=== PATIENT | male | born 1990 | race Caucasian/White ===

== ENCOUNTER 2017-11-28 16:22 | Inpatient (IN) | payer SELFPAY ==
--- NOTE | 2017-11-28 17:25 | ER Document Report ---
ED Extremity Problem, Lower - General Chief Complaint: Leg Pain Stated Complaint: LEG PAIN Time Seen by Provider: 11/28/17 16:42 Mode of Arrival: Wheelchair Information source: Patient Notes: 27-year-old male presents to ED for complaint of left lower leg pain redness and swelling since this morning. He states there is some drainage from a small opening on the lateral aspect of the lower leg. He states early a.m. about 1: 00 he washed all of his dogs and then went to bed this morning he woke up with pain in his left lower leg. He states it is very swollen and red and it was not that way last night when he went to bed. There is a very small opening to the leg but with clear drainage. States he has never smoked. TRAVEL OUTSIDE OF THE [place] IN LAST 30 DAYS: No - HPI Patient complains to provider of: Pain, Swelling Location: Leg Occurred: This morning Where: Other Onset/Duration: Gradual - He woke up with his leg very swollen red inflamed and painful states it woke him up Quality of pain: Burning, Cramping, Sharp Severity: Moderate Pain Level: 3 Recent injury: No Associated symptoms: Painful ambulation Exacerbated by: Hanging down, Movement, Walking Relieved by: Elevation - Related Data Allergies/Adverse Reactions: No Known Allergies Allergy (Verified 11/28/17 16:24) Past Medical History - General Information source: Patient - Social History Smoking Status: Never Smoker Cigarette use (# per day): No Chew tobacco use (# tins/day): No Smoking Education Provided: No Frequency of alcohol use: Rare Drug Abuse: None Lives with: Family Family History: Reviewed & Not Pertinent Patient has suicidal ideation: No Patient has homicidal ideation: No - Medical History Medical History: Other - Morbidly obese at 199.7 kg BMI of 75.6 - Past Medical History Cardiac Medical History: Reports: None Pulmonary Medical History: Reports: Hx Asthma, Hx Pneumonia EENT Medical History: Reports: None Neurological Medical History: Reports: None Endocrine Medical History: Reports: None Renal/ Medical History: Reports: None Malignancy Medical History: Reports None GI Medical History: Reports: None Musculoskeltal Medical History: Reports Hx Arthritis Skin Medical History: Reports Hx Cellulitis Psychiatric Medical History: Reports: None Traumatic Medical History: Reports: None Infectious Medical History: Reports: None Past Surgical History: Reports: Other - Tracheotomy due to pneumonia and asthma attack - Immunizations Immunizations up to date: Yes Hx Diphtheria, Pertussis, Tetanus Vaccination: Yes Hx Pneumococcal Vaccination: 02/15/14 Review of Systems - Review of Systems Constitutional: No symptoms reported EENT: No symptoms reported Cardiovascular: No symptoms reported Respiratory: No symptoms reported Gastrointestinal: No symptoms reported Genitourinary: No symptoms reported Male Genitourinary: No symptoms reported Musculoskeletal: No symptoms reported Skin: No symptoms reported Hematologic/Lymphatic: No symptoms reported Neurological/Psychological: No symptoms reported -: Yes All other systems reviewed and negative Physical Exam - Vital signs Vitals: Temp Pulse Resp BP Pulse Ox 100.7 F H 131 H 22 H 169/67 H 95 11/28/17 16:33 11/28/17 16:33 11/28/17 16:33 11/28/17 16:33 11/28/17 16:33 Interpretation: Normal, Hypertensive, Tachycardic, Tachypneic, Febrile Notes: Very morbidly obese BMI 75.6 weight 109 9.7 kg height 5 foot 4 inches - General General appearance: Appears well, Alert - HEENT Head: Normocephalic, Atraumatic Eyes: Normal Pupils: PERRL - Respiratory Respiratory status: No respiratory distress Chest status: Nontender Breath sounds: Normal Chest palpation: Normal - Cardiovascular Rhythm: Tachycardia Heart sounds: Normal auscultation Murmur: No - Abdominal Inspection: Normal Distension: No distension Bowel sounds: Normal Tenderness: Nontender Organomegaly: No organomegaly - Back Back: Normal, Nontender - Extremities General upper extremity: Normal inspection, Nontender, Normal color, Normal ROM , Normal temperature General lower extremity: Normal ROM, Normal temperature, Normal weight bearing. No: Feliberto's sign Calf: Tender, Other - Erythematous with the open draining wound on the lower lateral aspect of the leg Ankle: Tender, Edema, Other - Erythema - Neurological Neuro grossly intact: Yes Cognition: Normal Orientation: AAOx4 [place] Coma Scale Eye Opening: Spontaneous [place] Coma Scale Verbal: Oriented [place] Coma Scale Motor: Obeys Commands [place] Coma Scale Total: 15 Speech: Normal Motor strength normal: LUE, RUE, LLE, RLE Sensory: Normal - Psychological Associated symptoms: Normal affect, Normal mood - Skin Skin Temperature: Warm Skin Moisture: Dry Skin Color: Normal Location of irregularity: Extremities Character of irregularity: Erythematous Irregularity with: Scaling, Inflammation, Weeping Course - Re-evaluation Re-evalutation: 11/29/17 01:20 Discussed labs and Doppler with Dr. Euceda to the patient would need to be admitted. The patient was admitted to Dr. Levine. Doppler was negative WBCs for very elevated. Patient was started on clindamycin. - Vital Signs Vital signs: Temp Pulse Resp BP Pulse Ox 99.7 F 113 H 16 126/95 H 100 11/28/17 23:25 11/28/17 20:13 11/29/17 00:01 11/29/17 00:01 11/29/17 00:01 - Laboratory Result Diagrams: 11/28/17 17:55 11/28/17 17:55 Laboratory results interpreted by me: 11/28/17 11/28/17 17:55 19:05 WBC 21.8 H Hgb 11.2 L Hct 34.0 L MCV 74 L MCH 24.4 L RDW 17.1 H Seg Neuts % (Manual) 91 H Band Neutrophils % 1 L Lymphocytes % (Manual) 5 L Monocytes % (Manual) 2 L Abs Neuts (Manual) 20.1 H Urine Urobilinogen 2.0 H Discharge - Discharge Clinical Impression: Cellulitis of left lower extremity Disposition: ADMITTED INPATIENT Admitting Provider: Allison Levine Unit Admitted: Telemetry
[2017-11-28] MEDS ORDERED: NORMAL SALINE 1000 ML 1,000 ML IV ONE (17:28)
[2017-11-28 18:15] LABS: HEMOGLOBIN 11.2 g/dL (13.5-17.0); MEAN CORPUSCULAR HEMOGLOBIN 24.4 pg (27.0-33.4); MEAN CORPUSCULAR VOLUME 74 fl (80-97); PLATELET COUNT 373 10^3/uL (150-450); RED BLOOD COUNT 4.58 10^6/uL (4.35-5.55); RED CELL DISTRIBUTION WIDTH 17.1 % (11.5-14.0); WHITE BLOOD COUNT 21.8 10^3/uL (4.0-10.5)
[2017-11-28 18:34] LABS: ALANINE AMINOTRANSFERASE 50 U/L (21-72); ALBUMIN 3.8 g/dL (3.5-5.0); ALKALINE PHOSPHATASE 91 U/L (38-126); ANION GAP 12 (5-19); ASPARTATE AMINO TRANSFERASE 26 U/L (17-59); BILIRUBIN,DIRECT 0.2 mg/dL (0.0-0.4); BILIRUBIN,TOTAL 0.5 mg/dL (0.2-1.3); BLOOD UREA NITROGEN 13 mg/dL (7-20); CALCIUM 9.2 mg/dL (8.4-10.2); CARBON DIOXIDE 26 mmol/L (22-30); CHLORIDE 103 mmol/L (98-107); GLUCOSE 109 mg/dL (75-110); POTASSIUM 3.9 mmol/L (3.6-5.0); TOTAL PROTEIN 7.3 g/dL (6.3-8.2)
[2017-11-28 18:49] LABS: ABSOLUTE LYMPHOCYTES# (MANUAL) 1.1 10^3/uL (0.5-4.7); ABSOLUTE MONOCYTES # (MANUAL) 0.4 10^3/uL (0.1-1.4); ABSOLUTE NEUTROPHILS# (MANUAL) 20.1 10^3/uL (1.7-8.2); BAND NEUTROPHILS % (MANUAL) 1 % (3-5); BASOPHILS % (MANUAL) 0 % (0-2); EOSINOPHILS % (MANUAL) 1 % (0-6); LYMPHOCYTES % (MANUAL) 5 % (13-45); MONOCYTES % (MANUAL) 2 % (3-13); SEGMENTED NEUTROPHILS % (MAN) 91 % (42-78); TOTAL CELLS COUNTED 100
[2017-11-28 18:51] LABS: TOXIC GRANULATION SLIGHT; TOXIC VACUOLATION PRESENT
[2017-11-28 18:52] LABS: ANISOCYTOSIS 1+; OVALOCYTES SLIGHT; PLATELET COMMENT ADEQUATE; POIKILOCYTOSIS SLIGHT
[2017-11-28] MEDS ORDERED: ACETAMINOPHEN 325 MG TABLET PO ONE (19:02)
[2017-11-28 19:27] LABS: APPEARANCE,URINE CLEAR; BILIRUBIN,URINE NEGATIVE (NEGATIVE); COLOR,URINE YELLOW; GLUCOSE, URINE NEGATIVE (NEGATIVE); KETONES,URINE NEGATIVE (NEGATIVE); LEUKOCYTE ESTERASE,URINE NEGATIVE (NEGATIVE); NITRITE,URINE NEGATIVE (NEGATIVE); PROTEIN,URINE NEGATIVE (NEGATIVE); URINE SPECIFIC GRAVITY 1.021
[2017-11-28] MEDS ORDERED: CLINDAMYCIN 600 MG/D5W RTU 600 MG/50 ML RTUPB IV ONE (20:09)
--- NOTE | 2017-11-28 20:29 | RADIOLOGY REPORT (SQ) ---
EXAM DESCRIPTION: VENOUS UNILATERAL LOWER COMPLETED DATE/TIME: 11/28/2017 8:20 pm REASON FOR STUDY: swelling pain to left leg COMPARISON: None. TECHNIQUE: Dynamic and static boyer scale and color images acquired of the the left leg venous system . Selected spectral images acquired with additional compression and augmentation maneuvers. The contr alateral common femoral vein and saphenofemoral junction were also imaged. Images stored on PACS. LIMITATIONS: Morbid obesity. FINDINGS: No DVT visualized in the visualized portions of the left femoral and popliteal veins. OTHER: No other significant finding. CONTRALATERAL COMMON FEMORAL VEIN AND SAPHENOFEMORAL JUNCTION: Normal phasicity, compression and augmentation. No visualized echogenic material on boyer scale. No de fects on color images. IMPRESSION: No DVT visualized in the visualized portions of the left femoral and popliteal veins. TECHNICAL DOCUMENTATION: JOB ID: [id number]- All Rights Reserved Reading location - IP/workstation name: [email or web address]
[2017-11-28] MEDS ORDERED: MAG HYDROX/AL HYDROX/SIMETH SUSP 30 ML UDCUP PO PRN (20:50)
[2017-11-28] MEDS ORDERED: ONDANSETRON HCL INJ/PF 4 MG/2 ML SDV IV PRN (20:50)
[2017-11-28] MEDS: NORMAL SALINE 1000 ML 1,000 ML IV SCH (23:29)
[2017-11-28] MEDS: HEPARIN SOD (PORCINE) 5,000 UNIT/ML 1 ML SYRINGE SUBCUT SCH (23:30)
[2017-11-29] MEDS: KETOROLAC TROMETHAMINE INJ/PF 30 MG/1 ML SDV IV PRN (03:57)
[2017-11-29] MEDS ORDERED: CLINDAMYCIN 900 MG/D5W RTU 900 MG/50 ML RTUPB IV ONE (04:00)
[2017-11-29] MEDS ORDERED: LEVOFLOXACIN 750 MG/D5W RTU 750 MG/150 ML RTUPB IV ONE (04:00)
[2017-11-29] MEDS: ACETAMINOPHEN 325 MG TABLET PO PRN (04:46)
--- NOTE | 2017-11-29 06:21 | PDOC H&P ---
History of Present Illness Admission Date/PCP: 11/28/17 20:55 KAYLIE BEAR MD Patient complains of: Left leg pain and swelling History of Present Illness: MOON ALEJO JR is a 27 year old male with history of super morbid obesity, venous stasis and debility. Patient presents with 48 hours of increasing left lower extremity pain and swelling of the last 12 hours he developed serosanguineous exudate and fever. In the emergency room is found to have leukocytosis, fever and referred to the hospitalist for admission. Patient denies injury, recent antibiotic use, admits multiple previous episodes. Lower extremity Doppler negative for DVT. Past Medical History Cardiac Medical History: Reports: None Pulmonary Medical History: Reports: Asthma, Pneumonia EENT Medical History: Reports: None Neurological Medical History: Reports: None Endocrine Medical History: Reports: None, Diabetes Mellitus Type 2 Renal/ Medical History: Reports: None Malignancy Medical History: Reports: None GI Medical History: Reports: None Musculoskeltal Medical History: Reports: Arthritis Psychiatric Medical History: Reports: None Traumatic Medical History: Reports: None Infectious Medical History: Reports: None Past Surgical History Past Surgical History: Reports: Orthopedic Surgery, Other - Tracheotomy due to pneumonia and asthma attack Social History Information Source: Patient Lives with: Family Smoking Status: Never Smoker Frequency of Alcohol Use: Rare Hx Recreational Drug Use: No Drugs: None Hx Prescription Drug Abuse: No - Advance Directive Resuscitation Status: Full Code Family History Family History: COPD, DM Parental Family History Reviewed: Yes Children Family History Reviewed: Yes Sibling(s) Family History Reviewed.: Yes Medication/Allergy Home Medications: Albuterol Sulfate [Ventolin Hfa] 2 puff IH Q4HP PRN 11/28/17 Fluticasone/Salmeterol [Advair 250-50 Diskus 28 dose] 1 puff IH Q12 11/28/17 Pantoprazole Sodium [Protonix] 40 mg PO DAILY 11/28/17 Allergies/Adverse Reactions: No Known Allergies Allergy (Verified 11/28/17 16:24) Review of Systems Constitutional: PRESENT: as per HPI, fatigue, weakness, weight gain Eyes: ABSENT: visual disturbances Ears: ABSENT: hearing changes Cardiovascular: ABSENT: chest pain, dyspnea on exertion, edema, orthropnea, palpitations Respiratory: ABSENT: cough, hemoptysis Gastrointestinal: ABSENT: abdominal pain, constipation, diarrhea, hematemesis, hematochezia, nausea, vomiting Genitourinary: ABSENT: dysuria, hematuria Musculoskeletal: ABSENT: joint swelling Integumentary: PRESENT: as per HPI, erythema, lesions, wounds. ABSENT: rash Neurological: ABSENT: abnormal gait, abnormal speech, confusion, dizziness, focal weakness, syncope Psychiatric: ABSENT: anxiety, depression, homidical ideation, suicidal ideation Endocrine: ABSENT: cold intolerance, heat intolerance, polydipsia, polyuria Hematologic/Lymphatic: ABSENT: easy bleeding, easy bruising Physical Exam Vital Signs: Temp Pulse Resp BP Pulse Ox 101.7 F H 105 H 21 H 140/55 H 95 11/29/17 04:08 11/29/17 04:08 11/29/17 04:08 11/29/17 04:08 11/29/17 04:08 Intake & Output 11/27/17 11/28/17 11/29/17 11:59 11:59 11:59 Weight 199.7 kg General appearance: PRESENT: cooperative, mild distress, morbidly obese Head exam: PRESENT: atraumatic, normocephalic Eye exam: PRESENT: conjunctiva pink, EOMI, PERRLA. ABSENT: scleral icterus Ear exam: PRESENT: normal external ear exam Mouth exam: PRESENT: moist, tongue midline Neck exam: ABSENT: carotid bruit, JVD, lymphadenopathy, thyromegaly Respiratory exam: PRESENT: clear to auscultation les. ABSENT: rales, rhonchi, wheezes Cardiovascular exam: PRESENT: RRR. ABSENT: diastolic murmur, rubs, systolic murmur Pulses: PRESENT: normal dorsalis pedis pul Vascular exam: PRESENT: normal capillary refill GI/Abdominal exam: PRESENT: normal bowel sounds, soft. ABSENT: distended, guarding, mass, organolmegaly, rebound, tenderness Rectal exam: PRESENT: deferred Extremities exam: PRESENT: calf tenderness, tenderness, +2 edema Neurological exam: PRESENT: alert, awake, oriented to person, oriented to place , oriented to time, oriented to situation, CN II-XII grossly intact. ABSENT: motor sensory deficit Psychiatric exam: PRESENT: appropriate affect, normal mood. ABSENT: homicidal ideation, suicidal ideation Skin exam: PRESENT: erythema, warm. ABSENT: intact Results Impressions: Venous Doppler Study 11/28/17 17:17 IMPRESSION: No DVT visualized in the visualized portions of the left femoral and popliteal veins. Assessment & Plan - Diagnosis (1) Venous stasis Is this a current diagnosis for this admission?: Yes Plan: Elevation heparin and MAURICE stockings as tolerated (2) Morbid obesity with BMI of 70 and over, adult Is this a current diagnosis for this admission?: Yes Plan: Morbid obesity will evaluate for metabolic cause with evaluation of thyroid function and dietitian consultation (3) Cellulitis of left lower extremity Is this a current diagnosis for this admission?: Yes Plan: Empiric antibiotics with coverage for community-acquired MRSA. Follow-up blood culture and CBC - Time Time Spent: 30 to 50 Minutes - Inpatient Certification Medical Necessity: Need Close Monitoring Due to Risk of Patient Decompensation
[2017-11-29 06:26] LABS: ABSOLUTE BASOPHILS # (AUTO) 0.1 10^3/uL (0.0-0.2); ABSOLUTE LYMPHOCYTES (AUTO) 1.2 10^3/uL (0.5-4.7); ABSOLUTE NEUT (AUTO) 11.5 10^3/uL (1.7-8.2); BASOPHILS % (AUTO) 0.5 % (0-2); EOSINOPHILS % (AUTO) 0.2 % (0-6); HEMATOCRIT 32.3 % (37.9-51.0); HEMOGLOBIN 10.7 g/dL (13.5-17.0); LYMPHOCYTES % (AUTO) 8.5 % (13-45); MEAN CORPUSCULAR HEMOGLOBIN 24.2 pg (27.0-33.4); MEAN CORPUSCULAR HGB CONC 33.1 g/dL (32.0-36.0); MEAN CORPUSCULAR VOLUME 73 fl (80-97); MONOCYTES % (AUTO) 7.2 % (3-13); PLATELET COUNT 299 10^3/uL (150-450); RED BLOOD COUNT 4.41 10^6/uL (4.35-5.55); RED CELL DISTRIBUTION WIDTH 17.7 % (11.5-14.0); SEGMENTED NEUTROPHILS % (AUTO) 83.6 % (42-78); TOTAL CELLS COUNTED % (AUTO) 100 %; WHITE BLOOD COUNT 13.7 10^3/uL (4.0-10.5)
[2017-11-29] MEDS: HEPARIN SOD (PORCINE) 5,000 UNIT/ML 1 ML SYRINGE SUBCUT SCH ×3 (06:42→22:50)
[2017-11-29 06:44] LABS: ANION GAP 10 (5-19); BLOOD UREA NITROGEN 15 mg/dL (7-20); CALCIUM 8.9 mg/dL (8.4-10.2); CARBON DIOXIDE 25 mmol/L (22-30); CHLORIDE 107 mmol/L (98-107); GLUCOSE 103 mg/dL (75-110); POTASSIUM 3.8 mmol/L (3.6-5.0); SODIUM 142.4 mmol/L (137-145)
[2017-11-29] MEDS: NORMAL SALINE 1000 ML 1,000 ML IV SCH ×2 (10:37→18:19)
[2017-11-29] MEDS: DOCUSATE SODIUM 100 MG CAPSULE PO SCH ×2 (13:02→18:18)
[2017-11-29] MEDS ORDERED: CLINDAMYCIN 900 MG/D5W RTU 900 MG/50 ML RTUPB IV SCH (14:00)
[2017-11-29] MEDS: CLINDAMYCIN 900 MG/D5W RTU 900 MG/50 ML RTUPB IV SCH ×2 (14:49→22:50)
--- NOTE | 2017-11-29 22:07 | Progress Note ---
Provider Note Provider Note: Agree with academic advisor plan of care. Patient seen this morning on rounds, he remains afebrile and nontoxic appearing. +erythema and +1 edema to LLE. No drainage noted to LLE. The plan is as follows: 1. Cellulitis - empiric antibiotic coverage. Wound and blood cultures pending. 2. Asthma - patient endorses history. Continue home dose Advair.
[2017-11-30] MEDS: ACETAMINOPHEN 325 MG TABLET PO PRN (01:06)
[2017-11-30 05:29] LABS: ABSOLUTE EOSINOPHILS # (AUTO) 0.1 10^3/uL (0.0-0.6); ABSOLUTE LYMPHOCYTES (AUTO) 1.2 10^3/uL (0.5-4.7); ABSOLUTE MONOCYTES (AUTO) 0.9 10^3/uL (0.1-1.4); ABSOLUTE NEUT (AUTO) 6.4 10^3/uL (1.7-8.2); BASOPHILS % (AUTO) 0.4 % (0-2); EOSINOPHILS % (AUTO) 0.6 % (0-6); MEAN CORPUSCULAR HEMOGLOBIN 24.4 pg (27.0-33.4); MEAN CORPUSCULAR HGB CONC 33.4 g/dL (32.0-36.0); MEAN CORPUSCULAR VOLUME 73 fl (80-97); MONOCYTES % (AUTO) 10.4 % (3-13); PLATELET COUNT 294 10^3/uL (150-450); RED BLOOD COUNT 4.11 10^6/uL (4.35-5.55); RED CELL DISTRIBUTION WIDTH 17.1 % (11.5-14.0); SEGMENTED NEUTROPHILS % (AUTO) 74.6 % (42-78); TOTAL CELLS COUNTED % (AUTO) 100 %; WHITE BLOOD COUNT 8.7 10^3/uL (4.0-10.5)
[2017-11-30 05:50] LABS: ANION GAP 10 (5-19); BLOOD UREA NITROGEN 11 mg/dL (7-20); CALCIUM 8.9 mg/dL (8.4-10.2); CARBON DIOXIDE 24 mmol/L (22-30); CHLORIDE 107 mmol/L (98-107); GLUCOSE 90 mg/dL (75-110); PHOSPHORUS 3.7 mg/dL (2.5-4.5); POTASSIUM 3.9 mmol/L (3.6-5.0); SODIUM 140.9 mmol/L (137-145)
[2017-11-30] MEDS: CLINDAMYCIN 900 MG/D5W RTU 900 MG/50 ML RTUPB IV SCH ×3 (06:18→21:15)
[2017-11-30] MEDS: HEPARIN SOD (PORCINE) 5,000 UNIT/ML 1 ML SYRINGE SUBCUT SCH ×3 (06:29→21:15)
[2017-11-30] MEDS: IPRATROPIUM/ALBUTEROL 0.5-2.5 MG/3 ML AMPUL NEB PRN (08:11)
[2017-11-30] MEDS: LEVOFLOXACIN 750 MG/D5W RTU 750 MG/150 ML RTUPB IV SCH (10:23)
[2017-11-30] MEDS: DOCUSATE SODIUM 100 MG CAPSULE PO SCH ×2 (10:23→17:36)
--- NOTE | 2017-11-30 16:34 | PDOC PROGRESS REPORT ---
Subjective Progress Note for:: 11/30/17 Subjective:: MOON ALEJO JR is a 27 year old morbidly obese (BMI 75.6) man with a PMH of asthma who presents to [facility] with cellulitis of the LLE. The patient was seen this morning on rounds, he is resting comfortably in bed on room air. He states that his LLE feels much better today, he denies pain or TTP to the affected area. He also denies fever or chills and states he is able to able to ambulate without difficulty. The erythema and edema of LLE has decreased significantly in the last 24 hours. Reason For Visit: LEFT LEG CELLULITIS,SUPER MORBID OBESITY Physical Exam Vital Signs: Temp Pulse Resp BP Pulse Ox 98.8 F 95 18 144/75 H 95 11/30/17 12:00 11/30/17 14:00 11/30/17 12:00 11/30/17 12:00 11/30/17 12:00 Intake & Output 11/29/17 11/30/17 12/01/17 06:59 06:59 06:59 Intake Total 1200 5889 Balance 1200 5889 Weight 199.7 kg 199.7 kg General appearance: PRESENT: morbidly obese Eye exam: PRESENT: conjunctiva pink, PERRLA Mouth exam: PRESENT: moist Neck exam: PRESENT: full ROM Respiratory exam: PRESENT: clear to auscultation les, symmetrical, unlabored Cardiovascular exam: PRESENT: +S1, +S2 Pulses: PRESENT: normal radial pulses, normal dorsalis pedis pul GI/Abdominal exam: PRESENT: soft. ABSENT: tenderness Rectal exam: PRESENT: deferred Extremities exam: PRESENT: full ROM, other - CIRCUMFRENTAL ERYTHEMA NOTED TO THE LEFT LOWER EXTREMITY, BELOW THE KNEE Musculoskeletal exam: PRESENT: ambulatory, full ROM Neurological exam: PRESENT: alert, awake, oriented to person, oriented to place , oriented to time, oriented to situation Psychiatric exam: PRESENT: appropriate affect Skin exam: PRESENT: dry, intact, warm Results Laboratory Results: 11/30/17 05:10 11/30/17 05:10 11/30/17 11/30/17 05:10 05:10 WBC 8.7 RBC 4.11 L Hgb 10.0 L Hct 30.0 L MCV 73 L MCH 24.4 L MCHC 33.4 RDW 17.1 H Plt Count 294 Seg Neutrophils % 74.6 Lymphocytes % 14.0 Monocytes % 10.4 Eosinophils % 0.6 Basophils % 0.4 Absolute Neutrophils 6.4 Absolute Lymphocytes 1.2 Absolute Monocytes 0.9 Absolute Eosinophils 0.1 Absolute Basophils 0.0 Sodium 140.9 Potassium 3.9 Chloride 107 Carbon Dioxide 24 Anion Gap 10 BUN 11 Creatinine 0.64 Est GFR ( Amer) > 60 Est GFR (Non-Af Amer) > 60 Glucose 90 Calcium 8.9 Phosphorus 3.7 Magnesium 2.0 Impressions: Venous Doppler Study 11/28/17 17:17 IMPRESSION: No DVT visualized in the visualized portions of the left femoral and popliteal veins. Status: Imported from PACS Assessment & Plan - Diagnosis (1) Cellulitis of left lower extremity Is this a current diagnosis for this admission?: Yes Plan: The patient presented with erythema, pain, and edema to the LLE that began hours after bathing his dogs. Circumferential erythema and edema is present to the LLE below the knee, terminating at the ankle Improving leukocytosis 21->8.7 Remains afebrile and non-toxic appearing Wound culture positive for G+ cocci and Klebsiella Pneumonia Blood cultures no growth to date Continue Clindamycin and Levaquin. Klebsiella is susceptible to Levaquin, will keep Clindamycin for Strep/Staph coverage. Meets criteria for inpatient stay given the ongoing need for IV antibiotics (2) Asthma Qualifiers: Asthma severity: unspecified severity Asthma persistence: intermittent Asthma complication type: uncomplicated Qualified Code(s): J45.20 - Mild intermittent asthma, uncomplicated Is this a current diagnosis for this admission?: Yes Plan: Patient endorses a history of asthma Continue home dose advair PRN nebulizer treatments for dysnea/shortness of breath (3) Morbid obesity with BMI of 70 and over, adult Is this a current diagnosis for this admission?: Yes Plan: Patient's BMI is 75.6 kg/m2, well above the CDC's upper limit for morbid obesity (35 kg/m2) Exercise caution with dietary choices - no high fat foods, no soda, limited sugar - Time Time Spent with patient: 15-24 minutes Medications reviewed and adjusted accordingly: Yes Anticipated discharge: Home - Inpatient Certification Based on my medical assessment, after consideration of the patient's comorbidities, presenting symptoms, or acuity I expect that the services needed warrant INPATIENT care.: Yes I certify that my determination is in accordance with my understanding of Medicare's requirements for reasonable and necessary INPATIENT services [42 CFR 412.3e].: Yes Medical Necessity: Need for IV Antibiotics, Risk of Complication if Not Cared For in Hospital
[2017-11-30] MEDS: NORMAL SALINE 1000 ML 1,000 ML IV SCH (17:40)
[2017-11-30] MEDS: KETOROLAC TROMETHAMINE INJ/PF 30 MG/1 ML SDV IV PRN (19:57)
[2017-12-01] MEDS: IPRATROPIUM/ALBUTEROL 0.5-2.5 MG/3 ML AMPUL NEB PRN ×2 (00:53→14:02)
[2017-12-01] MEDS: CLINDAMYCIN 900 MG/D5W RTU 900 MG/50 ML RTUPB IV SCH ×2 (06:24→13:10)
[2017-12-01] MEDS: HEPARIN SOD (PORCINE) 5,000 UNIT/ML 1 ML SYRINGE SUBCUT SCH ×2 (06:24→13:11)
[2017-12-01 07:51] LABS: ABSOLUTE BASOPHILS # (AUTO) 0.1 10^3/uL (0.0-0.2); ABSOLUTE EOSINOPHILS # (AUTO) 0.2 10^3/uL (0.0-0.6); ABSOLUTE MONOCYTES (AUTO) 0.7 10^3/uL (0.1-1.4); ABSOLUTE NEUT (AUTO) 6.7 10^3/uL (1.7-8.2); BASOPHILS % (AUTO) 0.6 % (0-2); EOSINOPHILS % (AUTO) 2.1 % (0-6); HEMATOCRIT 30.3 % (37.9-51.0); LYMPHOCYTES % (AUTO) 11.3 % (13-45); MEAN CORPUSCULAR HEMOGLOBIN 24.4 pg (27.0-33.4); MEAN CORPUSCULAR HGB CONC 32.9 g/dL (32.0-36.0); MEAN CORPUSCULAR VOLUME 74 fl (80-97); MONOCYTES % (AUTO) 7.7 % (3-13); PLATELET COUNT 290 10^3/uL (150-450); RED BLOOD COUNT 4.09 10^6/uL (4.35-5.55); RED CELL DISTRIBUTION WIDTH 17.6 % (11.5-14.0); SEGMENTED NEUTROPHILS % (AUTO) 78.3 % (42-78); TOTAL CELLS COUNTED % (AUTO) 100 %; WHITE BLOOD COUNT 8.6 10^3/uL (4.0-10.5)
[2017-12-01] MEDS: LEVOFLOXACIN 750 MG/D5W RTU 750 MG/150 ML RTUPB IV SCH (10:41)
[2017-12-01] MEDS: DOCUSATE SODIUM 100 MG CAPSULE PO SCH (10:41)
[2017-12-01 13:28] VITALS: BP 142/80
--- NOTE | 2017-12-04 08:44 | PDOC DISCHARGE SUMMARY ---
General - Admit/Disc Date/PCP Admission Date/Primary Care Provider: 11/28/17 20:55 KAYLIE BEAR MD Discharge Date: 12/01/17 - Discharge Diagnosis (1) Cellulitis of left lower extremity Is this a current diagnosis for this admission?: Yes (2) Asthma Is this a current diagnosis for this admission?: Yes (3) Morbid obesity with BMI of 70 and over, adult Is this a current diagnosis for this admission?: Yes - Additional Information Resuscitation Status: Full Code Discharge Diet: As Tolerated Discharge Activity: Activity As Tolerated Prescriptions: Clindamycin HCl 600 mg PO Q8H #21 capsule Levofloxacin [Levaquin 750 mg Tablet] 750 mg PO DAILY #7 tab Home Medications: Albuterol Sulfate [Ventolin Hfa] 2 puff IH Q4HP PRN 11/28/17 Fluticasone/Salmeterol [Advair 250-50 Diskus 28 dose] 1 puff IH Q12 11/28/17 Pantoprazole Sodium [Protonix] 40 mg PO DAILY 11/28/17 Clindamycin HCl 600 mg PO Q8H #21 capsule 12/01/17 Levofloxacin [Levaquin 750 mg Tablet] 750 mg PO DAILY #7 tab 12/01/17 History of Present Illness History of Present Illness: MOON ALEJO JR is a 27 year old male with history of super morbid obesity, venous stasis and debility. Patient presents with 48 hours of increasing left lower extremity pain and swelling of the last 12 hours he developed serosanguineous exudate and fever. In the emergency room is found to have leukocytosis, fever and referred to the hospitalist for admission. Patient denies injury, recent antibiotic use, admits multiple previous episodes. Lower extremity Doppler negative for DVT. Hospital Course Hospital Course: 27 y.o. super morbidly obese male who presented with erythema, pain, and edema to the LLE that began hours after bathing his dogs. On physical exam, circumferential erythema and edema was present to the LLE below the knee, terminating at the ankle. There was a small puncture wound to the anterior lower leg that was draining purulent fluid. The patient initially presented with leukocytosis (WBC 21) but remained afebrile and non-toxic appearing. Blood cultures were negative, but wound culture was positive for G+ cocci and Klebsiella Pneumonia. The patient was being treated with Clindamycin and Levaquin. Klebsiella was susceptible to Levaquin, continued Clindamycin for Strep/Staph coverage. The patient's symptoms greatly improved over the course of 3 days. His leukocytosis resolved, remained afebrile, and erythema significantly diminished. The open wound on the anterior LLE was no longer draining. The patient was sent home with 7 days of oral antibiotic treatment to complete a 10 day course of treatment. Discharge instructions were thoroughly explained to the patient, he stated understanding. Physical Exam Vital Signs: Temp Pulse Resp BP Pulse Ox 98.6 F 88 16 142/80 H 96 12/01/17 14:58 12/01/17 14:58 12/01/17 14:58 12/01/17 14:58 12/01/17 14:58 Results Laboratory Results: 12/01/17 07:03 11/30/17 05:10 Impressions: Venous Doppler Study 11/28/17 17:17 IMPRESSION: No DVT visualized in the visualized portions of the left femoral and popliteal veins. Status: Imported from PACS Qualifiers - * PATIENT BEING DISCHARGED WITH ANY OF THE FOLLOWING DIAGNOSIS: No Plan Discharge Plan: DISCHARGE HOME WITH PO ANTIBIOTICS Time Spent: Less than 30 Minutes
== END 2017-12-01 15:29 | disposition home or self-care (01) | DRG 603 ==
LOC: ER 16:22 → EH 20:55 → 5 11-29 04:07
PROVIDERS: ADMIT Internal Medicine; ATTEND Internal Medicine
DX: L03.116 Cellulitis of left lower limb (principal); Z68.45 Body mass index [BMI] 70 or greater, adult; E66.01 Morbid (severe) obesity due to excess calories; J45.20 Mild intermittent asthma, uncomplicated; M19.90 Unspecified osteoarthritis, unspecified site; I87.8 Other specified disorders of veins; E11.9 Type 2 diabetes mellitus without complications; B96.1 Klebsiella pneumoniae [K. pneumoniae] as the cause of diseases classified elsewhere; B96.89 Other specified bacterial agents as the cause of diseases classified elsewhere; Z79.51 Long term (current) use of inhaled steroids; Z83.3 Family history of diabetes mellitus
CPT/HCPCS: 36415; 80048; 80053; 81001; 83735; 84100; 85025; 87040; 87070; 87077; 87186; 87205; 93971; 94640; 96361; 96365; 99285; J1644; J1885; J1956; J2405; J7030; J7620

== ENCOUNTER 2018-06-27 18:01 | Inpatient (IN) | payer SELFPAY ==
--- NOTE | 2018-06-27 19:34 | ER Document Report ---
ED Medical Screen (RME) - General Chief Complaint: Mouth Problem Stated Complaint: FATIGUE/NECK PAIN Time Seen by Provider: 06/27/18 19:24 Information source: Patient Notes: Patient presents complaining of neck and tongue pain with fatigue. Patient reports exertional shortness of breath and decreased appetite. Patient reports increased fatigue stating that he has slept at least half the day over the past 3 days. I have greeted and performed a rapid initial assessment of this patient. A comprehensive ED assessment and evaluation of the patient, analysis of test results and completion of the medical decision making process will be conducted by additional ED providers. TRAVEL OUTSIDE OF THE [place] IN LAST 30 DAYS: No - Related Data Allergies/Adverse Reactions: No Known Allergies Allergy (Verified 06/27/18 18:09) Past Medical History - Social History Chew tobacco use (# tins/day): No Frequency of alcohol use: None Drug Abuse: None Pulmonary Medical History: Reports: Hx Asthma, Hx Pneumonia Endocrine Medical History: Reports: Hx Diabetes Mellitus Type 2 Renal/ Medical History: Denies: Hx Peritoneal Dialysis Musculoskeltal Medical History: Reports Hx Arthritis Skin Medical History: Reports Hx Cellulitis Past Surgical History: Reports: Hx Orthopedic Surgery, Other - Tracheotomy due to pneumonia and asthma attack - Immunizations Immunizations up to date: Yes Hx Diphtheria, Pertussis, Tetanus Vaccination: Yes Physical Exam - Vital signs Vitals: Temp Pulse Resp BP Pulse Ox 99.8 F 103 H 22 H 148/81 H 93 06/27/18 18:07 06/27/18 18:07 06/27/18 18:07 06/27/18 18:07 06/27/18 18:07 - General General appearance: Alert Notes: Morbidly obese, able to speak without any dyspnea Course - Vital Signs Vital signs: Temp Pulse Resp BP Pulse Ox 99.8 F 103 H 22 H 148/81 H 93 06/27/18 18:07 06/27/18 18:07 06/27/18 18:07 06/27/18 18:07 06/27/18 18:07 Doctor's Discharge - Discharge Referrals: KAYLIE BEAR MD [Primary Care Provider] - Follow up as needed
--- NOTE | 2018-06-27 20:31 | RADIOLOGY REPORT (SQ) ---
EXAM DESCRIPTION: CHEST 2 VIEWS COMPLETED DATE/TIME: 06/27/2018 8:05 pm REASON FOR STUDY: exertional sob COMPARISON: 07/27/2015 EXAM PARAMETERS: NUMBER OF VIEWS: two views TECHNIQUE: Digital Frontal and Lateral radiographic views of the chest acquired. RADIATION DOSE: NA LIMITATIONS: none FINDINGS: LUNGS AND PLEURA: Diffuse bilateral interstitial pulmonary opacity. MEDIASTINUM AND HILAR STRUCTURES: No masses or contour abnormalities. HEART AND VASCULAR STRUCTURES: Cardiomegaly and prominence of the pulmonary vasculature. BONES: No acute findings. HARDWARE: None in the chest. OTHER: No other significant finding. IMPRESSION: Diffuse bilateral interstitial pulmonary opacity, likely mild pulmonary edema in the set ting of cardiomegaly. There is no focal airspace opacity. TECHNICAL DOCUMENTATION: JOB ID: [id number] [employer]- All Rights Reserved Reading location - IP/workstation name: [email or web address]
[2018-06-27 20:42] LABS: ABSOLUTE NEUT (AUTO) 9.2 10^3/uL (1.7-8.2); BASOPHILS % (AUTO) 0.3 % (0-2); HEMOGLOBIN 11.5 g/dL (13.5-17.0); LYMPHOCYTES % (AUTO) 8.9 % (13-45); MEAN CORPUSCULAR HGB CONC 33.7 g/dL (32.0-36.0); MEAN CORPUSCULAR VOLUME 74 fl (80-97); MONOCYTES % (AUTO) 8.7 % (3-13); PLATELET COUNT 281 10^3/uL (150-450); RED BLOOD COUNT 4.59 10^6/uL (4.35-5.55); RED CELL DISTRIBUTION WIDTH 17.3 % (11.5-14.0); SEGMENTED NEUTROPHILS % (AUTO) 82.1 % (42-78); TOTAL CELLS COUNTED % (AUTO) 100 %; WHITE BLOOD COUNT 11.2 10^3/uL (4.0-10.5)
[2018-06-27 20:59] LABS: ALANINE AMINOTRANSFERASE 41 U/L (21-72); ALBUMIN 3.6 g/dL (3.5-5.0); ALKALINE PHOSPHATASE 85 U/L (38-126); ANION GAP 7 (5-19); ASPARTATE AMINO TRANSFERASE 56 U/L (17-59); BILIRUBIN,DIRECT 0.3 mg/dL (0.0-0.4); BILIRUBIN,TOTAL 0.8 mg/dL (0.2-1.3); BLOOD UREA NITROGEN 13 mg/dL (7-20); CALCIUM 8.7 mg/dL (8.4-10.2); CARBON DIOXIDE 32 mmol/L (22-30); CHLORIDE 95 mmol/L (98-107); CREATINE KINASE 972 U/L (55-170); GLUCOSE 107 mg/dL (75-110); SODIUM 134.2 mmol/L (137-145); TOTAL PROTEIN 7.5 g/dL (6.3-8.2)
[2018-06-27 21:10] LABS: CREATINE KINASE MB 3.63 ng/mL (<4.55); NT PRO BNP 162 pg/mL (<125); TROPONIN I < 0.012 ng/mL
--- NOTE | 2018-06-27 22:39 | RADIOLOGY REPORT (SQ) ---
EXAM DESCRIPTION: CT CHEST ANGIOGRAPHY WITHOUT THEN WITH IV CONTRAST COMPLETED DATE/TME: 06/27/2018 21:14 CLINICAL HISTORY: 28 years, Male, sob red leg elevated d-dimer 2.0 COMPARISON: None. TECHNIQUE: 639 Images stored on PACS. All CT scanners at this facility use dose modulation, iterative reconstruction, and/or weight based dosing when appropriate to reduce radiation dose to as low as reasonably achievable (ALARA). Axial CTA images were obtained with coronal and sagittal MIPS. 3-D rec constructions were obtained on a dedicated workstation. [facility]: Dose Right [facility]: CareDose [facility]: Dose Right [facility]: Teradose 4D [facility]: PredictionIO LIMITATIONS: None. FINDINGS: Limited study due to patient body habitus and contrast bolus. However there is no large or central pulmonary embolus. Negative for thoracic aortic aneurysm or dissection. The heart and pericardium are unremarkable. Limited evaluation of the upper abdomen shows fatty infiltrative change to the liver. No mediastinal or hilar adenopathy. Osseous structures are grossly intact. No pneumothorax. The visualized airways are patent. Some equivocal groundglass opacities in the perihilar regions may reflect minor pneumonitis. There is an approximately 7.7 mm pleural-based nodule in the posterior left lung base. Please refer to below Fleischner Society criteria for further assessment. IMPRESSION: Limited study however no central pulmonary embolus. Negative for thoracic aortic aneurysm, or dissection. Equivocal groundglass opacities suggesting minor pneumonitis. 7.7 mm nodule in the posterior left lung base. 2017 Fleischner Society Recommendations for Single Solid Lung Nodule Follow-Up based on size (average of long- and short-axis diameters) <6 mm Low-Risk Patient: No routine follow-up <6 mm High-Risk Patient: Optional CT at 12 months 6-8 mm Low-Risk Patient: CT at 6-[address] at 18-24 months 6-8 mm High-Risk Patient: CT at 6-[address] at 18-24 months >8 mm Low-Risk Patient: Consider CT, PET/CT or tissue sampling at 3 months >8 mm High-Risk Patient: Same as for low-risk patient TECHNICAL DOCUMENTATION: Quality ID # [id number]: Final reports with documentation of one or more dose reduction techniques (e.g., Automated exposure control, adjustment of the mA and/or kV according to patient size, use of iterative reconstruction technique) copyright 2011 [employer]- All Rights Reserved
[2018-06-27 23:12] LABS: APPEARANCE,URINE SLIGHTLY-CLOUDY; BILIRUBIN,URINE NEGATIVE (NEGATIVE); GLUCOSE, URINE NEGATIVE (NEGATIVE); KETONES,URINE NEGATIVE (NEGATIVE); LEUKOCYTE ESTERASE,URINE NEGATIVE (NEGATIVE); NITRITE,URINE NEGATIVE (NEGATIVE); PROTEIN,URINE 100 mg/dL (NEGATIVE); URINE SPECIFIC GRAVITY 1.027; UROBILINOGEN,URINE NEGATIVE mg/dL (<2.0)
[2018-06-27 23:14] LABS: COLOR,URINE YELLOW
[2018-06-28] MEDS ORDERED: IPRATROPIUM/ALBUTEROL 0.5-2.5 MG/3 ML AMPUL NEB ONE (01:11)
--- NOTE | 2018-06-28 01:44 | ER Document Report ---
Addendum entered and electronically signed by CIARRA MAYES PA-C 06/28/18 02:59: Critical Care Note - Critical Care Note Total time excluding time spent on procedures (mins): 90 Comments: Patient's length of stay here in the emergency room is been greatly extended because of his presentation and because of the workup needing to be done. I have spent massive amounts of time with CT techs measuring the width of the CT machine helping him develop a way to convince patient enough to get him into the CT machine. Once that was achieved we had to wait and obtain an IV which took quite a while secondary to patient's body habitus. I spent time talking the mother and father while they were here about patient's past medical history spent time talking the patient going back into the room multiple times about his breathing and about his past medical history. I personally took the patient from the room with the pulse oximeter portable and walk team trying to ascertain his status of breathing. I did this rather than have nursing do it so I can ascertain his true respiratory status. Patient was working to breathe. This is only after a short few feet. That is when the decision was made to contact hospitalist for admission. I originally contacted him and gave the history and reason for admission and was requested that I wait and get the blood gas results. I then recontacted him after that was achieved and gave him the information at which time he except the patient has of admission. He requested that I place patient on 4 L nasal cannula which I personally went over and did since he had been moved from my section of the hospital to the main ER. The intent from the time patient first became my patient was to get him home into his own bed however that intent was not met because of his respiratory status. I truly believe patient's primary problem is going to be sleep apnea that is leading him into this fatigue and increased shortness of breath that is not been worked up for at this time. Mother states that she is going for her repeat sleep lab study next week and felt that he needed to have this done as well a long time ago. I have also given patient sitting down talking to him that if he does not have access to insurance that he might try the [facility] to see if they have any ideas are the at least they can follow him medically. They may even do sleep studies there I am not sure. But there is no doubt in my mind that in talking the patient that he has classical sleep apnea. That is why spending this much time with patient in the course of his shift and him being here over 8 hours in an attempt to get him discharged home but for the need to be admitted outweighed his desire to be discharged home. Addendum entered and electronically signed by CIARRA MAYES PA-C 06/28/18 02:48: Discharge - Discharge Clinical Impression: Hypoxemia requiring supplemental oxygen Disposition: ADMITTED INPATIENT Addendum entered and electronically signed by CIARRA MAYES PA-C 06/28/18 02:47: Course - Re-evaluation Re-evalutation: 06/28/18 02:43 I tried attempting to contact the hospitalist earlier and talk to after presenting in the [facility] Findings and my concerns with hypoxemia at 83% on the pulse oximeter he requested that I hold off on admission until such time as I could obtain an ABG. I had informed him that I had attempted and missed a nurse had attempted and missed and respiratory was supposed to be coming down as soon as they were finished on the floor with a another case. But he is requested that I wait until those results are do before he decides whether to admit patient or not based on the fact that a pulse ox may not be accurate. And that it may be positional. He is expecting a PO2 in the 50s in order for admission. The ABG was obtained and it showed the patient was hypoxic with a PaO2 of 56.6% he did sat 91.1 but in order to get that he was having to hyperventilate and his pH was 7.5. At this Dr. Harris accepted admission to the patient onto the floor.nd he requested that I place patient on 4 L nasal cannula of oxygen while down here in emergency room. And he was going to place the orders. - Vital Signs Vital signs: Temp Pulse Resp BP Pulse Ox 99.8 F 103 H 22 H 148/81 H 93 06/27/18 18:07 06/27/18 18:07 06/27/18 18:07 06/27/18 18:07 06/27/18 18:07 - Laboratory Result Diagrams: 06/27/18 20:30 06/27/18 20:30 Laboratory results interpreted by me: 06/27/18 06/27/18 06/27/18 20:30 20:30 20:30 WBC 11.2 H Hgb 11.5 L Hct 34.0 L MCV 74 L MCH 25.0 L RDW 17.3 H Seg Neutrophils % 82.1 H Lymphocytes % 8.9 L Absolute Neutrophils 9.2 H D-Dimer ABG pH ABG pO2 ABG HCO3 ABG Total CO2 ABG O2 Saturation Sodium 134.2 L Chloride 95 L Carbon Dioxide 32 H Creatine Kinase 972 H NT-Pro-B Natriuret Pep 162 H Urine Protein Urine Blood 06/27/18 06/27/18 06/28/18 20:30 22:59 02:05 WBC Hgb Hct MCV MCH RDW Seg Neutrophils % Lymphocytes % Absolute Neutrophils D-Dimer 2.07 H ABG pH 7.50 H ABG pO2 56.6 L ABG HCO3 27.3 H ABG Total CO2 28.4 H ABG O2 Saturation 91.8 L Sodium Chloride Carbon Dioxide Creatine Kinase NT-Pro-B Natriuret Pep Urine Protein 100 H Urine Blood SMALL H Original Note: ED Respiratory Problem - General Chief Complaint: Mouth Problem Stated Complaint: FATIGUE/NECK PAIN Time Seen by Provider: 06/27/18 19:24 Mode of Arrival: Ambulatory Information source: Patient, Relative Notes: A 28-year-old morbidly obese male comes emergency room tonight with multiple complaints. He has complaints of tongue pain, exertional shortness of breath, decreased appetite, increased fatigue, some neck discomfort. He states all this is been going on at least for the past 3 days. Patient states that the past 3 days he would wake up in the morning felt okay for 30 minutes and then he would get sleepy again he would fall to sleep for an hour or so wake up again and then this cycle would continue on. He also complains of sores in his mouth and on his tongue. That have been there also for 3 days she denies any fevers. Although he has had chills and some sweats he has had a little bit of dizziness with walking. But his primary complaint is fatigue. Patient has a history of venous stasis of the left leg. He has had a history of cellulitis of the left leg. He has had history of asthma and a history of pneumonia. He is diabetes type 2. Patient was last seen here believe in October with a cellulitis of the left lower extremity. He was admitted with antibiotics at that time and then discharged home later. Patient does not smoke. 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 TRAVEL OUTSIDE OF THE [place] IN LAST 30 DAYS: No - HPI Patient complains to provider of: Asthma, Cough, Short of breath Onset: Other - 3 days Duration: Continuous, Worse/persistent Initiating Event: URI - Is Quality of pain: Achy Severity: Moderate Pain Level: 3 Short of Breath: Moderate Chest pain/discomfort: Worse with deep breaths Cough: Nonproductive Associated symptoms: Chills, Congestion, Cough, Difficulty breathing, Short of breath. denies: Fever Similar symptoms previously: Yes Recently seen / treated by doctor: No - Related Data Allergies/Adverse Reactions: No Known Allergies Allergy (Verified 06/27/18 18:09) Past Medical History - General Information source: Parent - Social History Smoking Status: Never Smoker Cigarette use (# per day): No Chew tobacco use (# tins/day): No Smoking Education Provided: No Frequency of alcohol use: None Drug Abuse: None Family History: Reviewed & Not Pertinent, COPD, DM Patient has suicidal ideation: No Patient has homicidal ideation: No Pulmonary Medical History: Reports: Hx Asthma, Hx Pneumonia Endocrine Medical History: Reports: Hx Diabetes Mellitus Type 2 Renal/ Medical History: Denies: Hx Peritoneal Dialysis Musculoskeletal Medical History: Reports Hx Arthritis Skin Medical History: Reports Hx Cellulitis Past Surgical History: Reports: Hx Orthopedic Surgery, Other - Tracheotomy due to pneumonia and asthma attack - Immunizations Immunizations up to date: Yes Hx Diphtheria, Pertussis, Tetanus Vaccination: Yes Hx Pneumococcal Vaccination: 02/15/14 Review of Systems - Review of Systems Constitutional: See HPI, Weakness EENT: Nose congestion Cardiovascular: See HPI, Chest pain, Heart racing Respiratory: Short of breath Gastrointestinal: No symptoms reported Genitourinary: No symptoms reported Male Genitourinary: No symptoms reported Musculoskeletal: No symptoms reported Skin: See HPI, Other - Venous stasis/cellulitis Hematologic/Lymphatic: No symptoms reported Neurological/Psychological: No symptoms reported -: Yes All other systems reviewed and negative Physical Exam - Vital signs Vitals: Temp Pulse Resp BP Pulse Ox 99.8 F 103 H 22 H 148/81 H 93 06/27/18 18:07 06/27/18 18:07 06/27/18 18:07 06/27/18 18:07 06/27/18 18:07 Interpretation: Tachycardic - Notes Notes: PHYSICAL EXAMINATION: GENERAL: Patient is a well-nourished well-developed morbidly obese male who is stands approximately 5 foot 4 and weighs 422 pounds. He is in no apparent distress on physical exam tonight but has a multitude of complaints. Primary complaint is fatigue. HEAD: Atraumatic, normocephalic. EYES: Pupils equal round and reactive to light, extraocular movements intact, sclera anicteric, conjunctiva are normal. ENT: Examination head and upper airway showed nasal mucosa to be erythematous and edematous with some rhinorrhea noted. Bilateral nasal congestion is also prominent. Patient displays no frontal or sinus tenderness to palpation. Examination of bilateral TMs show them to be normal in appearance with no air- fluid levels noted. Therefore there are no retractions or bulging. Further examination of the oropharynx shows moderate amount of erythema in the posterior pharynx with somewhat enlarged tonsils bilaterally no exudate is noted on them. Moderate erythema as stated. There is drainage in the posterior pharynx. Bettina weaver's tongue is somewhat dry and coated has a foul breath as well. He has some what appeared to be Aphthous sores. I do not see signs of thrush at this time. NECK: Normal range of motion, supple without lymphadenopathy there is also no meningeal sign. Patient is moving the neck freely without any discomfort. LUNGS: Auscultation patient's lung muir show he has bilateral breath sounds that are markedly decreased throughout but are clear to auscultation. Very difficult to get a good auscultation patient's lung muir secondary to body habitus. there is no rhonchi rales or wheeze noted. HEART: Tachycardic rate and rhythm without murmurs ABDOMEN: Examination patient's abdomen shows he has bowel sounds in all 4 quads. There is no tenderness noted that is specific. He has some diffuse uncomfortable feeling with deep palpation. There is no guarding there is no referred pain. Musculoskeletal: Normal range of motion, no pitting or edema. No cyanosis. NEUROLOGICAL: Normal speech, normal gait. Normal sensory, motor exams PSYCH: Normal mood, normal affect. SKIN: Patient's left lower extremity shows signs of severe venous stasis but also possibility of an early cellulitis since he does have some areas of openings in the skin. The area is very rough and warm/hot to touch. It runs from the top of the foot all the way to below the knee. Patient actually had socks on that were digging at least in half inch into his skin because of the swelling. He has good cap refill in the nailbeds of the toes. He had good pulses. These or of course dorsalis pedal pulse and posterior tibial pulses. Course - Re-evaluation Re-evalutation: 06/28/18 02:00 After performing a Medical Screening Examination, I estimate there is LOW risk for a RETAINED CORNEAL or LID FOREIGN BODY, DEEP SPACE INFECTION (e.g., ORBITAL CELLULITIS OR ABSCESS), ACUTE GLAUCOMA, PENETRATING GLOBE INJURY, RETINAL DETACHMENT, or MENINGITIS thus I consider the discharge disposition reasonable. I have reevaluated this patient multiple times and no significant life threatening changes are noted. Also, there is no evidence or peritonitis, sepsis, or toxicity. The patient and I have discussed the diagnosis and risks, and we agree with discharging home with outpatient follow-up with the understanding that symptoms and presentations can change. We also discussed returning to the Emergency Department immediately if new or worsening symptoms occur. We have discussed the symptoms which are most concerning (e.g., changing or worsening pain, vision changes, neck stiffness or fever) that necessitate immediate return. Call intent was to send patient home tonight however he was booked in and a huge workup was ordered previous. He gave a lot of vague complaints so there is a lot of area to cover. I was concerned that with patient's history of venous stasis that is increasing shortness of breath and his tachycardia and is near tachypnea at 22 there may be a PE that has been missed previously. Patient is not very mobile he is very sedentary and sits often with his legs hanging down even here in the hospital cutting off at the back. So I feel the necessary to do at least a d-dimer to see if we had anything to go on. The d-dimer came back it 2.00 which is elevated. I contacted the CT people and they came over and attempted to get him into the CT machine which at first he did not fit. He was 1/2 inch cubic they took him back to his room came and told me informing this they came back and so they are going to try one more time. This time they wrapped him in a blanket or sheet and pulled it tight and he was able to fit into the CT machine. The CT did not show any sign of a PE even though it was somewhat limited due to body habitus. Although it did show the patient had equivocal groundglass opacities suggesting minor pneumonitis. Also there is a 7.7 mm nodule in the posterior left lung base. The then on the CT report give the Fleshner Society recommendations for single solid lung nodule follow-up based on size. Patient falls into the category of 6-8mm which is somewhat low risk of a CT at 6-[address] then [address] CT at 18-24 months. This is something that he can probably have done with his primary care provider. His primary care provider was Dr. Bear however he has moved to another area. He has the name of covering physician but does not know who that is at this time. Patient's other abnormalities showed that he had a CK of 973 his troponin was negative, his white count was just slightly elevated to 11 point something. His original pulse ox when he came in was 93% on room air sitting. I had gone and discussed the case with Dr. Rebecca Zhang she requested that I get patient up and ambulate him to see how he would do on the pulse ox. I went to the room myself read listen to his lungs which had not changed and placed the pulse oximeter on his finger and sitting there patient was 83%. I had patient stand up and take deep breaths and as high as we got was 88%. At this point I felt it necessary to do an ABG I attempted one round and a nurse attempted one we both were unsuccessful. We are waiting for respiratory to come down and perform one after they work a resuscitation on the floor. In the meantime I am going to go ahead and order him his breathing treatments and contacted the hospitalist for admission on the basis of hypoxemia. - Vital Signs Vital signs: Temp Pulse Resp BP Pulse Ox 99.8 F 103 H 22 H 148/81 H 93 06/27/18 18:07 06/27/18 18:07 06/27/18 18:07 06/27/18 18:07 06/27/18 18:07 - Laboratory Result Diagrams: 06/27/18 20:30 06/27/18 20:30 Laboratory results interpreted by me: 06/27/18 06/27/18 06/27/18 20:30 20:30 20:30 WBC 11.2 H Hgb 11.5 L Hct 34.0 L MCV 74 L MCH 25.0 L RDW 17.3 H Seg Neutrophils % 82.1 H Lymphocytes % 8.9 L Absolute Neutrophils 9.2 H D-Dimer ABG pH ABG pO2 ABG HCO3 ABG Total CO2 ABG O2 Saturation Sodium 134.2 L Chloride 95 L Carbon Dioxide 32 H Creatine Kinase 972 H NT-Pro-B Natriuret Pep 162 H Urine Protein Urine Blood 06/27/18 06/27/18 06/28/18 20:30 22:59 02:05 WBC Hgb Hct MCV MCH RDW Seg Neutrophils % Lymphocytes % Absolute Neutrophils D-Dimer 2.07 H ABG pH 7.50 H ABG pO2 56.6 L ABG HCO3 27.3 H ABG Total CO2 28.4 H ABG O2 Saturation 91.8 L Sodium Chloride Carbon Dioxide Creatine Kinase NT-Pro-B Natriuret Pep Urine Protein 100 H Urine Blood SMALL H Discharge - Discharge Clinical Impression: Hypoxemia requiring supplemental oxygen Disposition: ADMITTED INPATIENT Admitting Provider: Hospitalist Unit Admitted: Medical Floor Referrals: KAYLIE BEAR MD [NO LOCAL MD] - Follow up as needed
[2018-06-28] MEDS ORDERED: CLINDAMYCIN 900 MG/D5W RTU 900 MG/50 ML RTUPB IV ONE (02:10)
[2018-06-28 02:24] LABS: ARTERIAL BLOOD H2CO3 1.09 mmol/L (1.05-1.35); ARTERIAL BLOOD HCO3 27.3 mmol/L (20-24); ARTERIAL BLOOD O2 SATURATION 91.8 % (94-98); ARTERIAL BLOOD PCO2 36.2 mmHg (35-45); ARTERIAL BLOOD PO2 56.6 mmHg (80-100); ARTERIAL BLOOD TOTAL CO2 28.4 mmol/L (23-27)
[2018-06-28 02:26] LABS: ARTERIAL BLOOD FIO2 21%
[2018-06-28] MEDS ORDERED: ONDANSETRON 4 MG TAB.RAPDIS PO PRN (02:31)
[2018-06-28] MEDS ORDERED: ONDANSETRON HCL INJ/PF 4 MG/2 ML SDV IV PRN (02:31)
[2018-06-28] MEDS ORDERED: MAG HYDROX/AL HYDROX/SIMETH SUSP 30 ML UDCUP PO PRN (02:31)
[2018-06-28] MEDS ORDERED: MAGNESIUM HYDROXIDE SUSP 30 ML UDCUP PO PRN (02:31)
[2018-06-28] MEDS ORDERED: ACETAMINOPHEN 325 MG TABLET PO PRN (03:04)
[2018-06-28] MEDS ORDERED: ALBUTEROL SULFATE 0.083% NEB 2.5 MG/3 ML AMPUL NEB PRN (03:04)
[2018-06-28] MEDS ORDERED: METHYLPREDNISOLONE INJ 125 MG/2 ML SDV IV ONE (03:04)
[2018-06-28 04:13] LABS: CREATINE KINASE MB 2.64 ng/mL (<4.55)
[2018-06-28 04:17] LABS: TROPONIN I < 0.012 ng/mL
--- NOTE | 2018-06-28 05:25 | PDOC H&P ---
History of Present Illness Admission Date/PCP: 06/28/18 02:40 Patient complains of: dyspnea History of Present Illness: MOON ALEJO JR is a 28 year old male who presented to the emergency room with a 3-day history of progressively worsening dyspnea accompanied by progressively worsening fatigue as well as tongue/oral cavity pain, decreased appetite and neck soreness. He complains of feeling sleepy most all the time where he will sleep for an hour or so and then wake up and feel okay for short period of time to become very drowsy and go back to sleep. He denies fever over the course of this illness but he does admit to occasional chills and sweating episodes as well as occasional mild dizziness/lightheadedness with activity. He rates his dyspnea currently as moderately severe and admits that he has had numerous similar prior episodes although this is more severe than his usual problems. He has not identified any aggravating or ameliorating factors for his dyspnea. In the emergency room he was found to be hypoxic with a PA O2 in the 50s with a respiratory alkalosis suggesting hyperventilation to maintain an adequate oxygenation. Patient was therefore given supplemental oxygen and admitted the hospital for further evaluation and treatment. Past Medical History Cardiac Medical History: Denies: Coronary Artery Disease, Hypertension Pulmonary Medical History: Reports: Asthma, Pneumonia EENT Medical History: Reports: None Neurological Medical History: Denies: Hemorrhagic CVA, Ischemic CVA, Multiple Sclerosis, Seizures Endocrine Medical History: Reports: Diabetes Mellitus Type 2, Obesity Denies: Diabetes Mellitus Type 1 Renal/ Medical History: Denies: Chronic Kidney Disease, Nephrolithiasis Malignancy Medical History: Reports: None GI Medical History: Denies: Cirrhosis, Hepatitis Musculoskeltal Medical History: Reports: Arthritis Denies: Gout Skin Medical History: Denies: Eczema, Psoriasis Psychiatric Medical History: Denies: Alcohol Dependency, Substance Abuse, Tobacco Dependency Traumatic Medical History: Reports: None Hematology: Denies: Anemia, Bleeding Tendencies Infectious Medical History: Reports: None Past Surgical History Past Surgical History: Reports: Orthopedic Surgery, Other - Tracheotomy due to pneumonia and asthma attack Social History Information Source: Patient Lives with: Family Smoking Status: Never Smoker Frequency of Alcohol Use: Rare Hx Recreational Drug Use: No Drugs: None Hx Prescription Drug Abuse: No - Advance Directive Resuscitation Status: Full Code Surrogate healthcare decision maker:: Mother Family History Family History: COPD, DM, Other - Sleep apnea Parental Family History Reviewed: Yes Children Family History Reviewed: No Sibling(s) Family History Reviewed.: Yes Medication/Allergy Home Medications: Albuterol Sulfate [Ventolin Hfa] 2 puff IH Q4HP PRN 11/28/17 Fluticasone/Salmeterol [Advair 250-50 Diskus 28 dose] 1 puff IH Q12 11/28/17 Pantoprazole Sodium [Protonix] 40 mg PO DAILY 11/28/17 Clindamycin HCl 600 mg PO Q8H #21 capsule 12/01/17 Levofloxacin [Levaquin 750 mg Tablet] 750 mg PO DAILY #7 tab 12/01/17 Allergies/Adverse Reactions: No Known Allergies Allergy (Verified 06/27/18 18:09) Review of Systems Constitutional: PRESENT: as per HPI, chills, fatigue. ABSENT: fever(s) Eyes: ABSENT: visual disturbances, other - Ocular pain Ears: ABSENT: hearing changes, other - Ear pain Nose, Mouth, and Throat: PRESENT: as per HPI, mouth pain, sore throat Cardiovascular: PRESENT: as per HPI, dyspnea on exertion, orthropnea. ABSENT: chest pain, edema, palpitations Respiratory: PRESENT: as per HPI, cough, dyspnea Gastrointestinal: PRESENT: other. ABSENT: abdominal pain, constipation, diarrhea, nausea - Decreased appetite, vomiting Genitourinary: ABSENT: dysuria, hematuria Musculoskeletal: ABSENT: deformity, joint swelling Integumentary: ABSENT: pruritus, rash Neurological: PRESENT: as per HPI, dizziness - Orthostatic dizziness/lightheadedness intermittently.. ABSENT: confusion, convulsions, memory loss Psychiatric: ABSENT: anxiety, depression Endocrine: ABSENT: cold intolerance, heat intolerance Hematologic/Lymphatic: ABSENT: easy bleeding, easy bruising Physical Exam Vital Signs: Temp Pulse Resp BP Pulse Ox 99.8 F 103 H 22 H 148/81 H 93 06/27/18 18:07 06/27/18 18:07 06/27/18 18:07 06/27/18 18:07 06/27/18 18:07 Intake & Output 06/26/18 06/27/18 06/28/18 23:59 23:59 23:59 Weight 200.5 kg General appearance: PRESENT: no acute distress, cooperative, morbidly obese Head exam: PRESENT: atraumatic, normocephalic Eye exam: PRESENT: conjunctiva pink, EOMI. ABSENT: scleral icterus Ear exam: PRESENT: normal external ear exam. ABSENT: bleeding, drainage Mouth exam: PRESENT: dry mucosa, neck supple, other - Minimal erythema of mucosal surfaces noted no obvious lesions present Neck exam: ABSENT: JVD, thyromegaly, tracheal deviation Respiratory exam: PRESENT: decreased breath sounds - Moderately diminished breath sounds throughout all muir with minimal to poor air movement noted., prolonged expiratory phas - Moderately prolonged expiratory phase throughout all muir, symmetrical, tachypnea, wheezes - Minimal end expiratory wheezes (very tight wheezes) in all muir. ABSENT: accessory muscle use, retraction Cardiovascular exam: PRESENT: RRR, other. ABSENT: clicks, gallop, rubs Pulses: PRESENT: normal radial pulses, normal dorsalis pedis pul Vascular exam: PRESENT: normal capillary refill, other - Venous stasis changes of the bilateral lower extremities left is significantly worse than the right. ABSENT: pallor GI/Abdominal exam: PRESENT: normal bowel sounds, soft Rectal exam: PRESENT: deferred Extremities exam: PRESENT: other - Venous stasis changes in the bilateral lower extremities noted left is more significantly involving the right, no acute infectious process is readily apparent's time.. ABSENT: joint swelling, pedal edema Musculoskeletal exam: ABSENT: deformity, dislocation Neurological exam: PRESENT: alert, oriented to person, oriented to place, oriented to time, oriented to situation, CN II-XII grossly intact. ABSENT: motor sensory deficit Psychiatric exam: PRESENT: appropriate affect, normal mood Skin exam: PRESENT: dry, intact, warm. ABSENT: jaundice, rash, urticaria Results Laboratory Results: 06/27/18 20:30 06/27/18 20:30 06/27/18 06/27/18 06/27/18 20:30 20:30 22:59 WBC 11.2 H RBC 4.59 Hgb 11.5 L Hct 34.0 L MCV 74 L MCH 25.0 L MCHC 33.7 RDW 17.3 H Plt Count 281 Seg Neutrophils % 82.1 H Lymphocytes % 8.9 L Monocytes % 8.7 Eosinophils % 0.0 Basophils % 0.3 Absolute Neutrophils 9.2 H Absolute Lymphocytes 1.0 Absolute Monocytes 1.0 Absolute Eosinophils 0.0 Absolute Basophils 0.0 Carbonic Acid HCO3/H2CO3 Ratio ABG pH ABG pCO2 ABG pO2 ABG HCO3 ABG O2 Saturation ABG Base Excess FiO2 Sodium 134.2 L Potassium 4.0 Chloride 95 L Carbon Dioxide 32 H Anion Gap 7 BUN 13 Creatinine 0.69 Est GFR ( Amer) > 60 Est GFR (Non-Af Amer) > 60 Glucose 107 Calcium 8.7 Total Bilirubin 0.8 AST 56 ALT 41 Alkaline Phosphatase 85 Total Protein 7.5 Albumin 3.6 Urine Color YELLOW Urine Appearance SLIGHTLY-CLOUDY Urine pH 5.0 Ur Specific [place] 1.027 Urine Protein 100 H Urine Glucose (UA) NEGATIVE Urine Ketones NEGATIVE Urine Blood SMALL H Urine Nitrite NEGATIVE Ur Leukocyte Esterase NEGATIVE Urine WBC (Auto) 3 Urine RBC (Auto) 1 06/28/18 02:05 WBC RBC Hgb Hct MCV MCH MCHC RDW Plt Count Seg Neutrophils % Lymphocytes % Monocytes % Eosinophils % Basophils % Absolute Neutrophils Absolute Lymphocytes Absolute Monocytes Absolute Eosinophils Absolute Basophils Carbonic Acid 1.09 HCO3/H2CO3 Ratio 25:1 ABG pH 7.50 H ABG pCO2 36.2 ABG pO2 56.6 L ABG HCO3 27.3 H ABG O2 Saturation 91.8 L ABG Base Excess 4.0 FiO2 21% Sodium Potassium Chloride Carbon Dioxide Anion Gap BUN Creatinine Est GFR ( Amer) Est GFR (Non-Af Amer) Glucose Calcium Total Bilirubin AST ALT Alkaline Phosphatase Total Protein Albumin Urine Color Urine Appearance Urine pH Ur Specific [place] Urine Protein Urine Glucose (UA) Urine Ketones Urine Blood Urine Nitrite Ur Leukocyte Esterase Urine WBC (Auto) Urine RBC (Auto) 06/27/18 06/27/18 20:30 20:30 Creatine Kinase 972 H CK-MB (CK-2) 3.63 Troponin I < 0.012 NT-Pro-B Natriuret Pep 162 H Impressions: Chest X-Ray 06/27/18 19:31 IMPRESSION: Diffuse bilateral interstitial pulmonary opacity, likely mild pulmonary edema in the setting of cardiomegaly. There is no focal airspace opacity. Chest/Abdomen CTA 06/27/18 21:14 IMPRESSION: Limited study however no central pulmonary embolus. Negative for thoracic aortic aneurysm, or dissection. Equivocal groundglass opacities suggesting minor pneumonitis. 7.7 mm nodule in the posterior left lung base. 2017 Fleischner Society Recommendations for Single Solid Lung Nodule Follow-Up based on size (average of long- and short-axis diameters) <6 mm Low-Risk Patient: No routine follow-up <6 mm High-Risk Patient: Optional CT at 12 months 6-8 mm Low-Risk Patient: CT at 6-[address] at 18-24 months 6-8 mm High-Risk Patient: CT at 6-[address] at 18-24 months >8 mm Low-Risk Patient: Consider CT, PET/CT or tissue sampling at 3 months >8 mm High-Risk Patient: Same as for low-risk patient TECHNICAL DOCUMENTATION: Quality ID # [id number]: Final reports with documentation of one or more dose reduction techniques (e.g., Automated exposure control, adjustment of the mA and/or kV according to patient size, use of iterative reconstruction technique) copyright 2011 [employer]- All Rights Reserved Assessment & Plan - Diagnosis (1) Acute respiratory failure with hypoxia Is this a current diagnosis for this admission?: Yes Plan: Patient has a history of asthma. ABGs were obtained and show an alkalotic pH with hypoxia consistent with hyperventilation in an effort to raise arterial oxygenation. Patient will be treated as acute asthma with an aggressive pulmonary toilet utilizing Xopenex, Atrovent, Pulmicort and albuterol. Patient will also receive IV Solu-Medrol. Consultation with Dr. Barron is made. (2) Acute oral pain Is this a current diagnosis for this admission?: Yes Plan: Patient will receive as needed Tylenol for lesser oral pain if it is persistent he will be treated with intravenous morphine sulfate on a sliding scale basis for control of his pain. (3) Morbid obesity with BMI of 70 and over, adult Is this a current diagnosis for this admission?: Yes Plan: A dietary consult will be obtained to aid in assisting the patient in weight reduction. (4) Venous stasis Is this a current diagnosis for this admission?: Yes Plan: Patient has chronic venous stasis. Patient's venous stasis will be observed during his hospital course to evaluate for any adverse changes or possible areas of significant infection. - Time Time Spent: 30 to 50 Minutes Critical Time spent with patient: Less than 15 minutes Medications reviewed and adjusted accordingly: Yes Anticipated discharge: Home - Inpatient Certification Based on my medical assessment, after consideration of the patient's comorbidities, presenting symptoms, or acuity I expect that the services needed warrant INPATIENT care.: Yes I certify that my determination is in accordance with my understanding of Medicare's requirements for reasonable and necessary INPATIENT services [42 CFR 412.3e].: Yes Medical Necessity: Significant Comorbidiites Make Outpatient Treatment Too Risky, Need Close Monitoring Due to Risk of Patient Decompensation, Need For Continuous Telemetry Monitoring, Need for Nebulizer Therapy and Monitoring of Response, Risk of Complication if Not Cared For in Hospital
[2018-06-28] MEDS: METHYLPREDNISOLONE INJ 40 MG/1 ML SDV IV SCH ×3 (06:00→17:05)
[2018-06-28] MEDS: HEPARIN SOD (PORCINE) 5,000 UNIT/ML 1 ML SYRINGE SUBCUT SCH ×3 (06:01→22:22)
[2018-06-28 07:16] LABS: URINE AMPHETAMINES SCREEN NEGATIVE; URINE BARBITURATES SCREEN NEGATIVE; URINE BENZODIAZEPINES SCREEN NEGATIVE; URINE COCAINE SCREEN NEGATIVE; URINE MARIJUANA (THC) SCREEN NEGATIVE; URINE METHADONE SCREEN NEGATIVE; URINE PHENCYCLIDINE SCREEN NEGATIVE
[2018-06-28] MEDS: IPRATROPIUM BROMIDE 0.02% NEB 0.5 MG/2.5 ML AMPUL NEB SCH ×3 (08:40→23:48)
[2018-06-28] MEDS: LEVALBUTEROL HCL NEB 1.25 MG/3 ML AMPUL NEB SCH ×3 (08:40→23:48)
[2018-06-28] MEDS: BUDESONIDE NEB 0.5 MG/2 ML AMPUL NEB SCH ×2 (08:40→20:09)
[2018-06-28] MEDS: METOCLOPRAMIDE HCL 10 MG TABLET PO SCH ×4 (09:28→22:26)
[2018-06-28] MEDS: SUCRALFATE SUSP 1 GM/10 ML UDCUP PO SCH ×4 (09:28→22:23)
[2018-06-28] MEDS: DOCUSATE SODIUM 100 MG CAPSULE PO SCH ×2 (09:28→17:02)
[2018-06-28] MEDS: FAMOTIDINE 20 MG TABLET PO SCH ×6 (09:28→22:22)
[2018-06-28 09:54] LABS: CREATINE KINASE MB 2.87 ng/mL (<4.55)
[2018-06-28 10:02] LABS: TROPONIN I < 0.012 ng/mL
--- NOTE | 2018-06-28 12:22 | PDOC PROGRESS REPORT ---
Subjective Progress Note for:: 06/28/18 Subjective:: Patient feels that breathing already significantly improved. He still requiring 4 L of oxygen NC though for adequate oxygenation. Still with intermittent cough, but dry. Denies chest pain or palpitations, no fever or chills, denies diarrhea, no nausea or vomiting. Reason For Visit: ACUTE RESPIRATORY FAILURE WITH HYPOXIA Physical Exam Vital Signs: Temp Pulse Resp BP Pulse Ox 98.4 F 86 20 150/75 H 99 06/28/18 08:00 06/28/18 08:00 06/28/18 08:00 06/28/18 08:00 06/28/18 08:00 Intake & Output 06/27/18 06/28/18 06/29/18 06:59 06:59 06:59 Intake Total 350 Balance 350 Weight 200.3 kg GEN: NAD, well-developed, well-nourished CV: RRR, NL S1S2 LUNGS: Occasional wheezing bilaterally ABDOMEN Soft, NT, +BS EXTERMITIES: No e/c/c, chronic changes NEURO: Alert, oriented x3, nonfocal Results Laboratory Results: 06/27/18 20:30 06/27/18 20:30 06/27/18 06/27/18 06/27/18 20:30 20:30 22:59 WBC 11.2 H RBC 4.59 Hgb 11.5 L Hct 34.0 L MCV 74 L MCH 25.0 L MCHC 33.7 RDW 17.3 H Plt Count 281 Seg Neutrophils % 82.1 H Lymphocytes % 8.9 L Monocytes % 8.7 Eosinophils % 0.0 Basophils % 0.3 Absolute Neutrophils 9.2 H Absolute Lymphocytes 1.0 Absolute Monocytes 1.0 Absolute Eosinophils 0.0 Absolute Basophils 0.0 Carbonic Acid HCO3/H2CO3 Ratio ABG pH ABG pCO2 ABG pO2 ABG HCO3 ABG O2 Saturation ABG Base Excess FiO2 Sodium 134.2 L Potassium 4.0 Chloride 95 L Carbon Dioxide 32 H Anion Gap 7 BUN 13 Creatinine 0.69 Est GFR ( Amer) > 60 Est GFR (Non-Af Amer) > 60 Glucose 107 Calcium 8.7 Total Bilirubin 0.8 AST 56 ALT 41 Alkaline Phosphatase 85 Total Protein 7.5 Albumin 3.6 Urine Color YELLOW Urine Appearance SLIGHTLY-CLOUDY Urine pH 5.0 Ur Specific [place] 1.027 Urine Protein 100 H Urine Glucose (UA) NEGATIVE Urine Ketones NEGATIVE Urine Blood SMALL H Urine Nitrite NEGATIVE Ur Leukocyte Esterase NEGATIVE Urine WBC (Auto) 3 Urine RBC (Auto) 1 06/28/18 02:05 WBC RBC Hgb Hct MCV MCH MCHC RDW Plt Count Seg Neutrophils % Lymphocytes % Monocytes % Eosinophils % Basophils % Absolute Neutrophils Absolute Lymphocytes Absolute Monocytes Absolute Eosinophils Absolute Basophils Carbonic Acid 1.09 HCO3/H2CO3 Ratio 25:1 ABG pH 7.50 H ABG pCO2 36.2 ABG pO2 56.6 L ABG HCO3 27.3 H ABG O2 Saturation 91.8 L ABG Base Excess 4.0 FiO2 21% Sodium Potassium Chloride Carbon Dioxide Anion Gap BUN Creatinine Est GFR ( Amer) Est GFR (Non-Af Amer) Glucose Calcium Total Bilirubin AST ALT Alkaline Phosphatase Total Protein Albumin Urine Color Urine Appearance Urine pH Ur Specific [place] Urine Protein Urine Glucose (UA) Urine Ketones Urine Blood Urine Nitrite Ur Leukocyte Esterase Urine WBC (Auto) Urine RBC (Auto) 06/27/18 06/27/18 06/28/18 20:30 20:30 03:38 Creatine Kinase 972 H 834 H CK-MB (CK-2) 3.63 Troponin I < 0.012 NT-Pro-B Natriuret Pep 162 H 06/28/18 03:38 Creatine Kinase CK-MB (CK-2) 2.64 Troponin I < 0.012 NT-Pro-B Natriuret Pep Impressions: Chest X-Ray 06/27/18 19:31 IMPRESSION: Diffuse bilateral interstitial pulmonary opacity, likely mild pulmonary edema in the setting of cardiomegaly. There is no focal airspace opacity. Chest/Abdomen CTA 06/27/18 21:14 IMPRESSION: Limited study however no central pulmonary embolus. Negative for thoracic aortic aneurysm, or dissection. Equivocal groundglass opacities suggesting minor pneumonitis. 7.7 mm nodule in the posterior left lung base. 2017 Fleischner Society Recommendations for Single Solid Lung Nodule Follow-Up based on size (average of long- and short-axis diameters) <6 mm Low-Risk Patient: No routine follow-up <6 mm High-Risk Patient: Optional CT at 12 months 6-8 mm Low-Risk Patient: CT at 6-[address] at 18-24 months 6-8 mm High-Risk Patient: CT at 6-[address] at 18-24 months >8 mm Low-Risk Patient: Consider CT, PET/CT or tissue sampling at 3 months >8 mm High-Risk Patient: Same as for low-risk patient TECHNICAL DOCUMENTATION: Quality ID # [id number]: Final reports with documentation of one or more dose reduction techniques (e.g., Automated exposure control, adjustment of the mA and/or kV according to patient size, use of iterative reconstruction technique) copyright 2011 [employer]- All Rights Reserved Assessment & Plan - Diagnosis (1) Acute respiratory failure with hypoxia Is this a current diagnosis for this admission?: Yes (2) Asthma Qualifiers: Asthma severity: unspecified severity Asthma persistence: intermittent Asthma complication type: uncomplicated Qualified Code(s): J45.20 - Mild intermittent asthma, uncomplicated Is this a current diagnosis for this admission?: Yes (4) Morbid obesity with BMI of 70 and over, adult Is this a current diagnosis for this admission?: Yes (5) Venous stasis Is this a current diagnosis for this admission?: Yes (6) Acute oral pain Is this a current diagnosis for this admission?: Yes - Plan Summary Plan Summary: Patient improving. He was just admitted overnight therapy hours ago. Will continue steroids for now, O2, nebulizers. Will continue to monitor closely. CT of the chest revealed 7.7 mm nodule in the posterior left lung base. Informed/educated will need repeat f/u chest CT in 12 months.
--- NOTE | 2018-06-28 12:58 | EKG REPORT ---
SEVERITY:- BORDERLINE ECG - SINUS TACHYCARDIA BORDERLINE PROLONGED QT INTERVAL : Confirmed by: Radha Carson 28-Jun-2018 12:58:04
[2018-06-28 17:30] LABS: CREATINE KINASE MB 3.91 ng/mL (<4.55)
[2018-06-28 17:31] LABS: TROPONIN I < 0.012 ng/mL
[2018-06-28] MEDS ORDERED: CEFTRIAXONE 1 GM/D5W RTU 1 GM/50 ML RTUPB IV ONE ×2 (23:00→23:46)
[2018-06-28] MEDS ORDERED: DOXYCYCLINE HYCLATE INJ 100 MG VIAL IV ONE (23:30)
[2018-06-28] MEDS ORDERED: DOXYCYCLINE HYCLATE INJ 100 MG VIAL ONE (23:46)
[2018-06-29] MEDS: HEPARIN SOD (PORCINE) 5,000 UNIT/ML 1 ML SYRINGE SUBCUT SCH ×3 (06:06→22:11)
[2018-06-29 06:46] LABS: ABSOLUTE LYMPHOCYTES (AUTO) 1.5 10^3/uL (0.5-4.7); ABSOLUTE MONOCYTES (AUTO) 1.3 10^3/uL (0.1-1.4); BASOPHILS % (AUTO) 0.1 % (0-2); EOSINOPHILS % (AUTO) 0.1 % (0-6); HEMATOCRIT 32.8 % (37.9-51.0); HEMOGLOBIN 10.8 g/dL (13.5-17.0); LYMPHOCYTES % (AUTO) 12.1 % (13-45); MEAN CORPUSCULAR HEMOGLOBIN 24.5 pg (27.0-33.4); MEAN CORPUSCULAR VOLUME 74 fl (80-97); PLATELET COUNT 317 10^3/uL (150-450); RED BLOOD COUNT 4.41 10^6/uL (4.35-5.55); RED CELL DISTRIBUTION WIDTH 17.5 % (11.5-14.0); SEGMENTED NEUTROPHILS % (AUTO) 77.7 % (42-78); TOTAL CELLS COUNTED % (AUTO) 100 %; WHITE BLOOD COUNT 12.8 10^3/uL (4.0-10.5)
[2018-06-29 07:04] LABS: ALANINE AMINOTRANSFERASE 53 U/L (21-72); ALBUMIN 3.7 g/dL (3.5-5.0); ALKALINE PHOSPHATASE 83 U/L (38-126); ANION GAP 13 (5-19); ASPARTATE AMINO TRANSFERASE 45 U/L (17-59); BILIRUBIN,DIRECT 0.3 mg/dL (0.0-0.4); BILIRUBIN,TOTAL 0.5 mg/dL (0.2-1.3); BLOOD UREA NITROGEN 24 mg/dL (7-20); CALCIUM 9.3 mg/dL (8.4-10.2); CARBON DIOXIDE 28 mmol/L (22-30); CHLORIDE 100 mmol/L (98-107); CHOLESTEROL 192.34 mg/dL (0-200); GLUCOSE 154 mg/dL (75-110); POTASSIUM 3.9 mmol/L (3.6-5.0); SODIUM 140.8 mmol/L (137-145); TOTAL PROTEIN 7.7 g/dL (6.3-8.2); TRIGLYCERIDES 269 mg/dL (<150)
[2018-06-29 07:15] LABS: DIRECT LDL 99 mg/dL (<100)
[2018-06-29 07:20] LABS: VLDL CHOLESTEROL 53.8 mg/dL (10-31)
[2018-06-29 07:21] LABS: FREE T3 2.15 pg/mL (2.77-5.27); FREE T4 (FREE THYROXINE) 1.14 ng/dL (0.78-2.19)
[2018-06-29 07:35] LABS: THYROID STIMULATING HORMONE 2.35 uIU/mL (0.47-4.68)
[2018-06-29] MEDS: METOCLOPRAMIDE HCL 10 MG TABLET PO SCH ×4 (08:30→22:11)
[2018-06-29] MEDS: SUCRALFATE SUSP 1 GM/10 ML UDCUP PO SCH ×4 (08:30→22:13)
[2018-06-29] MEDS: FAMOTIDINE 20 MG TABLET PO SCH ×6 (08:30→22:12)
[2018-06-29] MEDS: LEVALBUTEROL HCL NEB 1.25 MG/3 ML AMPUL NEB SCH (08:33)
[2018-06-29] MEDS: IPRATROPIUM BROMIDE 0.02% NEB 0.5 MG/2.5 ML AMPUL NEB SCH (08:33)
[2018-06-29] MEDS: BUDESONIDE NEB 0.5 MG/2 ML AMPUL NEB SCH ×2 (08:33→20:15)
[2018-06-29] MEDS ORDERED: DOXYCYCLINE HYCLATE INJ 100 MG VIAL IV SCH (10:00)
--- NOTE | 2018-06-29 10:21 | PDOC PROGRESS REPORT ---
Subjective Progress Note for:: 06/29/18 Subjective:: Breathing has significantly improved. Still with intermittent dry cough. Denies chest pain or palpitations, no fever or chills, denies diarrhea, no nausea or vomiting. No pain lower extremities. Swelling or redness noted closely. Reason For Visit: ACUTE RESPIRATORY FAILURE WITH HYPOXIA Physical Exam Vital Signs: Temp Pulse Resp BP Pulse Ox 97.8 F 60 19 111/72 99 06/29/18 08:00 06/29/18 08:00 06/29/18 08:00 06/29/18 08:00 06/29/18 08:00 Intake & Output 06/28/18 06/29/18 06/30/18 06:59 06:59 06:59 Intake Total 350 2080 Balance 350 2080 Weight 200.3 kg 199.5 kg GEN: NAD, well-developed, morbidly obese, well-nourished CV: RRR, NL S1S2 LUNGS: Occasional wheezing bilaterally ABDOMEN Soft, NT, +BS EXTERMITIES: No e/c/c, chronic changes NEURO: Alert, oriented x3, nonfocal Results Laboratory Results: 06/29/18 06:20 06/29/18 06:20 06/29/18 06/29/18 06/29/18 06:20 06:20 06:20 WBC 12.8 H RBC 4.41 Hgb 10.8 L Hct 32.8 L MCV 74 L MCH 24.5 L MCHC 33.0 RDW 17.5 H Plt Count 317 Seg Neutrophils % 77.7 Lymphocytes % 12.1 L Monocytes % 10.0 Eosinophils % 0.1 Basophils % 0.1 Absolute Neutrophils 10.0 H Absolute Lymphocytes 1.5 Absolute Monocytes 1.3 Absolute Eosinophils 0.0 Absolute Basophils 0.0 Sodium 140.8 Potassium 3.9 Chloride 100 Carbon Dioxide 28 Anion Gap 13 BUN 24 H Creatinine 0.67 Est GFR ( Amer) > 60 Est GFR (Non-Af Amer) > 60 Glucose 154 H Calcium 9.3 Magnesium 2.8 H Total Bilirubin 0.5 AST 45 ALT 53 Alkaline Phosphatase 83 Total Protein 7.7 Albumin 3.7 Triglycerides 269 H Cholesterol 192.34 LDL Cholesterol Direct 99 VLDL Cholesterol 53.8 H HDL Cholesterol 10 L TSH 2.35 Free T4 1.14 Free T3 pg/mL 2.15 L 06/27/18 06/27/18 06/28/18 20:30 20:30 03:38 Creatine Kinase 972 H 834 H CK-MB (CK-2) 3.63 Troponin I < 0.012 NT-Pro-B Natriuret Pep 162 H 06/28/18 06/28/18 06/28/18 03:38 09:11 09:11 Creatine Kinase 730 H CK-MB (CK-2) 2.64 2.87 Troponin I < 0.012 < 0.012 NT-Pro-B Natriuret Pep 06/28/18 06/28/18 06/29/18 15:18 15:18 06:20 Creatine Kinase 585 H CK-MB (CK-2) 3.91 Troponin I < 0.012 NT-Pro-B Natriuret Pep 99 Impressions: Chest X-Ray 06/27/18 19:31 IMPRESSION: Diffuse bilateral interstitial pulmonary opacity, likely mild pulmonary edema in the setting of cardiomegaly. There is no focal airspace opacity. Chest/Abdomen CTA 06/27/18 21:14 IMPRESSION: Limited study however no central pulmonary embolus. Negative for thoracic aortic aneurysm, or dissection. Equivocal groundglass opacities suggesting minor pneumonitis. 7.7 mm nodule in the posterior left lung base. 2017 Fleischner Society Recommendations for Single Solid Lung Nodule Follow-Up based on size (average of long- and short-axis diameters) <6 mm Low-Risk Patient: No routine follow-up <6 mm High-Risk Patient: Optional CT at 12 months 6-8 mm Low-Risk Patient: CT at 6-[address] at 18-24 months 6-8 mm High-Risk Patient: CT at 6-[address] at 18-24 months >8 mm Low-Risk Patient: Consider CT, PET/CT or tissue sampling at 3 months >8 mm High-Risk Patient: Same as for low-risk patient TECHNICAL DOCUMENTATION: Quality ID # [id number]: Final reports with documentation of one or more dose reduction techniques (e.g., Automated exposure control, adjustment of the mA and/or kV according to patient size, use of iterative reconstruction technique) copyright 2011 [employer]- All Rights Reserved Assessment & Plan - Diagnosis (1) Acute respiratory failure with hypoxia Is this a current diagnosis for this admission?: Yes (2) Asthma Qualifiers: Asthma severity: unspecified severity Asthma persistence: intermittent Asthma complication type: uncomplicated Qualified Code(s): J45.20 - Mild intermittent asthma, uncomplicated Is this a current diagnosis for this admission?: Yes (4) Morbid obesity with BMI of 70 and over, adult Is this a current diagnosis for this admission?: Yes (5) Venous stasis Is this a current diagnosis for this admission?: Yes (6) Acute oral pain Is this a current diagnosis for this admission?: Yes (7) Bacteremia due to Gram-positive bacteria Is this a current diagnosis for this admission?: Yes - Plan Summary Plan Summary: Patient improving. He is with possible bacteremia, as blood culture growing gram-positive cocci in clusters, although this may very well be a contaminant. He has been started on antibiotics with Rocephin and doxycycline, will continue for now. Follow-up cultures sensitivities. For acute respiratory failure/asthma, will continue steroids for now, O2, nebulizers. Will continue to monitor closely. CT of the chest revealed 7.7 mm nodule in the posterior left lung base. I had informed/educated patient that he will need repeat f/u chest CT in 12 months.
--- NOTE | 2018-06-29 10:22 | PDOC PROGRESS REPORT ---
Subjective Reason For Visit: ACUTE RESPIRATORY FAILURE WITH HYPOXIA Physical Exam Vital Signs: Temp Pulse Resp BP Pulse Ox 97.8 F 60 19 111/72 99 06/29/18 08:00 06/29/18 08:00 06/29/18 08:00 06/29/18 08:00 06/29/18 08:00 Intake & Output 06/28/18 06/29/18 06/30/18 06:59 06:59 06:59 Intake Total 350 2080 Balance 350 2080 Weight 200.3 kg 199.5 kg Results Laboratory Results: 06/29/18 06:20 06/29/18 06:20 06/29/18 06/29/18 06/29/18 06:20 06:20 06:20 WBC 12.8 H RBC 4.41 Hgb 10.8 L Hct 32.8 L MCV 74 L MCH 24.5 L MCHC 33.0 RDW 17.5 H Plt Count 317 Seg Neutrophils % 77.7 Lymphocytes % 12.1 L Monocytes % 10.0 Eosinophils % 0.1 Basophils % 0.1 Absolute Neutrophils 10.0 H Absolute Lymphocytes 1.5 Absolute Monocytes 1.3 Absolute Eosinophils 0.0 Absolute Basophils 0.0 Sodium 140.8 Potassium 3.9 Chloride 100 Carbon Dioxide 28 Anion Gap 13 BUN 24 H Creatinine 0.67 Est GFR ( Amer) > 60 Est GFR (Non-Af Amer) > 60 Glucose 154 H Calcium 9.3 Magnesium 2.8 H Total Bilirubin 0.5 AST 45 ALT 53 Alkaline Phosphatase 83 Total Protein 7.7 Albumin 3.7 Triglycerides 269 H Cholesterol 192.34 LDL Cholesterol Direct 99 VLDL Cholesterol 53.8 H HDL Cholesterol 10 L TSH 2.35 Free T4 1.14 Free T3 pg/mL 2.15 L 06/27/18 06/27/18 06/28/18 20:30 20:30 03:38 Creatine Kinase 972 H 834 H CK-MB (CK-2) 3.63 Troponin I < 0.012 NT-Pro-B Natriuret Pep 162 H 06/28/18 06/28/18 06/28/18 03:38 09:11 09:11 Creatine Kinase 730 H CK-MB (CK-2) 2.64 2.87 Troponin I < 0.012 < 0.012 NT-Pro-B Natriuret Pep 06/28/18 06/28/18 06/29/18 15:18 15:18 06:20 Creatine Kinase 585 H CK-MB (CK-2) 3.91 Troponin I < 0.012 NT-Pro-B Natriuret Pep 99 Impressions: Chest X-Ray 06/27/18 19:31 IMPRESSION: Diffuse bilateral interstitial pulmonary opacity, likely mild pulmonary edema in the setting of cardiomegaly. There is no focal airspace opacity. Chest/Abdomen CTA 06/27/18 21:14 IMPRESSION: Limited study however no central pulmonary embolus. Negative for thoracic aortic aneurysm, or dissection. Equivocal groundglass opacities suggesting minor pneumonitis. 7.7 mm nodule in the posterior left lung base. 2017 Fleischner Society Recommendations for Single Solid Lung Nodule Follow-Up based on size (average of long- and short-axis diameters) <6 mm Low-Risk Patient: No routine follow-up <6 mm High-Risk Patient: Optional CT at 12 months 6-8 mm Low-Risk Patient: CT at 6-[address] at 18-24 months 6-8 mm High-Risk Patient: CT at 6-[address] at 18-24 months >8 mm Low-Risk Patient: Consider CT, PET/CT or tissue sampling at 3 months >8 mm High-Risk Patient: Same as for low-risk patient TECHNICAL DOCUMENTATION: Quality ID # [id number]: Final reports with documentation of one or more dose reduction techniques (e.g., Automated exposure control, adjustment of the mA and/or kV according to patient size, use of iterative reconstruction technique) copyright 2011 [employer]- All Rights Reserved Assessment & Plan - Diagnosis (1) Acute respiratory failure with hypoxia Is this a current diagnosis for this admission?: Yes (2) Asthma Qualifiers: Asthma severity: unspecified severity Asthma persistence: intermittent Asthma complication type: uncomplicated Qualified Code(s): J45.20 - Mild intermittent asthma, uncomplicated Is this a current diagnosis for this admission?: Yes (3) Incidental lung nodule, > 3mm and < 8mm Is this a current diagnosis for this admission?: Yes (4) Morbid obesity with BMI of 70 and over, adult Is this a current diagnosis for this admission?: Yes (5) Venous stasis Is this a current diagnosis for this admission?: Yes (6) Acute oral pain Is this a current diagnosis for this admission?: Yes (7) Bacteremia due to Gram-positive bacteria Is this a current diagnosis for this admission?: Yes
[2018-06-29] MEDS: DOXYCYCLINE HYCLATE 100 MG in DEXTROSE 5%-WATER 250 ML IV SCH ×2 (10:37→22:13)
[2018-06-29] MEDS: DOCUSATE SODIUM 100 MG CAPSULE PO SCH ×2 (10:41→17:08)
[2018-06-29] MEDS: IPRATROPIUM/ALBUTEROL 0.5-2.5 MG/3 ML AMPUL NEB SCH ×2 (14:15→20:15)
[2018-06-29] MEDS ORDERED: CEFTRIAXONE 1 GM/D5W RTU 1 GM/50 ML RTUPB IV SCH (22:00)
[2018-06-29] MEDS: CEFTRIAXONE SODIUM 1,000 MG in DEXTROSE 5%-WATER 50 ML IV SCH (22:12)
[2018-06-30] MEDS: HEPARIN SOD (PORCINE) 5,000 UNIT/ML 1 ML SYRINGE SUBCUT SCH ×3 (06:16→23:35)
[2018-06-30] MEDS: SUCRALFATE SUSP 1 GM/10 ML UDCUP PO SCH (08:03)
[2018-06-30] MEDS: METOCLOPRAMIDE HCL 10 MG TABLET PO SCH (08:03)
[2018-06-30] MEDS: FAMOTIDINE 20 MG TABLET PO SCH ×3 (08:04→23:35)
[2018-06-30] MEDS: BUDESONIDE NEB 0.5 MG/2 ML AMPUL NEB SCH ×2 (08:32→20:27)
[2018-06-30] MEDS: IPRATROPIUM/ALBUTEROL 0.5-2.5 MG/3 ML AMPUL NEB SCH ×3 (08:32→20:27)
[2018-06-30] MEDS: DOXYCYCLINE HYCLATE 100 MG in DEXTROSE 5%-WATER 250 ML IV SCH (10:03)
[2018-06-30] MEDS: DOCUSATE SODIUM 100 MG CAPSULE PO SCH ×2 (10:04→18:25)
[2018-06-30] MEDS ORDERED: ONDANSETRON HCL INJ/PF 4 MG/2 ML SDV IV PRN (11:00)
[2018-06-30] MEDS ORDERED: ONDANSETRON 4 MG TAB.RAPDIS PO PRN (11:00)
--- NOTE | 2018-06-30 17:40 | PDOC PROGRESS REPORT ---
Subjective Progress Note for:: 06/30/18 Subjective:: Breathing much better. Still with intermittent dry cough, but improved. Denies chest pain or palpitations, no fever or chills, denies diarrhea, no nausea or vomiting. Sore throat much better. No pain lower extremities. Swelling/redness lower extremities is chronic. Reason For Visit: ACUTE RESPIRATORY FAILURE WITH HYPOXIA Physical Exam Vital Signs: Temp Pulse Resp BP Pulse Ox 98.0 F 74 17 130/66 H 99 06/30/18 12:01 06/30/18 12:01 06/30/18 12:01 06/30/18 12:01 06/30/18 12:01 Intake & Output 06/29/18 06/30/18 07/01/18 06:59 06:59 06:59 Intake Total 2079 2181 Balance 2079 2181 Weight 199.5 kg 200.1 kg GEN: NAD, well-developed, morbidly obese, well-nourished CV: RRR, NL S1S2 LUNGS: Occasional wheezing bilaterally, good air movement ABDOMEN Soft, NT, +BS EXTERMITIES: No e/c/c, chronic changes NEURO: Alert, oriented x3, nonfocal Results Laboratory Results: 06/29/18 06:20 06/29/18 06:20 06/27/18 20:42 Throat Throat Culture - Final Group G Beta Streptococcus 06/27/18 06/27/18 06/28/18 20:30 20:30 03:38 Creatine Kinase 972 H 834 H CK-MB (CK-2) 3.63 Troponin I < 0.012 NT-Pro-B Natriuret Pep 162 H 06/28/18 06/28/18 06/28/18 03:38 09:11 09:11 Creatine Kinase 730 H CK-MB (CK-2) 2.64 2.87 Troponin I < 0.012 < 0.012 NT-Pro-B Natriuret Pep 06/28/18 06/28/18 06/29/18 15:18 15:18 06:20 Creatine Kinase 585 H CK-MB (CK-2) 3.91 Troponin I < 0.012 NT-Pro-B Natriuret Pep 99 Impressions: Chest X-Ray 06/27/18 19:31 IMPRESSION: Diffuse bilateral interstitial pulmonary opacity, likely mild pulmonary edema in the setting of cardiomegaly. There is no focal airspace opacity. Chest/Abdomen CTA 06/27/18 21:14 IMPRESSION: Limited study however no central pulmonary embolus. Negative for thoracic aortic aneurysm, or dissection. Equivocal groundglass opacities suggesting minor pneumonitis. 7.7 mm nodule in the posterior left lung base. 2017 Fleischner Society Recommendations for Single Solid Lung Nodule Follow-Up based on size (average of long- and short-axis diameters) <6 mm Low-Risk Patient: No routine follow-up <6 mm High-Risk Patient: Optional CT at 12 months 6-8 mm Low-Risk Patient: CT at 6-[address] at 18-24 months 6-8 mm High-Risk Patient: CT at 6-[address] at 18-24 months >8 mm Low-Risk Patient: Consider CT, PET/CT or tissue sampling at 3 months >8 mm High-Risk Patient: Same as for low-risk patient TECHNICAL DOCUMENTATION: Quality ID # 436: Final reports with documentation of one or more dose reduction techniques (e.g., Automated exposure control, adjustment of the mA and/or kV according to patient size, use of iterative reconstruction technique) copyright 2011 [employer]- All Rights Reserved Assessment & Plan - Diagnosis (1) Acute respiratory failure with hypoxia Is this a current diagnosis for this admission?: Yes (2) Asthma Qualifiers: Asthma severity: unspecified severity Asthma persistence: intermittent Asthma complication type: uncomplicated Qualified Code(s): J45.20 - Mild intermittent asthma, uncomplicated Is this a current diagnosis for this admission?: Yes (3) Incidental lung nodule, > 3mm and < 8mm Is this a current diagnosis for this admission?: Yes (4) Morbid obesity with BMI of 70 and over, adult Is this a current diagnosis for this admission?: Yes (5) Venous stasis Is this a current diagnosis for this admission?: Yes (6) Acute oral pain Is this a current diagnosis for this admission?: Yes - Plan Summary Plan Summary: Patient is continuing to improve. He has possible bacteremia, as blood culture growing gram-positive cocci in clusters in 1 of 2 bottles, although this may very well be a contaminant. He is on antibiotics with Rocephin and doxycycline, will continue for now. Throat culture also growing group B strep, suspect pharyngitis. Follow-up cultures sensitivities. Will recheck blood cultures in a.m. For acute respiratory failure/asthma, will continue budesonide, O2, duo nebs. Will continue to monitor closely. CT of the chest revealed 7.7 mm nodule in the posterior left lung base. Again reminded patient that he will need repeat f/u chest CT in 12 months.
[2018-06-30] MEDS: CEFTRIAXONE SODIUM 1,000 MG in DEXTROSE 5%-WATER 50 ML IV SCH (23:35)
[2018-07-01] MEDS: DOXYCYCLINE HYCLATE 100 MG in DEXTROSE 5%-WATER 250 ML IV SCH ×2 (01:55→09:07)
[2018-07-01] MEDS: HEPARIN SOD (PORCINE) 5,000 UNIT/ML 1 ML SYRINGE SUBCUT SCH ×3 (05:13→22:03)
[2018-07-01 07:26] LABS: HEMATOCRIT 33.4 % (37.9-51.0); HEMOGLOBIN 11.1 g/dL (13.5-17.0); MEAN CORPUSCULAR HEMOGLOBIN 24.6 pg (27.0-33.4); MEAN CORPUSCULAR HGB CONC 33.2 g/dL (32.0-36.0); MEAN CORPUSCULAR VOLUME 74 fl (80-97); PLATELET COUNT 398 10^3/uL (150-450); RED CELL DISTRIBUTION WIDTH 17.9 % (11.5-14.0); WHITE BLOOD COUNT 11.9 10^3/uL (4.0-10.5)
[2018-07-01 07:47] LABS: ANION GAP 8 (5-19); BLOOD UREA NITROGEN 20 mg/dL (7-20); CALCIUM 8.8 mg/dL (8.4-10.2); CARBON DIOXIDE 30 mmol/L (22-30); CHLORIDE 102 mmol/L (98-107); GLUCOSE 100 mg/dL (75-110); SODIUM 140.3 mmol/L (137-145)
[2018-07-01] MEDS: BUDESONIDE NEB 0.5 MG/2 ML AMPUL NEB SCH ×2 (07:47→19:39)
[2018-07-01] MEDS: IPRATROPIUM/ALBUTEROL 0.5-2.5 MG/3 ML AMPUL NEB SCH ×2 (07:47→13:28)
[2018-07-01 08:18] LABS: ABSOLUTE LYMPHOCYTES# (MANUAL) 1.9 10^3/uL (0.5-4.7); ABSOLUTE MONOCYTES # (MANUAL) 0.6 10^3/uL (0.1-1.4); ABSOLUTE NEUTROPHILS# (MANUAL) 9.2 10^3/uL (1.7-8.2); BAND NEUTROPHILS % (MANUAL) 1 % (3-5); BASOPHILS % (MANUAL) 1 % (0-2); EOSINOPHILS % (MANUAL) 1 % (0-6); LYMPHOCYTES % (MANUAL) 16 % (13-45); METAMYELOCYTES % (MANUAL) 2 % (0); MONOCYTES % (MANUAL) 5 % (3-13); SEGMENTED NEUTROPHILS % (MAN) 74 % (42-78); TOTAL CELLS COUNTED 100
[2018-07-01 08:19] LABS: ANISOCYTOSIS 1+; HYPOCHROMASIA 1+; OVALOCYTES SLIGHT; PLATELET COMMENT ADEQUATE; POIKILOCYTOSIS SLIGHT; TOXIC GRANULATION 1+
[2018-07-01] MEDS: FAMOTIDINE 20 MG TABLET PO SCH ×2 (09:07→22:05)
[2018-07-01] MEDS: DOCUSATE SODIUM 100 MG CAPSULE PO SCH ×2 (09:08→17:05)
--- NOTE | 2018-07-01 18:08 | PDOC PROGRESS REPORT ---
Subjective Progress Note for:: 07/01/18 Subjective:: The patient is a 28-year-old male with a past medical history of asthma, diabetes mellitus type 2, super morbid obesity, and arthritis who was admitted 06/28/2018 for acute respiratory failure with hypoxia and pharyngitis. Patient was seen on morning rounds. He was found resting in bed comfortably on room air; initially he was sleeping but woke easily when I said his name. He states that he is feeling nearly back to his baseline; shortness of breath is resolved. He does report continued fatigue and a slight sore throat; however, these are both noted to be improved. He is hopeful to be discharged to home soon. He denies fever, chills, chest pain, palpitations, dyspnea, orthopnea, cough, abdominal pain, nausea, and vomiting. He has no new questions or concerns. No concerns per nursing. Reason For Visit: ACUTE RESPIRATORY FAILURE WITH HYPOXIA Physical Exam Vital Signs: Temp Pulse Resp BP Pulse Ox 97.8 F 81 20 165/80 H 100 07/01/18 16:12 07/01/18 16:12 07/01/18 16:12 07/01/18 16:12 07/01/18 16:12 Intake & Output 06/30/18 07/01/18 07/02/18 06:59 06:59 06:59 Intake Total 2182 1675 250 Balance 2182 1675 250 Weight 200.1 kg 200.1 kg General appearance: PRESENT: no acute distress, morbidly obese, well-developed, well-nourished Head exam: PRESENT: atraumatic, normocephalic Eye exam: PRESENT: conjunctiva pink, EOMI, PERRLA. ABSENT: scleral icterus Mouth exam: PRESENT: moist, tongue midline Neck exam: PRESENT: full ROM Respiratory exam: PRESENT: clear to auscultation les, decreased breath sounds - Throughout secondary to body habitus, symmetrical, unlabored. ABSENT: rales, rhonchi, wheezes Cardiovascular exam: PRESENT: RRR, +S1, +S2. ABSENT: diastolic murmur, rubs, systolic murmur Vascular exam: PRESENT: normal capillary refill GI/Abdominal exam: PRESENT: other - Exam limited secondary to body habitus Extremities exam: PRESENT: full ROM. ABSENT: calf tenderness, clubbing, pedal edema Neurological exam: PRESENT: alert, awake, oriented to person, oriented to place, oriented to time, oriented to situation, CN II-XII grossly intact. ABSENT: motor sensory deficit Psychiatric exam: PRESENT: appropriate affect, normal mood. ABSENT: homicidal ideation, suicidal ideation Skin exam: PRESENT: dry, intact, warm. ABSENT: cyanosis, rash Results Laboratory Results: 07/01/18 07:03 07/01/18 07:03 07/01/18 07/01/18 07:03 07:03 WBC 11.9 H RBC 4.50 Hgb 11.1 L Hct 33.4 L MCV 74 L MCH 24.6 L MCHC 33.2 RDW 17.9 H Plt Count 398 Seg Neutrophils % Not Reportable Lymphocytes % Not Reportable Monocytes % Not Reportable Eosinophils % Not Reportable Basophils % Not Reportable Absolute Neutrophils Not Reportable Absolute Lymphocytes Not Reportable Absolute Monocytes Not Reportable Absolute Eosinophils Not Reportable Absolute Basophils Not Reportable Sodium 140.3 Potassium 4.0 Chloride 102 Carbon Dioxide 30 Anion Gap 8 BUN 20 Creatinine 0.66 Est GFR ( Amer) > 60 Est GFR (Non-Af Amer) > 60 Glucose 100 Calcium 8.8 06/27/18 06/27/18 06/28/18 20:30 20:30 03:38 Creatine Kinase 972 H 834 H CK-MB (CK-2) 3.63 Troponin I < 0.012 NT-Pro-B Natriuret Pep 162 H 06/28/18 06/28/18 06/28/18 03:38 09:11 09:11 Creatine Kinase 730 H CK-MB (CK-2) 2.64 2.87 Troponin I < 0.012 < 0.012 NT-Pro-B Natriuret Pep 06/28/18 06/28/18 06/29/18 15:18 15:18 06:20 Creatine Kinase 585 H CK-MB (CK-2) 3.91 Troponin I < 0.012 NT-Pro-B Natriuret Pep 99 Impressions: Chest X-Ray 06/27/18 19:31 IMPRESSION: Diffuse bilateral interstitial pulmonary opacity, likely mild pulmonary edema in the setting of cardiomegaly. There is no focal airspace opacity. Chest/Abdomen CTA 06/27/18 21:14 IMPRESSION: Limited study however no central pulmonary embolus. Negative for thoracic aortic aneurysm, or dissection. Equivocal groundglass opacities suggesting minor pneumonitis. 7.7 mm nodule in the posterior left lung base. 2017 Fleischner Society Recommendations for Single Solid Lung Nodule Follow-Up based on size (average of long- and short-axis diameters) <6 mm Low-Risk Patient: No routine follow-up <6 mm High-Risk Patient: Optional CT at 12 months 6-8 mm Low-Risk Patient: CT at 6-[address] at 18-24 months 6-8 mm High-Risk Patient: CT at 6-[address] at 18-24 months >8 mm Low-Risk Patient: Consider CT, PET/CT or tissue sampling at 3 months >8 mm High-Risk Patient: Same as for low-risk patient TECHNICAL DOCUMENTATION: Quality ID # 436: Final reports with documentation of one or more dose reduction techniques (e.g., Automated exposure control, adjustment of the mA and/or kV according to patient size, use of iterative reconstruction technique) copyright 2011 [employer]- All Rights Reserved Assessment & Plan - Diagnosis (1) Acute respiratory failure with hypoxia Is this a current diagnosis for this admission?: Yes Plan: Resolved; likely secondary to asthma exacerbation. He is now maintaining oxygen saturations while ambulatory on room air. Resume home dose Advair. Continue twice daily Pulmicort. Continue as needed nebulizer treatments. (2) Bacteremia Is this a current diagnosis for this admission?: Yes Plan: Blood cultures (one set) #1 staph hominis; contaminant, #2 gram-positive organism; identification and sensitivity pending. Remaining blood cultures from initial set are negative at 72 hours. Repeat blood cultures (07/01/2018) are pending. Throat culture positive for group G beta strep. Patient is currently on IV Rocephin and doxycycline; will adjust as blood cultures result. Spoke with micro today; anticipating that second organism will be identified tomorrow. Patient remains afebrile with normal WBCs anticipate that it will also be a contaminant; if so the patient can be transitioned to p.o. antibiotics and discharged home. (3) Incidental lung nodule, > 3mm and < 8mm Is this a current diagnosis for this admission?: Yes Plan: CT of the chest revealed a 7.7 mm nodule in the posterior left lung base; will require follow-up chest imaging in 12 months. (4) Asthma Qualifiers: Asthma severity: unspecified severity Asthma persistence: intermittent Asthma complication type: uncomplicated Qualified Code(s): J45.20 - Mild intermittent asthma, uncomplicated Is this a current diagnosis for this admission?: Yes Plan: Home dose Advair is resumed. (5) Morbid obesity with BMI of 70 and over, adult Is this a current diagnosis for this admission?: Yes Plan: TSH normal, free T4 normal. A1c 5.7%. Lipid panel revealed hypertriglyceridemia and low HDL. Dietary discretion is advised. - Time Time Spent with patient: 15-24 minutes Medications reviewed and adjusted accordingly: Yes Anticipated discharge: Home Within: within 24 hours
[2018-07-01] MEDS ORDERED: CEFTRIAXONE 1 GM/D5W RTU 1 GM/50 ML RTUPB IV SCH (22:00)
[2018-07-02] MEDS: DOXYCYCLINE HYCLATE 100 MG in DEXTROSE 5%-WATER 250 ML IV SCH (01:40)
[2018-07-02] MEDS: FLUTICASONE/SALMETEROL DISKUS 250-50 MCG/DOSE IH SCH ×5 (01:42→21:15)
[2018-07-02] MEDS: HEPARIN SOD (PORCINE) 5,000 UNIT/ML 1 ML SYRINGE SUBCUT SCH ×3 (05:19→21:12)
[2018-07-02 06:19] LABS: HEMATOCRIT 33.9 % (37.9-51.0); HEMOGLOBIN 11.1 g/dL (13.5-17.0); MEAN CORPUSCULAR HEMOGLOBIN 24.5 pg (27.0-33.4); MEAN CORPUSCULAR HGB CONC 32.8 g/dL (32.0-36.0); MEAN CORPUSCULAR VOLUME 75 fl (80-97); PLATELET COUNT 400 10^3/uL (150-450); RED BLOOD COUNT 4.55 10^6/uL (4.35-5.55); RED CELL DISTRIBUTION WIDTH 17.8 % (11.5-14.0); WHITE BLOOD COUNT 16.9 10^3/uL (4.0-10.5)
[2018-07-02] MEDS: BUDESONIDE NEB 0.5 MG/2 ML AMPUL NEB SCH ×2 (08:04→19:55)
[2018-07-02] MEDS: DOCUSATE SODIUM 100 MG CAPSULE PO SCH ×2 (09:01→17:14)
[2018-07-02] MEDS: FAMOTIDINE 20 MG TABLET PO SCH ×2 (09:02→21:15)
[2018-07-02] MEDS: PENICILLIN V POTASSIUM 500 MG TABLET PO SCH ×2 (13:03→21:15)
--- NOTE | 2018-07-02 17:57 | PDOC PROGRESS REPORT ---
Subjective Progress Note for:: 07/02/18 Subjective:: The patient is a 28-year-old male with a past medical history of asthma, diabetes mellitus type 2, super morbid obesity, and arthritis who was admitted 06/28/2018 for acute respiratory failure with hypoxia and pharyngitis. Patient was seen on morning rounds. He was found resting in bed comfortably on room air. He states that he is feeling well today; shortness of breath is resolved and sore throat is much improved. He denies fever, chills, chest pain, palpitations, dyspnea, orthopnea, cough, abdominal pain, nausea, and vomiting. He has no new questions or concerns. No concerns per nursing. Reason For Visit: ACUTE RESPIRATORY FAILURE WITH HYPOXIA Physical Exam Vital Signs: Temp Pulse Resp BP Pulse Ox 98.0 F 81 20 157/82 H 96 07/02/18 16:14 07/02/18 16:14 07/02/18 16:14 07/02/18 16:14 07/02/18 16:14 Intake & Output 07/01/18 07/02/18 07/03/18 06:59 06:59 06:59 Intake Total 1675 3339 572 Balance 1675 3339 572 Weight 200.1 kg 199.7 kg General appearance: PRESENT: no acute distress, morbidly obese - super morbid obesity, well-developed, well-nourished Head exam: PRESENT: atraumatic, normocephalic Eye exam: PRESENT: conjunctiva pink, EOMI, PERRLA. ABSENT: scleral icterus Ear exam: PRESENT: normal external ear exam Mouth exam: PRESENT: moist, tongue midline Respiratory exam: PRESENT: clear to auscultation les, decreased breath sounds - throughout secondary to body habitus, symmetrical, unlabored. ABSENT: rales, rhonchi, wheezes Cardiovascular exam: PRESENT: RRR, +S1, +S2. ABSENT: diastolic murmur, rubs, systolic murmur Vascular exam: PRESENT: normal capillary refill Extremities exam: PRESENT: full ROM. ABSENT: calf tenderness, clubbing, pedal edema Neurological exam: PRESENT: alert, awake, oriented to person, oriented to place, oriented to time, oriented to situation, CN II-XII grossly intact. ABSENT: motor sensory deficit Psychiatric exam: PRESENT: appropriate affect, normal mood. ABSENT: homicidal ideation, suicidal ideation Skin exam: PRESENT: dry, intact, warm. ABSENT: cyanosis, rash Results Laboratory Results: 07/02/18 05:21 07/01/18 07:03 07/02/18 05:21 WBC 16.9 H RBC 4.55 Hgb 11.1 L Hct 33.9 L MCV 75 L MCH 24.5 L MCHC 32.8 RDW 17.8 H Plt Count 400 06/27/18 06/27/18 06/28/18 20:30 20:30 03:38 Creatine Kinase 972 H 834 H CK-MB (CK-2) 3.63 Troponin I < 0.012 NT-Pro-B Natriuret Pep 162 H 06/28/18 06/28/18 06/28/18 03:38 09:11 09:11 Creatine Kinase 730 H CK-MB (CK-2) 2.64 2.87 Troponin I < 0.012 < 0.012 NT-Pro-B Natriuret Pep 06/28/18 06/28/18 06/29/18 15:18 15:18 06:20 Creatine Kinase 585 H CK-MB (CK-2) 3.91 Troponin I < 0.012 NT-Pro-B Natriuret Pep 99 Impressions: Chest X-Ray 06/27/18 19:31 IMPRESSION: Diffuse bilateral interstitial pulmonary opacity, likely mild pulmonary edema in the setting of cardiomegaly. There is no focal airspace opacity. Chest/Abdomen CTA 06/27/18 21:14 IMPRESSION: Limited study however no central pulmonary embolus. Negative for thoracic aortic aneurysm, or dissection. Equivocal groundglass opacities suggesting minor pneumonitis. 7.7 mm nodule in the posterior left lung base. 2017 Fleischner Society Recommendations for Single Solid Lung Nodule Follow-Up based on size (average of long- and short-axis diameters) <6 mm Low-Risk Patient: No routine follow-up <6 mm High-Risk Patient: Optional CT at 12 months 6-8 mm Low-Risk Patient: CT at 6-[address] at 18-24 months 6-8 mm High-Risk Patient: CT at 6-[address] at 18-24 months >8 mm Low-Risk Patient: Consider CT, PET/CT or tissue sampling at 3 months >8 mm High-Risk Patient: Same as for low-risk patient TECHNICAL DOCUMENTATION: Quality ID # 436: Final reports with documentation of one or more dose reduction techniques (e.g., Automated exposure control, adjustment of the mA and/or kV according to patient size, use of iterative reconstruction technique) copyright 2011 [employer]- All Rights Reserved Assessment & Plan - Diagnosis (1) Acute respiratory failure with hypoxia Is this a current diagnosis for this admission?: Yes Plan: Resolved; likely secondary to asthma exacerbation. He is now maintaining oxygen saturations while ambulatory on room air. Resume home dose Advair. Continue twice daily Pulmicort. Continue as needed nebulizer treatments. (2) Bacteremia Is this a current diagnosis for this admission?: Yes Plan: Blood cultures (one set) #1 staph hominis; contaminant, #2 gram-positive cocci; identification and sensitivity pending. Remaining blood cultures from initial set are negative at 72 hours. Repeat blood cultures (07/01/2018) are negative at 24 hours. Throat culture positive for group G beta strep. Patient was initially placed on IV Rocephin and doxycycline; discontinued today. Spoke with micro today regarding second organism; possibly Peptostreptococcus given patient's presentation with pharyngitis. Will place on Penicillin VK 500 mg p.o. BID for treatment of strep pharyngitis. (3) Incidental lung nodule, > 3mm and < 8mm Is this a current diagnosis for this admission?: Yes Plan: CT of the chest revealed a 7.7 mm nodule in the posterior left lung base; will require follow-up chest imaging in 12 months. (4) Asthma Qualifiers: Asthma severity: unspecified severity Asthma persistence: intermittent Asthma complication type: uncomplicated Qualified Code(s): J45.20 - Mild intermittent asthma, uncomplicated Is this a current diagnosis for this admission?: Yes Plan: Home dose Advair is resumed. (5) Morbid obesity with BMI of 70 and over, adult Is this a current diagnosis for this admission?: Yes Plan: TSH normal, free T4 normal. A1c 5.7%. Lipid panel revealed hypertriglyceridemia and low HDL. Dietary discretion is advised. - Time Time Spent with patient: Less than 15 minutes Medications reviewed and adjusted accordingly: Yes Anticipated discharge: Home Within: within 24 hours - Pending blood culture results
[2018-07-03 04:57] LABS: HEMATOCRIT 35.8 % (37.9-51.0); HEMOGLOBIN 11.5 g/dL (13.5-17.0); MEAN CORPUSCULAR HEMOGLOBIN 24.2 pg (27.0-33.4); MEAN CORPUSCULAR HGB CONC 32.1 g/dL (32.0-36.0); MEAN CORPUSCULAR VOLUME 75 fl (80-97); PLATELET COUNT 361 10^3/uL (150-450); RED BLOOD COUNT 4.76 10^6/uL (4.35-5.55); RED CELL DISTRIBUTION WIDTH 17.9 % (11.5-14.0); WHITE BLOOD COUNT 15.7 10^3/uL (4.0-10.5)
[2018-07-03] MEDS: HEPARIN SOD (PORCINE) 5,000 UNIT/ML 1 ML SYRINGE SUBCUT SCH ×2 (06:24→13:54)
[2018-07-03] MEDS: PENICILLIN V POTASSIUM 500 MG TABLET PO SCH ×2 (06:25→13:58)
[2018-07-03] MEDS: BUDESONIDE NEB 0.5 MG/2 ML AMPUL NEB SCH (08:01)
[2018-07-03] MEDS: FLUTICASONE/SALMETEROL DISKUS 250-50 MCG/DOSE IH SCH (09:19)
[2018-07-03] MEDS: FAMOTIDINE 20 MG TABLET PO SCH (09:19)
[2018-07-03] MEDS: DOCUSATE SODIUM 100 MG CAPSULE PO SCH (09:20)
[2018-07-03 15:43] VITALS: BP 142/78
--- NOTE | 2018-07-03 16:50 | PDOC CONSULTATION ---
Consultation Consult Date: 07/02/18 Attending physician:: AYA LOUIE Consult reason:: dypsnea History of Present Illness Admission Date/PCP: 06/28/18 02:40 History of Present Illness: MOON ALEJO JR is a 28 year old male;admitted chills and dyspnea and clear coughhas hx of asthma since childhood. 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 he has 5 dogs as well as illicit no recent travel 3 pillows no PND occasional nocturnal cough K chronic edema he admits to snoring restless sleep nocturia 2-3-4 times per night unrestful sleep and daytime somnolence Past Medical History Cardiac Medical History: Denies: Coronary Artery Disease, Hypertension Pulmonary Medical History: Reports: Asthma, Pneumonia EENT Medical History: Reports: None Neurological Medical History: Denies: Hemorrhagic CVA, Ischemic CVA, Multiple Sclerosis, Seizures Endocrine Medical History: Reports: Diabetes Mellitus Type 2, Obesity Denies: Diabetes Mellitus Type 1 Renal/ Medical History: Denies: Chronic Kidney Disease, Nephrolithiasis Malignancy Medical History: Reports: None GI Medical History: Denies: Cirrhosis, Crohn's Disease, Hepatitis, Ulcerative Colitis Musculoskeltal Medical History: Reports: Arthritis Denies: Gout Skin Medical History: Denies: Eczema, Psoriasis Psychiatric Medical History: Denies: Alcohol Dependency, Substance Abuse, Tobacco Dependency Traumatic Medical History: Reports: None Denies: Stab Wound, Traumatic Brain Injury Hematology: Denies: Anemia, Bleeding Tendencies Infectious Medical History: Reports: None Past Surgical History Past Surgical History: Reports: Orthopedic Surgery, Other - Tracheotomy due to pneumonia and asthma attack Social History Information Source: Patient, [facility], [facility] Records Lives with: Family Smoking Status: Never Smoker Passive smoke exposure as: Both Frequency of Alcohol Use: Rare Hx Recreational Drug Use: No Drugs: None Hx Prescription Drug Abuse: No Do you have pets?: No Have you had any respiratory illnesses as a child?: No Have you been exposed to any sick contacts recently?: No Have you had any recent respiratory illnesses?: No Have you travelled outside of [place] in the past 12 months?: No - Advance Directive Resuscitation Status: Full Code Family History Family History: COPD, DM, Other - Sleep apnea Parental Family History Reviewed: Yes Children Family History Reviewed: Yes Sibling(s) Family History Reviewed.: Yes Medication/Allergy Home Medications: Albuterol Sulfate [Proair HFA Inhalation Aerosol 8.5 gm MDI] 2 puff IH Q4HP PRN 06/28/18 Fluticasone/Salmeterol [Advair 250-50 Diskus 14 Dose/Diskus] 1 puff IH Q12 06/28/18 Pantoprazole Sodium [Protonix] 40 mg PO DAILY 06/28/18 Acetaminophen [Tylenol 325 mg Tablet] 650 mg PO Q4HP PRN tablet 07/03/18 Penicillin V Potassium [Penicillin Vk 500 mg Tablet] 500 mg PO Q8 #30 tablet 07/03/18 Allergies/Adverse Reactions: No Known Allergies Allergy (Verified 06/27/18 18:09) Review of Systems Constitutional: PRESENT: weakness, weight gain. ABSENT: anorexia, chills, fatigue, headache(s), night sweats Eyes: ABSENT: visual disturbances Ears: ABSENT: hearing changes Nose, Mouth, and Throat: ABSENT: mouth pain, sore throat Cardiovascular: PRESENT: dyspnea on exertion, edema, orthropnea. ABSENT: palpitations Respiratory: PRESENT: cough. ABSENT: hemoptysis Gastrointestinal: PRESENT: constipation. ABSENT: abdominal pain, bloating, coffee ground emesis, diarrhea, heartburn, hematemesis, hematochezia, melena Genitourinary: ABSENT: dysuria, hematuria Musculoskeletal: ABSENT: joint swelling Integumentary: ABSENT: pruritus, rash Neurological: ABSENT: abnormal gait, abnormal movements, abnormal speech, confusion, focal weakness, frequent falls, lack of coordination, memory loss, numbness Psychiatric: ABSENT: hallucinations, homidical ideation, suicidal ideation Endocrine: ABSENT: cold intolerance, heat intolerance, polydipsia, polyuria Hematologic/Lymphatic: ABSENT: easy bruising, lymphadenopathy Allergic/Immunologic: ABSENT: seasonal rhinorrhea Physical Exam Vital Signs: Temp Pulse Resp BP Pulse Ox 97.9 F 74 15 136/61 H 98 07/03/18 03:58 07/03/18 08:01 07/03/18 08:01 07/03/18 03:58 07/03/18 08:01 Intake & Output 07/02/18 07/03/1819 06:59 06:59 06:59 Intake Total 3339 1192 Balance 3339 1192 Weight 199.7 kg 199.5 kg General appearance: PRESENT: no acute distress, cooperative, disheveled, morbidly obese Head exam: PRESENT: atraumatic, normocephalic Eye exam: PRESENT: conjunctiva pale, EOMI. ABSENT: nystagmus, scleral icterus Mouth exam: PRESENT: dry mucosa, neck supple, tongue midline, other - Putting more for Neck exam: ABSENT: carotid bruit, JVD, lymphadenopathy, thyromegaly, tracheal deviation, tracheostomy Respiratory exam: PRESENT: decreased breath sounds, prolonged expiratory phas, rhonchi, unlabored, wheezes. ABSENT: tachypnea Cardiovascular exam: PRESENT: RRR, +S1, +S2 Pulses: PRESENT: normal radial pulses GI/Abdominal exam: PRESENT: soft. ABSENT: tenderness Extremities exam: PRESENT: pedal edema, +2 edema. ABSENT: calf tenderness, clubbing, joint swelling Musculoskeletal exam: PRESENT: ambulatory. ABSENT: deformity, dislocation Neurological exam: PRESENT: alert, awake Psychiatric exam: PRESENT: appropriate affect Skin exam: PRESENT: dry, warm Results Laboratory Results: 07/03/18 04:19 07/01/18 07:03 07/03/18 04:19 WBC 15.7 H RBC 4.76 Hgb 11.5 L Hct 35.8 L MCV 75 L MCH 24.2 L MCHC 32.1 RDW 17.9 H Plt Count 361 06/28/18 02:40 Blood Blood Culture - Final Staphylococcus Hominis Peptostreptococcus Micros 06/28/18 03:07 Blood Blood Culture - Final NO GROWTH IN 5 DAYS 06/27/18 06/27/18 06/28/18 20:30 20:30 03:38 Creatine Kinase 972 H 834 H CK-MB (CK-2) 3.63 Troponin I < 0.012 NT-Pro-B Natriuret Pep 162 H 06/28/18 06/28/18 06/28/18 03:38 09:11 09:11 Creatine Kinase 730 H CK-MB (CK-2) 2.64 2.87 Troponin I < 0.012 < 0.012 NT-Pro-B Natriuret Pep 12/29/18 12/29/18 12/30/18 15:18 15:18 06:20 Creatine Kinase 585 H CK-MB (CK-2) 3.91 Troponin I < 0.012 NT-Pro-B Natriuret Pep 99 Impressions: Chest X-Ray 06/27/18 19:31 IMPRESSION: Diffuse bilateral interstitial pulmonary opacity, likely mild pulmonary edema in the setting of cardiomegaly. There is no focal airspace opacity. Chest/Abdomen CTA 06/27/18 21:14 IMPRESSION: Limited study however no central pulmonary embolus. Negative for thoracic aortic aneurysm, or dissection. Equivocal groundglass opacities suggesting minor pneumonitis. 7.7 mm nodule in the posterior left lung base. 2017 Fleischner Society Recommendations for Single Solid Lung Nodule Follow-Up based on size (average of long- and short-axis diameters) <6 mm Low-Risk Patient: No routine follow-up <6 mm High-Risk Patient: Optional CT at 12 months 6-8 mm Low-Risk Patient: CT at 6-[address] at 18-24 months 6-8 mm High-Risk Patient: CT at 6-[address] at 18-24 months >8 mm Low-Risk Patient: Consider CT, PET/CT or tissue sampling at 3 months >8 mm High-Risk Patient: Same as for low-risk patient TECHNICAL DOCUMENTATION: Quality ID # 436: Final reports with documentation of one or more dose reduction techniques (e.g., Automated exposure control, adjustment of the mA and/or kV according to patient size, use of iterative reconstruction technique) copyright 2011 [employer]- All Rights Reserved Assessment & Plan - Diagnosis (1) Acute respiratory failure with hypoxia Is this a current diagnosis for this admission?: Yes Plan: supplemental oxygen (2) Incidental lung nodule, > 3mm and < 8mm Is this a current diagnosis for this admission?: Yes Plan: CT scan in 12 months never smoked at low risk (3) Morbid obesity with BMI of 70 and over, adult Is this a current diagnosis for this admission?: Yes Plan: Nutritional consult consider bariatric surgery consult (4) Asthma Qualifiers: Asthma severity: unspecified severity Asthma persistence: intermittent Asthma complication type: uncomplicated Qualified Code(s): J45.20 - Mild intermittent asthma, uncomplicated Is this a current diagnosis for this admission?: Yes Plan: Peak flow meter inhaled corticosteroid long-acting beta agonist long-acting cholinergic and a course of rescue medication probably in the form of Xopenex
--- NOTE | 2018-07-03 18:01 | PDOC DISCHARGE SUMMARY ---
General - Admit/Disc Date/PCP Admission Date/Primary Care Provider: 06/28/18 02:40 Discharge Date: 07/03/18 - Discharge Diagnosis (1) Acute respiratory failure with hypoxia Is this a current diagnosis for this admission?: Yes Summary: Resolved; secondary to asthma exacerbation. Recommend establishing with outpatient enrollment clerk. (2) Incidental lung nodule, > 3mm and < 8mm Is this a current diagnosis for this admission?: Yes Summary: CT of the chest revealed a 7.7 mm nodule in the posterior left lung base; will require follow-up chest imaging in 12 months. (3) Asthma Is this a current diagnosis for this admission?: Yes Summary: Continue home dose Advair. Recommend establishing with outpatient enrollment clerk. (4) Morbid obesity with BMI of 70 and over, adult Is this a current diagnosis for this admission?: Yes Summary: TSH normal, free T4 normal. A1c 5.7%. Lipid panel revealed hypertriglyceridemia and low HDL. Weight loss is strongly encouraged; dietary discretion is advised. Patient may benefit from outpatient pig farm manager, and consideration of evaluation for bariatric surgery. (5) Bacteremia Is this a current diagnosis for this admission?: Yes Summary: Ruled out; determined to be contaminant. (6) Strep pharyngitis Is this a current diagnosis for this admission?: Yes Summary: Throat culture positive for group G beta strep. Patient was initially placed on IV Rocephin and doxycycline; transition to p.o. penicillin VK 500 mg three times daily once throat and blood culture identification and sensitivities were available. Patient remains afebrile; leukocytosis is trending down, symptoms are significantly improved. He is discharged with a prescription for Pen-VK three times daily times 10 days. - Additional Information Resuscitation Status: Full Code Discharge Diet: Regular, Other (Comments) Discharge Activity: Activity As Tolerated, Slowly Increase Activity, Walk Frequently Prescriptions: Penicillin V Potassium [Penicillin Vk 500 mg Tablet] 500 mg PO Q8 #30 tablet Home Medications: Albuterol Sulfate [Proair HFA Inhalation Aerosol 8.5 gm MDI] 2 puff IH Q4HP PRN 06/28/18 Fluticasone/Salmeterol [Advair 250-50 Diskus 14 Dose/Diskus] 1 puff IH Q12 06/28/18 Pantoprazole Sodium [Protonix] 40 mg PO DAILY 06/28/18 Acetaminophen [Tylenol 325 mg Tablet] 650 mg PO Q4HP PRN tablet 07/03/18 Penicillin V Potassium [Penicillin Vk 500 mg Tablet] 500 mg PO Q8 #30 tablet 07/03/18 History of Present Illness History of Present Illness: Per H&P by Dr. Mullen: MOON ALEJO JR is a 28 year old male who presented to the emergency room with a 3-day history of progressively worsening dyspnea accompanied by progressively worsening fatigue as well as tongue/oral cavity pain, decreased appetite and neck soreness. He complains of feeling sleepy most all the time where he will sleep for an hour or so and then wake up and feel okay for short period of time to become very drowsy and go back to sleep. He denies fever over the course of this illness but he does admit to occasional chills and sweating episodes as well as occasional mild dizziness/lightheadedness with activity. He rates his dyspnea currently as moderately severe and admits that he has had numerous similar prior episodes although this is more severe than his usual problems. He has not identified any aggravating or ameliorating factors for his dyspnea. In the emergency room he was found to be hypoxic with a PA O2 in the 50s with a respiratory alkalosis suggesting hyperventilation to maintain an adequate oxygenation. Patient was therefore given supplemental oxygen and admitted the hospital for further evaluation and treatment. Physical Exam Vital Signs: Temp Pulse Resp BP Pulse Ox 97.9 F 74 15 142/78 H 98 07/03/18 15:41 07/03/18 15:41 07/03/18 15:41 07/03/18 15:41 07/03/18 15:41 Intake & Output 07/02/18 07/03/18 07/04/18 06:59 06:59 06:59 Intake Total 3339 1192 Balance 3339 1192 Weight 199.7 kg 199.5 kg Results Laboratory Results: 07/03/18 04:19 07/01/18 07:03 07/03/18 04:19 WBC 15.7 H RBC 4.76 Hgb 11.5 L Hct 35.8 L MCV 75 L MCH 24.2 L MCHC 32.1 RDW 17.9 H Plt Count 361 06/28/18 02:40 Blood Blood Culture - Final Staphylococcus Hominis Peptostreptococcus Micros 06/28/18 03:07 Blood Blood Culture - Final NO GROWTH IN 5 DAYS 06/27/18 06/27/18 06/28/18 20:30 20:30 03:38 Creatine Kinase 972 H 834 H CK-MB (CK-2) 3.63 Troponin I < 0.012 NT-Pro-B Natriuret Pep 162 H 06/28/18 06/28/18 06/28/18 03:38 09:11 09:11 Creatine Kinase 730 H CK-MB (CK-2) 2.64 2.87 Troponin I < 0.012 < 0.012 NT-Pro-B Natriuret Pep 06/28/18 06/28/18 06/29/18 15:18 15:18 06:20 Creatine Kinase 585 H CK-MB (CK-2) 3.91 Troponin I < 0.012 NT-Pro-B Natriuret Pep 99 Impressions: Chest X-Ray 06/27/18 19:31 IMPRESSION: Diffuse bilateral interstitial pulmonary opacity, likely mild pulmonary edema in the setting of cardiomegaly. There is no focal airspace opacity. Chest/Abdomen CTA 06/27/18 21:14 IMPRESSION: Limited study however no central pulmonary embolus. Negative for thoracic aortic aneurysm, or dissection. Equivocal groundglass opacities suggesting minor pneumonitis. 7.7 mm nodule in the posterior left lung base. 2017 Fleischner Society Recommendations for Single Solid Lung Nodule Follow-Up based on size (average of long- and short-axis diameters) <6 mm Low-Risk Patient: No routine follow-up <6 mm High-Risk Patient: Optional CT at 12 months 6-8 mm Low-Risk Patient: CT at 6-[address] at 18-24 months 6-8 mm High-Risk Patient: CT at 6-[address] at 18-24 months >8 mm Low-Risk Patient: Consider CT, PET/CT or tissue sampling at 3 months >8 mm High-Risk Patient: Same as for low-risk patient TECHNICAL DOCUMENTATION: Quality ID # 436: Final reports with documentation of one or more dose reduction techniques (e.g., Automated exposure control, adjustment of the mA and/or kV according to patient size, use of iterative reconstruction technique) copyright 2011 [facility]- All Rights Reserved Qualifiers - * PATIENT BEING DISCHARGED WITH ANY OF THE FOLLOWING DIAGNOSIS: No
== END 2018-07-03 16:47 | disposition home or self-care (01) | DRG 189 ==
LOC: ER 18:01 → EH 06-28 02:40 → 5 06-28 04:05
PROVIDERS: ADMIT Emergency Medicine; ATTEND Emergency Medicine
PROC: 3E0F3GC Introduction of Other Therapeutic Substance into Respiratory Tract, Percutaneous Approach (ICD-10-PCS; principal; 2018-06-28)
DX: J96.01 Acute respiratory failure with hypoxia (principal); E87.3 Alkalosis; Z68.45 Body mass index [BMI] 70 or greater, adult; E66.01 Morbid (severe) obesity due to excess calories; E11.9 Type 2 diabetes mellitus without complications; I87.8 Other specified disorders of veins; B95.1 Streptococcus, group B, as the cause of diseases classified elsewhere; M19.90 Unspecified osteoarthritis, unspecified site; K13.79 Other lesions of oral mucosa; R35.1 Nocturia; R40.0 Somnolence; R53.1 Weakness; R91.1 Solitary pulmonary nodule; J45.20 Mild intermittent asthma, uncomplicated; J02.0 Streptococcal pharyngitis; R79.89 Other specified abnormal findings of blood chemistry; Z87.01 Personal history of pneumonia (recurrent); Z82.5 Family history of asthma and other chronic lower respiratory diseases; Z83.3 Family history of diabetes mellitus; Z71.3 Dietary counseling and surveillance
CPT/HCPCS: 36415; 36600; 71046; 71275; 80048; 80053; 80061; 80307; 81001; 82550; 82553; 82803; 83036; 83735; 83880; 84439; 84443; 84481; 84484; 85025; 85027; 85379; 87040; 87070; 87077; 87186; 87880; 90471; 90686; 93005; 93010; 99291; 99292; G0008; J0696; J1644; J2920; J2930; J3490; J7060; J7620

== ENCOUNTER 2020-01-05 12:06 | Inpatient (IN) | payer SELFPAY ==
--- NOTE | 2020-01-05 13:17 | ER Document Report ---
ED Medical Screen (RME) - General Chief Complaint: Leg Pain Stated Complaint: RIGHT LEG PAIN Time Seen by Provider: 01/05/20 13:06 TRAVEL OUTSIDE OF THE [place] 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 Has not tried any [id number] medications, worse with time, nothing makes better. Patient has not been seen by a PCP for this issue. Pain is 3 out of 5. Unable to bear full weight. I have greeted and performed a rapid initial assessment of this patient. A comprehensive ED assessment and evaluation of the patient, analysis of test results and completion of the medical decision making process will be conducted by additional ED providers. PHYSICAL EXAMINATION: CV: s1, s2 regular LUNGS: No respiratory distress Musculoskeletal: Normal range of motion NEUROLOGICAL: Normal speech, normal gait. SKIN: Warm, Dry, normal turgor, no rashes or lesions noted. Right lower extremity with erythema, induration or warmth to touch with multiple areas of blistering, open wounds with clear drainage. Able to bear full weight - Related Data Allergies/Adverse Reactions: No Known Allergies Allergy (Verified 01/05/20 13:04) Past Medical History - Past Medical History Cardiac Medical History: Denies: Hx Coronary Artery Disease, Hx Hypertension Pulmonary Medical History: Reports: Hx Asthma, Hx Pneumonia Neurological Medical History: Denies: Hx Seizures Endocrine Medical History: Reports: Hx Diabetes Mellitus Type 2. Denies: Hx Diabetes Mellitus Type 1 Renal/ Medical History: Denies: Hx Peritoneal Dialysis GI Medical History: Denies: Hx Cirrhosis, Hx Crohn's Disease, Hx Hepatitis, Hx Ulcerative Colitis Musculoskeltal Medical History: Reports Hx Arthritis, Denies Hx Gout Skin Medical History: Reports Hx Cellulitis, Denies Hx Eczema, Denies Hx Psoriasis Traumatic Medical History: Denies: Hx Traumatic Brain Injury Infectious Medical History: Denies: Hx Hepatitis Past Surgical History: Reports: Hx Orthopedic Surgery, Other - Tracheotomy due to pneumonia and asthma attack - Immunizations Immunizations up to date: Yes Hx Diphtheria, Pertussis, Tetanus Vaccination: Yes Physical Exam - Vital signs Vitals: Temp Pulse Resp BP Pulse Ox 100.6 F H 119 H 20 135/73 H 96 01/05/20 12:13 01/05/20 12:13 01/05/20 12:13 01/05/20 12:13 01/05/20 12:13 Course - Vital Signs Vital signs: Temp Pulse Resp BP Pulse Ox 100.6 F H 119 H 20 135/73 H 96 01/05/20 12:13 01/05/20 12:13 01/05/20 12:13 01/05/20 12:13 01/05/20 12:13
[2020-01-05 13:56] LABS: ABSOLUTE LYMPHOCYTES (AUTO) 1.1 10^3/uL (0.5-4.7); ABSOLUTE MONOCYTES (AUTO) 1.1 10^3/uL (0.1-1.4); ABSOLUTE NEUT (AUTO) 8.4 10^3/uL (1.7-8.2); BASOPHILS % (AUTO) 0.3 % (0-2); EOSINOPHILS % (AUTO) 0.1 % (0-6); HEMATOCRIT 33.6 % (37.9-51.0); LYMPHOCYTES % (AUTO) 10.1 % (13-45); MEAN CORPUSCULAR HEMOGLOBIN 22.9 pg (27.0-33.4); MEAN CORPUSCULAR HGB CONC 32.8 g/dL (32.0-36.0); MEAN CORPUSCULAR VOLUME 70 fl (80-97); MONOCYTES % (AUTO) 10.3 % (3-13); PLATELET COUNT 277 10^3/uL (150-450); RED BLOOD COUNT 4.82 10^6/uL (4.35-5.55); RED CELL DISTRIBUTION WIDTH 19.8 % (11.5-14.0); SEGMENTED NEUTROPHILS % (AUTO) 79.2 % (42-78); TOTAL CELLS COUNTED % (AUTO) 100 %; WHITE BLOOD COUNT 10.6 10^3/uL (4.0-10.5)
[2020-01-05 14:04] LABS: INTERNATIONAL RATION (INR) 1.23; PROTHROMBIN TIME 15.6 SEC (11.4-15.4)
[2020-01-05 14:05] LABS: PARTIAL THROMBOPLASTIN TIME 40.5 SEC (23.5-35.8)
[2020-01-05 14:17] LABS: ALBUMIN 3.3 g/dL (3.5-5.0); ALKALINE PHOSPHATASE 111 U/L (38-126); ANION GAP 8 (5-19); ASPARTATE AMINO TRANSFERASE 53 U/L (17-59); BILIRUBIN,DIRECT 0.3 mg/dL (0.0-0.4); BILIRUBIN,TOTAL 0.9 mg/dL (0.2-1.3); BLOOD UREA NITROGEN 19 mg/dL (7-20); CALCIUM 8.1 mg/dL (8.4-10.2); CARBON DIOXIDE 27 mmol/L (22-30); CHLORIDE 97 mmol/L (98-107); GLUCOSE 149 mg/dL (75-110); TOTAL PROTEIN 7.7 g/dL (6.3-8.2)
--- NOTE | 2020-01-05 14:52 | RADIOLOGY REPORT (SQ) ---
EXAM DESCRIPTION: TIBIA FIBULA RIGHT IMAGES COMPLETED DATE/TIME: 01/05/2020 2:36 pm REASON FOR STUDY: pain with erythema, swelling, r/o osteo COMPARISON: None. NUMBER OF VIEWS: Two views. TECHNIQUE: Two radiographic images acquired of the right tibia and fibula to include the knee and an kle in at least one projection. LIMITATIONS: None. FINDINGS: MINERALIZATION: Normal. BONES: No acute fracture or dislocation. No worrisome bone lesions. SOFT TISSUES: No obvious swelling or foreign body. OTHER: No other significant finding. IMPRESSION: NEGATIVE STUDY OF THE RIGHT TIBIA AND FIBULA. NO RADIOGRAPHIC EVIDENCE OF ACUTE INJURY. TECHNICAL DOCUMENTATION: JOB ID: [id number] 2010 [employer]- All Rights Reserved Reading location - IP/workstation name: [email or web address]
--- NOTE | 2020-01-05 14:54 | RADIOLOGY REPORT (SQ) ---
EXAM DESCRIPTION: ANKLE RIGHT COMPLETE IMAGES COMPLETED DATE/TIME: 01/05/2020 2:36 pm REASON FOR STUDY: right ankle pain, erythema, swelling, induration COMPARISON: None. NUMBER OF VIEWS: Three views. TECHNIQUE: AP, lateral, and oblique radiographic images acquired of the right ankle. LIMITATIONS: None. FINDINGS: MINERALIZATION: Normal. BONES: No acute fracture or dislocation. No worrisome bone lesions. JOINTS: No effusions. SOFT TISSUES: No soft tissue swelling. No foreign body. OTHER: No other significant finding. IMPRESSION: NEGATIVE STUDY OF THE RIGHT ANKLE. NO RADIOGRAPHIC EVIDENCE OF ACUTE INJURY. TECHNICAL DOCUMENTATION: JOB ID: [id number] 2010 [employer]- All Rights Reserved Reading location - IP/workstation name: [email or web address]
[2020-01-05] MEDS ORDERED: NORMAL SALINE 1000 ML 1,000 ML IV ONE (16:51)
[2020-01-05] MEDS ORDERED: CEFTRIAXONE INJ 1000 MG VIAL IV ONE (16:52)
[2020-01-05] MEDS ORDERED: VANCOMYCIN HCL INJ 1000 MG VIAL IV ONE (16:53)
--- NOTE | 2020-01-05 17:03 | ER Document Report ---
ED General - General TRAVEL OUTSIDE OF THE [place] IN LAST 30 DAYS: No <DIONNE VIDAL - Last Filed: 01/05/20 20:05> <ADAL HUDSON - Last Filed: 01/06/20 01:16> - General Chief Complaint: Leg Swelling Stated Complaint: RIGHT LEG PAIN Time Seen by Provider: 01/05/20 13:06 Notes: 29-year-old male with past medical history of asthma and morbid obesity presenting today with right leg pain and swelling. States that his symptoms started 5 days ago. He initially had a small scratch on either his foot or the back of his calf. And then he noticed the redness and the tenderness spreading up his leg. He is able to bend his legs. States he has some calf tenderness as well. His leg is warm, tender and weeping. He also reports that he has been more short of breath recently. States that his shortness of breath began to develop when he began to have the right extremity swelling and erythema. Patient is not on oxygen at home. Denies any wheezing. Reports he has been increasing short of breath with exertion for 5 days. Denies any cough. (DIONNE VIDAL) - Related Data Allergies/Adverse Reactions: No Known Allergies Allergy (Verified 01/05/20 13:04) Past Medical History - Social History Smoking Status: Never Smoker Chew tobacco use (# tins/day): No Frequency of alcohol use: None Drug Abuse: None Family History: COPD, DM, Other - Sleep apnea Patient has homicidal ideation: No - Past Medical History Cardiac Medical History: Denies: Hx Coronary Artery Disease, Hx Hypertension Pulmonary Medical History: Reports: Hx Asthma, Hx Pneumonia Neurological Medical History: Denies: Hx Seizures Endocrine Medical History: Reports: Hx Diabetes Mellitus Type 2. Denies: Hx Diabetes Mellitus Type 1 Renal/ Medical History: Denies: Hx Peritoneal Dialysis GI Medical History: Denies: Hx Cirrhosis, Hx Crohn's Disease, Hx Hepatitis, Hx Ulcerative Colitis Musculoskeletal Medical History: Reports Hx Arthritis, Denies Hx Gout Skin Medical History: Reports Hx Cellulitis, Denies Hx Eczema, Denies Hx Psorias is Traumatic Medical History: Denies: Hx Traumatic Brain Injury Infectious Medical History: Denies: Hx Hepatitis Past Surgical History: Reports: Hx Orthopedic Surgery, Other - Tracheotomy due to pneumonia and asthma attack - Immunizations Immunizations up to date: Yes Hx Diphtheria, Pertussis, Tetanus Vaccination: Yes Hx Pneumococcal Vaccination: 02/15/14 <DIONNE VIDAL - Last Filed: 01/05/20 20:05> Review of Systems - Review of Systems Constitutional: No symptoms reported EENT: No symptoms reported Cardiovascular: No symptoms reported Respiratory: See HPI Gastrointestinal: No symptoms reported Genitourinary: No symptoms reported Male Genitourinary: No symptoms reported Musculoskeletal: No symptoms reported Skin: See HPI Hematologic/Lymphatic: No symptoms reported Neurological/Psychological: No symptoms reported <DIONNE VIDAL - Last Filed: 01/05/20 20:05> Physical Exam - Vital signs Interpretation: Tachycardic, Hypoxic, Tachypneic. No: Hypertensive, Febrile <DIONNE VIDAL - Last Filed: 01/05/20 20:05> - Vital signs Vitals: Temp Pulse Resp BP Pulse Ox 100.6 F H 119 H 20 135/73 H 96 01/05/20 12:13 01/05/20 12:13 01/05/20 12:13 01/05/20 12:13 01/05/20 12:13 - Notes Notes: Adult General: GENERAL: Alert, interacts well. No acute distress HEAD: Normocephalic, atraumatic EYES: Pupils equal, round and reactive to light. Extraocular movements intact. ENT: Airway patent. Nares patent. NECK: Full range of motion. Supple. Trachea midline. LUNGS: Clear to auscultation bilaterally, no wheezes, rales, or rhonchi. No respiratory distress. Nontender chest wall. HEART: Regular rate and rhythm. No murmurs, rubs or gallops. ABDOMEN: Soft, nontender. Enlarged abdomen. GENITOURINARY: Deferred EXTREMITIES: Right leg is swollen, erythematous, tender to palpation circumfrentially from top of his foot to his groin. Open weeping sores. dorsalis pedis pulse is palpable. Good capillary refill. BACK: Moves all extremities with full range of motion. NEUROLOGICAL: Alert and oriented x3. Normal speech. Strength 5/ 5 in all extremities. PSYCH: Normal affect, normal mood. SKIN: See extremity (DIONNE VIDAL) Course - Laboratory Result Diagrams: 01/05/20 13:35 01/05/20 13:35 <DIONNE VIDAL - Last Filed: 01/05/20 20:05> - Laboratory Result Diagrams: 01/05/20 13:35 01/05/20 13:35 <ADAL HUDSON - Last Filed: 01/06/20 01:16> - Re-evaluation Re-evalutation: 01/05/20 18:59 Patient with cellulitis extending from the top of his foot to his groin. Labs showed mild elevated white count of 10.6. Neutrophils 8.6. Lactic is 1.7. I s tarted patient on IV antibiotics and fluids as he was febrile at 100.4, tachycardic and tachypneic. I had concerns for sepsis. Upon further evaluation of the patient he reports that his shortness of breath is actually worse when his cellulitis started 5 days ago. States that he does not feel short of breath just sitting in the bed he becomes short of breath when he is laid down or if he walks or moves. Patient is not on oxygen at home. When he was placed on 2 L of oxygen his oxygen saturation increased to 100% but he remained tachypneic. I asked the nurses to walk the patient. States that immediately upon standing up his O2 dropped to 80% he was short of breath and he became tachycardic in the 130s. He states that this is new for him. As he is tachypneic and tachycardic and hypoxic on room air I will go ahead and order CTA for the patient. He did have a new right lower extremity Doppler performed today which showed no DVT. Chest x-ray shows mild pulmonary edema. Discussed with radiology about scanning the patient. Initally was informed patient was too heavy to scan but upon further inquiry scan is able to be performed. Patient was placed on 4L nasal canal to perform CTA as he is short of breath when laying flat. Initial troponin was 0.015. Pending second Troponin. A lso pending results of the CTA and venous blood gas. I do feel that patient needs to be admitted for hypoxia. Patient was turned over to Adal Hudson PA-C. 01/05/20 20:05 (DIONNE VIDAL) 01/06/20 CTA is negaative for acute findings. I suspect hypoxia is based on patient's severe morbid obesity. Patient has clear lungs, speaks without difficulty. However patient does have very significant right lower extremity cellulitis, leukocytosis, fever. Patient is denying diabetes but history states that he does have diabetes, blood glucose here is 150. Patient also appears to have chronic lymphedema. I do not think patient will do well at home based on his significant cellulitis and fever, patient will be admitted to the hospitalist service. Covered with Zosyn because of suspected diabetes. Discussed with Dr. Mullen, hospitalist, patient accepted to medical floor full admission. (ADAL HUDSON) - Vital Signs Vital signs: Temp Pulse Resp BP Pulse Ox 99.6 F 119 H 28 H 136/59 H 97 01/05/20 16:24 01/05/20 12:13 01/06/20 00:01 01/06/20 00:01 01/06/20 00:01 - Laboratory Laboratory results interpreted by me: 01/05/20 01/05/20 01/05/20 13:35 13:35 13:35 WBC 10.6 H Hgb 11.0 L Hct 33.6 L MCV 70 L MCH 22.9 L RDW 19.8 H Lymph % (Auto) 10.1 L Absolute Neuts (auto) 8.4 H Seg Neutrophils % 79.2 H PT 15.6 H APTT 40.5 H Sodium 131.6 L Chloride 97 L Glucose 149 H Calcium 8.1 L Albumin 3.3 L - EKG Interpretation by Me Additional EKG results interpreted by me: 01/05/20 19:04 Sinus tachycardia at 110, IL interval of 132, QTC of 471 (DIONNE VIDAL) Discharge <DIONNE VIDAL - Last Filed: 01/05/20 20:05> - Discharge Admitting Provider: Sebas (Hospitalist) Unit Admitted: Medical Floor <ADAL HUDSON - Last Filed: 01/06/20 01:16> - Discharge Clinical Impression: Fever Qualifiers: Fever type: unspecified Qualified Code(s): R50.9 - Fever, unspecified Cellulitis Qualifiers: Site of cellulitis: extremity Site of cellulitis of extremity: lower extremity Laterality: right Qualified Code(s): L03.115 - Cellulitis of right lower limb Condition: Stable Disposition: ADMITTED INPATIENT
--- NOTE | 2020-01-05 17:41 | RADIOLOGY REPORT (SQ) ---
EXAM DESCRIPTION: CHEST SINGLE VIEW IMAGES COMPLETED DATE/TIME: 01/05/2020 4:02 pm REASON FOR STUDY: increasing shortness of breath COMPARISON: 07/27/2015 EXAM PARAMETERS: NUMBER OF VIEWS: One view. TECHNIQUE: Single frontal radiographic view of the chest acquired. RADIATION DOSE: NA LIMITATIONS: Motion artifact obscures detail. FINDINGS: LUNGS AND PLEURA: There appear to be patchy alveolar opacities in both lungs. Evaluation for effusion and pneumothorax is limited due to motion. MEDIASTINUM AND HILAR STRUCTURES: No masses. Contour normal. HEART AND VASCULAR STRUCTURES: Moderate cardiomegaly. Mild pulmonary vascular congestion. BONES: No acute findings. HARDWARE: None in the chest. OTHER: No other significant finding. IMPRESSION: Mild pulmonary edema. Evaluation is limited due to degree of motion. TECHNICAL DOCUMENTATION: JOB ID: [id number] 2010 [employer]- All Rights Reserved Reading location - IP/workstation name: [email or web address]
--- NOTE | 2020-01-05 17:48 | RADIOLOGY REPORT (SQ) ---
EXAM DESCRIPTION: VENOUS UNILATERAL LOWER IMAGES COMPLETED DATE/TIME: 01/05/2020 5:01 pm REASON FOR STUDY: right leg swelling/erythema x 1w COMPARISON: None. TECHNIQUE: Dynamic and static boyer scale and color images acquired of the right leg venous system. S elected spectral images acquired with additional compression and augmentation maneuvers. The contrala teral common femoral vein and saphenofemoral junction were also imaged. Images stored on PACS. LIMITATIONS: Slightly limited. The distal aspect of the superficial femoral vein was not seen in e peroneal veins were not seen because of body habitus. FINDINGS: COMMON FEMORAL: Normal phasicity, compression and augmentation. No visualized echogenic ma terial on boyer scale. No defects on color images. FEMORAL: Normal compression and augmentation. No visualized echogenic material on boyer scale. No defe cts on color images. POPLITEAL: Normal compression, augmentation. No visualized echogenic material on boyer scale. No defec ts on color images. CALF VESSELS: Normal compression, augmentation. No visualized echogenic material on boyer scale. No de fects on color images. GSV and SSV: Normal compression, augmentation. No visualized echogenic material on boyer scale. No def ects on color images. ANY DEEP VENOUS INSUFFICIENCY: Not evaluated. ANY EVIDENCE OF POPLITEAL CYST: No. OTHER: No other significant finding. CONTRALATERAL COMMON FEMORAL VEIN AND SAPHENOFEMORAL JUNCTION: Normal phasicity, compression and augmentation. No visualized echogenic material on boyer scale. No de fects on color images. IMPRESSION: Slightly limited study. No evidence of DVT or SVT in the right leg. TECHNICAL DOCUMENTATION: JOB ID: [id number] 2010 [employer]- All Rights Reserved Reading location - IP/workstation name: [email or web address]
--- NOTE | 2020-01-05 18:11 | EKG REPORT ---
SEVERITY:- BORDERLINE ECG - SINUS TACHYCARDIA BORDERLINE PROLONGED QT INTERVAL : Confirmed by: Leonides Mcgovern MD 05-Jan-2020 18:10:25
[2020-01-05 20:13] LABS: VENOUS BLOOD BASE EXCESS 5.6 mmol/L; VENOUS BLOOD HCO3 30.8 mmol/L (20-32); VENOUS BLOOD PCO2 48.3 mmHg (35-63); VENOUS BLOOD PH 7.42 (7.30-7.42)
--- NOTE | 2020-01-05 20:29 | RADIOLOGY REPORT (SQ) ---
EXAM DESCRIPTION: CT angiogram of the chest. CLINICAL HISTORY: 29 years Male shortness of breath, tachy COMPARISON: Chest x-ray from today. CT chest 06/19/2019. TECHNIQUE: Axial images with 100 mL of IV contrast. MIP reconstruction. This exam was performed according to our departmental dose-optimization program, which includes automated exposure control, adjustment of the mA and/or kV according to patient size and/or use of iterative reconstruction technique.. FINDINGS: Borderline 3 cm main pulmonary artery. No evidence for central pulmonary embolus. Peripheral vessels not well evaluated. Aorta is unremarkable. No significant cardiomegaly. No evidence for mediastinal adenopathy or pericardial effusion. Unchanged small right hilar lymph nodes. . Minimal bilateral lower lobe interstitial thickening and groundglass opacities. No evidence for pleural disease. Limited images of the upper abdomen are unremarkable. IMPRESSION: 1. Limited study due to morbid obesity. 2. No obvious central pulmonary embolus. 3. Nonspecific subtle parenchymal lung abnormalities possibly representing mild edema. Early viral disease is not excluded. 4. Previous CT demonstrated a small peripheral left lower lobe nodule that is not seen on the current study.
[2020-01-06] MEDS ORDERED: PIPERACILLIN/TAZOBACTAM 4.5 GM VIAL IV ONE (01:09)
[2020-01-06] MEDS ORDERED: MAGNESIUM HYDROXIDE SUSP 30 ML UDCUP PO PRN (01:53)
[2020-01-06] MEDS ORDERED: PROMETHAZINE HCL INJ 25 MG/1 ML VIAL IV PRN (01:53)
[2020-01-06] MEDS ORDERED: MAG HYDROX/AL HYDROX/SIMETH SUSP 30 ML UDCUP PO PRN (01:53)
[2020-01-06] MEDS ORDERED: LEVALBUTEROL HCL NEB 0.63 MG/3 ML AMPUL NEB PRN (01:53)
[2020-01-06] MEDS ORDERED: PIPERACILLIN/TAZOBACTAM 3.375 GM VIAL IV SCH (02:00)
[2020-01-06] MEDS ORDERED: VANCOMYCIN HCL INJ 1000 MG VIAL IV SCH (02:00)
[2020-01-06] MEDS ORDERED: MORPHINE SULFATE 10 MG/ML INJ IV PRN ×4 (02:04→04:32)
[2020-01-06] MEDS ORDERED: LORAZEPAM INJ 2 MG/1 ML VIAL IV PRN (02:04)
[2020-01-06] MEDS ORDERED: GUAIFENESIN SYRP 200 MG/10 ML UDC PO PRN (02:04)
[2020-01-06] MEDS ORDERED: HYDRALAZINE HCL INJ/PF 20 MG/1 ML SDV IV PRN (02:04)
[2020-01-06] MEDS ORDERED: ACETAMINOPHEN 325 MG TABLET PO PRN (02:04)
[2020-01-06] MEDS: RINGERS SOLUTION,LACTATED 1,000 ML IV PRN ×2 (04:00→11:16)
[2020-01-06] MEDS ORDERED: PIPERACILLIN/TAZOBACTAM 3.375 GM VIAL IV PRN (04:29)
[2020-01-06] MEDS ORDERED: VANCOMYCIN HCL INJ 1000 MG VIAL IV PRN (04:31)
[2020-01-06] MEDS ORDERED: VANCOMYCIN HCL 2,000 MG in DEXTROSE 5%-WATER 500 ML IV ONE (04:45)
--- NOTE | 2020-01-06 04:49 | PDOC H&P ---
History of Present Illness Admission Date/PCP: 01/06/2020 01:26 No local PCP Patient complains of: Right leg pain History of Present Illness: MOON ALEJO JR is a 29 year old male who presented to the emergency room with a one-week history of pain in his right lower extremity. He admits developing increased redness and swelling in his right lower extremity 1 week ago with gradual progressive worsening and spread to involve the entire right lower extremity over the course of time. At the onset his pain was mild but it has become severe and is markedly worsened by attempts at weightbearing. Over the last 2 days he has noted associated "blisters" forming on the skin of his right lower extremity and then breaking and weeping. He further admits accompanying increased dyspnea for the last several days. He denies other associated or accompanying signs and symptoms. He admits prior similar episodes with previous infections of his extremities. He has not identified any additional aggravating or ameliorating factors for his leg pain. In the emergency room he was found to have a clinical evaluation consistent with a cellulitis of the right lower extremity accompanied by a minimally elevated white blood count at 10,600, a temperature of 100.6 F and a tachycardia in the 100's. He was subsequently admitted to the hospital for further evaluation and treatment. Past Medical History Cardiac Medical History: Reports: Other - Bilateral chronic lymphedema of the lower extremities Denies: Coronary Artery Disease, Hyperlipidema, Hypertension, Peripheral Vascular Disease Pulmonary Medical History: Reports: Asthma, Pneumonia, Respiratory Failure Denies: Chronic Obstructive Pulmonary Disease (COPD) EENT Medical History: Denies: Cataracts, Ears - Hearing aids Neurological Medical History: Denies: Hemorrhagic CVA, Ischemic CVA, Seizures Endocrine Medical History: Reports: Obesity Denies: Diabetes Mellitus Type 1, Diabetes Mellitus Type 2 - Patient denies history of diabetes mellitus, Hyperthyroidism, Hypothyroidism Renal/ Medical History: Denies: Chronic Kidney Disease, Nephrolithiasis Malignancy Medical History: Reports: None GI Medical History: Denies: Cirrhosis, Crohn's Disease, Hepatitis, Peptic Ulcer Disease, Ulcerative Colitis Musculoskeltal Medical History: Reports: Arthritis Denies: Gout Skin Medical History: Denies: Eczema, Psoriasis Psychiatric Medical History: Denies: Alcohol Dependency, Substance Abuse, Tobacco Dependency Traumatic Medical History: Reports: None Denies: Traumatic Brain Injury Hematology: Denies: Anemia, Bleeding Tendencies Infectious Medical History: Reports: Methicillin-Resistant Staph Aureus Past Surgical History Past Surgical History: Reports: Orthopedic Surgery, Other - Tracheotomy due to pneumonia and asthma attack Social History Information Source: Patient Lives with: Alone Smoking Status: Never Smoker Electronic Cigarette use?: No Frequency of Alcohol Use: Rare Hx Recreational Drug Use: No Drugs: None Hx Prescription Drug Abuse: No - Advance Directive Resuscitation Status: Full Code Surrogate healthcare decision maker:: Sonia Prater Family History Family History: COPD, DM, Other - Sleep apnea Parental Family History Reviewed: Yes Children Family History Reviewed: No Sibling(s) Family History Reviewed.: Yes Medication/Allergy Home Medications: Albuterol Sulfate [Proair HFA Inhalation Aerosol 8.5 gm MDI] 2 puff IH Q4HP PRN 06/28/18 Fluticasone/Salmeterol [Advair 250-50 Diskus 14 Dose/Diskus] 1 puff IH Q12 06/28/18 Allergies/Adverse Reactions: No Known Allergies Allergy (Verified 01/05/20 13:04) Review of Systems Constitutional: ABSENT: chills, fever(s) Eyes: ABSENT: visual disturbances, other - Eye pain Ears: ABSENT: hearing changes, other - Ear pain Nose, Mouth, and Throat: ABSENT: headache(s), sore throat Cardiovascular: ABSENT: chest pain, palpitations Respiratory: PRESENT: as per HPI, dyspnea. ABSENT: cough Gastrointestinal: ABSENT: abdominal pain, constipation, diarrhea, nausea, vomiting Genitourinary: ABSENT: dysuria, hematuria Musculoskeletal: PRESENT: as per HPI, other - Swelling redness and pain of the right lower extremity. ABSENT: back pain, joint swelling Integumentary: PRESENT: as per HPI, erythema - Erythema edema and pain of the right lower extremity, lesions - Superficial bullae of the right lower extremity. ABSENT: pruritus, rash Neurological: ABSENT: confusion, convulsions, focal weakness, memory loss, syncope Psychiatric: ABSENT: anxiety, depression Endocrine: ABSENT: cold intolerance, heat intolerance, polydipsia, polyphagia, polyuria Hematologic/Lymphatic: ABSENT: easy bleeding, easy bruising Allergic/Immunologic: ABSENT: seasonal rhinorrhea Physical Exam Vital Signs: Temp Pulse Resp BP Pulse Ox 99.6 F 119 H 28 H 136/59 H 97 01/05/20 16:24 01/05/20 12:13 01/06/20 00:01 01/06/20 00:01 01/06/20 00:01 Intake & Output 01/04/20 01/05/20 01/06/20 23:59 23:59 23:59 Intake Total 1000 Balance 1000 Weight 221.353 kg General appearance: PRESENT: no acute distress, cooperative, morbidly obese Head exam: PRESENT: atraumatic, normocephalic Eye exam: PRESENT: conjunctiva pink. ABSENT: conjunctival injection, scleral icterus Ear exam: PRESENT: normal external ear exam. ABSENT: bleeding, drainage Mouth exam: PRESENT: dry mucosa, neck supple Neck exam: ABSENT: thyromegaly, tracheal deviation Respiratory exam: PRESENT: clear to auscultation les, symmetrical, unlabored Cardiovascular exam: PRESENT: RRR. ABSENT: clicks, gallop, rubs Pulses: PRESENT: normal carotid pulses, normal radial pulses Vascular exam: PRESENT: normal capillary refill. ABSENT: pallor GI/Abdominal exam: PRESENT: normal bowel sounds, soft Rectal exam: PRESENT: deferred Extremities exam: PRESENT: tenderness - Erythema and edema with pain and tenderness palpation of the right lower extremity from the groin to the foot., other - Lymphedema of the bilateral lower extremities. ABSENT: joint swelling Neurological exam: PRESENT: alert, oriented to person, oriented to place, oriented to time, oriented to situation, CN II-XII grossly intact. ABSENT: motor sensory deficit Psychiatric exam: PRESENT: appropriate affect, normal mood Skin exam: PRESENT: dry, erythema - Erythema and edema with tenderness to palpation and superficial bullae present in the right lower extremity from the groin to the foot., intact, warm. ABSENT: jaundice, rash, urticaria Results Laboratory Results: 01/05/20 13:35 01/05/20 13:35 01/05/20 01/05/20 01/05/20 13:35 13:35 13:35 WBC 10.6 H RBC 4.82 Hgb 11.0 L Hct 33.6 L MCV 70 L MCH 22.9 L MCHC 32.8 RDW 19.8 H Plt Count 277 Seg Neutrophils % 79.2 H VBG pH VBG pCO2 VBG HCO3 VBG Base Excess Sodium 131.6 L Potassium 4.0 Chloride 97 L Carbon Dioxide 27 Anion Gap 8 BUN 19 Creatinine 0.79 Est GFR ( Amer) > 60 Glucose 149 H Lactic Acid 1.5 Calcium 8.1 L Total Bilirubin 0.9 AST 53 Alkaline Phosphatase 111 Total Protein 7.7 Albumin 3.3 L 01/05/20 20:01 WBC RBC Hgb Hct MCV MCH MCHC RDW Plt Count Seg Neutrophils % VBG pH 7.42 VBG pCO2 48.3 VBG HCO3 30.8 VBG Base Excess 5.6 Sodium Potassium Chloride Carbon Dioxide Anion Gap BUN Creatinine Est GFR ( Amer) Glucose Lactic Acid Calcium Total Bilirubin AST Alkaline Phosphatase Total Protein Albumin 01/05/20 01/05/20 13:35 19:10 Troponin I 0.015 0.013 Impressions: Venous Doppler Study 01/05/20 13:12 IMPRESSION: Slightly limited study. No evidence of DVT or SVT in the right leg. Tibia/Fibula X-Ray 01/05/20 13:13 IMPRESSION: NEGATIVE STUDY OF THE RIGHT TIBIA AND FIBULA. NO RADIOGRAPHIC EVIDENCE OF ACUTE INJURY. Ankle X-Ray 01/05/20 13:14 IMPRESSION: NEGATIVE STUDY OF THE RIGHT ANKLE. NO RADIOGRAPHIC EVIDENCE OF ACUTE INJURY. Chest X-Ray 01/05/20 16:50 IMPRESSION: Mild pulmonary edema. Evaluation is limited due to degree of motion. Chest/Abdomen CTA 01/05/20 19:01 IMPRESSION: 1. Limited study due to morbid obesity. 2. No obvious central pulmonary embolus. 3. Nonspecific subtle parenchymal lung abnormalities possibly representing mild edema. Early viral disease is not excluded. 4. Previous CT demonstrated a small peripheral left lower lobe nodule that is not seen on the current study. Assessment and Plan - Diagnosis (1) Cellulitis of right lower extremity Is this a current diagnosis for this admission?: Yes (2) SIRS (systemic inflammatory response syndrome) Is this a current diagnosis for this admission?: Yes (3) Lymphedema of both lower extremities Is this a current diagnosis for this admission?: Yes (4) Morbid obesity Is this a current diagnosis for this admission?: Yes (5) Morbid (severe) obesity with alveolar hypoventilation Is this a current diagnosis for this admission?: Yes (6) Asthma Qualifiers: Asthma severity: unspecified severity Asthma persistence: intermittent Asthma complication type: uncomplicated Qualified Code(s): J45.20 - Mild intermittent asthma, uncomplicated Is this a current diagnosis for this admission?: Yes - Plan Summary Summary: Patient will be admitted to the medical floor where he will receive routine supportive and symptomatic cares. He will be treated with IV antibiotics utilizing Zosyn and vancomycin. He will receive morphine sulfate 2 to 4 mg IV every 2 hours as needed for pain. He will receive Ativan 1 mg IV every 4 hours as needed for anxiety or restlessness. He will be treated with CPAP at at bedtime and as needed for sleep/rest during the day. A hemoglobin A1c, serial lactic acid levels and a thyroid profile will be obtained. CBCs, metabolic profiles, magnesium levels and additional laboratory and/or radiographic evaluations will be obtained as appropriate. Patient will be treated with a regular diet. He will use Xopenex nebulizers as needed for asthma symptoms. - Time Time Spent with patient: 15-24 minutes Medications reviewed and adjusted accordingly: Yes Anticipated discharge: Home - Inpatient Certification Based on my medical assessment, after consideration of the patient's comorbidities, presenting symptoms, or acuity I expect that the services needed warrant INPATIENT care.: Yes I certify that my determination is in accordance with my understanding of Medicare's requirements for reasonable and necessary INPATIENT services [42 CFR 412.3e].: Yes Medical Necessity: Need Close Monitoring Due to Risk of Patient Decompensation, Need for Pain Control, Need for IV Antibiotics, Risk of Complication if Not Cared For in Hospital
[2020-01-06] MEDS ORDERED: VANCOMYCIN HCL 2,000 MG in NORMAL SALINE 500 ML IV ONE (05:30)
[2020-01-06] MEDS: HEPARIN SOD (PORCINE) 5,000 UNIT/ML 1 ML VIAL SUBCUT SCH ×3 (05:37→22:17)
[2020-01-06] MEDS ORDERED: PIPERACILLIN/TAZOBACTAM 3.375 GM VIAL IV ONE (06:33)
[2020-01-06] MEDS: PIPERACILLIN SODIUM/TAZOBACTAM 3.375 GM in NORMAL SALINE 100 ML IV SCH ×3 (07:28→17:19)
[2020-01-06] MEDS: FAMOTIDINE 20 MG TABLET PO SCH ×2 (09:27→22:17)
[2020-01-06] MEDS: DOCUSATE SODIUM 100 MG CAPSULE PO SCH ×2 (09:27→17:19)
[2020-01-06] MEDS: VANCOMYCIN HCL 1,750 MG in DEXTROSE 5%-WATER 500 ML IV SCH ×2 (13:24→22:16)
--- NOTE | 2020-01-06 16:38 | PDOC PROGRESS REPORT ---
Subjective Progress Note for:: 01/06/20 Subjective:: Patient has large amount of foul-smelling weeping fluid. There are multiple ulcerated areas as well. Marked lymphedema with chronic skin changes. The left leg is not weeping but some cobblestoning is noted. Reason For Visit: CELLULITIS RIGHT LOWER EXTEMITY,MORBID OBESITY Physical Exam Vital Signs: Temp Pulse Resp BP Pulse Ox 99.4 F 100 18 129/61 H 96 01/06/20 11:09 01/06/20 15:44 01/06/20 15:44 01/06/20 11:09 01/06/20 15:44 Intake & Output 01/05/20 01/06/20 01/07/20 06:59 06:59 06:59 Intake Total 1000 3100 Balance 1000 3100 Weight 208 kg General appearance: PRESENT: cooperative, morbidly obese Head exam: PRESENT: atraumatic, normocephalic Eye exam: PRESENT: conjunctiva pink. ABSENT: scleral icterus Ear exam: PRESENT: normal external ear exam. ABSENT: bleeding, drainage Mouth exam: PRESENT: moist, tongue midline Neck exam: ABSENT: carotid bruit, JVD, lymphadenopathy, tenderness Respiratory exam: PRESENT: clear to auscultation les - Anteriorly, symmetrical, unlabored. ABSENT: rales, rhonchi, tachypnea, wheezes Cardiovascular exam: PRESENT: RRR, +S1, +S2 GI/Abdominal exam: PRESENT: soft, other - Pendulous abdomen. ABSENT: distended, tenderness Rectal exam: PRESENT: deferred Gentrourinary exam: ABSENT: indwelling catheter Extremities exam: PRESENT: other - Severe chronic lymphedema Musculoskeletal exam: PRESENT: ambulatory, deformity - Secondary to extensive and severe chronic lymphedema. ABSENT: normal inspection Neurological exam: PRESENT: alert, awake, oriented to person, oriented to place, oriented to time, oriented to situation, CN II-XII grossly intact. ABSENT: altered Psychiatric exam: PRESENT: appropriate affect. ABSENT: agitated, anxious Focused psych exam: ABSENT: delusional, paranoid, restlessness Skin exam: PRESENT: erythema, other - Large areas of white discolored tissue from excessive fluid. Significant weeping.. ABSENT: normal color Results Laboratory Results: 01/05/20 13:35 01/05/20 13:35 01/05/20 01/06/20 01/06/20 20:01 02:15 06:06 VBG pH 7.42 VBG pCO2 48.3 VBG HCO3 30.8 VBG Base Excess 5.6 Lactic Acid 1.3 1.5 01/06/20 11:12 VBG pH VBG pCO2 VBG HCO3 VBG Base Excess Lactic Acid 1.3 01/05/20 01/05/20 13:35 19:10 Troponin I 0.015 0.013 Impressions: Venous Doppler Study 01/05/20 13:12 IMPRESSION: Slightly limited study. No evidence of DVT or SVT in the right leg. Tibia/Fibula X-Ray 01/05/20 13:13 IMPRESSION: NEGATIVE STUDY OF THE RIGHT TIBIA AND FIBULA. NO RADIOGRAPHIC EVIDENCE OF ACUTE INJURY. Ankle X-Ray 01/05/20 13:14 IMPRESSION: NEGATIVE STUDY OF THE RIGHT ANKLE. NO RADIOGRAPHIC EVIDENCE OF ACUTE INJURY. Chest X-Ray 01/05/20 16:50 IMPRESSION: Mild pulmonary edema. Evaluation is limited due to degree of motion. Chest/Abdomen CTA 01/05/20 19:01 IMPRESSION: 1. Limited study due to morbid obesity. 2. No obvious central pulmonary embolus. 3. Nonspecific subtle parenchymal lung abnormalities possibly representing mild edema. Early viral disease is not excluded. 4. Previous CT demonstrated a small peripheral left lower lobe nodule that is not seen on the current study. Assessment and Plan - Diagnosis (1) Cellulitis of right lower extremity Is this a current diagnosis for this admission?: Yes Plan: Continue vancomycin and Zosyn. Patient feels there is been some improvement. No culture was obtained from the weeping fluid. (2) SIRS (systemic inflammatory response syndrome) Is this a current diagnosis for this admission?: Yes Plan: Resolved with antibiotics and IV fluids (3) Lymphedema of both lower extremities Is this a current diagnosis for this admission?: Yes Plan: Severe and chronic. The white discolored tissue on the right is nonviable. We will suggest wound care follow-up. This tissue will likely be debrided. (4) Morbid (severe) obesity with alveolar hypoventilation Is this a current diagnosis for this admission?: Yes Plan: BMI is 78.7. The patient uses CPAP at night. (5) Morbid obesity Is this a current diagnosis for this admission?: Yes Plan: BMI at 78.7 he has a severe comorbidity. [facility] Unfortunately no insurance at this time. (6) Asthma Qualifiers: Asthma severity: unspecified severity Asthma persistence: intermittent Asthma complication type: uncomplicated Qualified Code(s): J45.20 - Mild intermittent asthma, uncomplicated Is this a current diagnosis for this admission?: Yes Plan: Asymptomatic (7) Leg pain Qualifiers: Laterality: right Qualified Code(s): M79.604 - Pain in right leg Is this a current diagnosis for this admission?: Yes Plan: Secondary to cellulitis - Plan Summary Summary: Patient will be admitted to the medical floor where he will receive routine supportive and symptomatic cares. He will be treated with IV antibiotics utilizing Zosyn and vancomycin. He will receive morphine sulfate 2 to 4 mg IV every 2 hours as needed for pain. He will receive Ativan 1 mg IV every 4 hours as needed for anxiety or restlessness. He will be treated with CPAP at at bedtime and as needed for sleep/rest during the day. A hemoglobin A1c, serial lactic acid levels and a thyroid profile will be obtained. CBCs, metabolic profiles, magnesium levels and additional laboratory and/or radiographic evaluations will be obtained as appropriate. Patient will be treated with a regular diet. He will use Xopenex nebulizers as needed for asthma symptoms. - Time Time Spent with patient: 15-24 minutes Medications reviewed and adjusted accordingly: Yes Anticipated discharge: Home
[2020-01-06] MEDS ORDERED: (PENDING PHARMACY ID) (Albuterol Sulfate 2 PUFF) IH PRN (16:39)
[2020-01-06] MEDS ORDERED: ALBUTEROL SULFATE HFA (90 MCG/PUFF) 200 PUFF/8.5 GM MDI IH PRN (16:42)
[2020-01-06] MEDS: PANTOT AC/MIN OIL/PET HY-PHL OINT 50 GM TOP SCH (22:18)
[2020-01-07] MEDS: PIPERACILLIN SODIUM/TAZOBACTAM 3.375 GM in NORMAL SALINE 100 ML IV SCH ×4 (00:03→17:31)
[2020-01-07] MEDS ORDERED: PHARMACY COMMUNICATION ORDER MC SCH (04:45)
[2020-01-07] MEDS: VANCOMYCIN HCL 1,750 MG in DEXTROSE 5%-WATER 500 ML IV SCH ×3 (05:13→21:10)
[2020-01-07] MEDS: HEPARIN SOD (PORCINE) 5,000 UNIT/ML 1 ML VIAL SUBCUT SCH ×3 (05:14→21:11)
[2020-01-07 06:03] LABS: HEMATOCRIT 29.7 % (37.9-51.0); HEMOGLOBIN 9.6 g/dL (13.5-17.0); MEAN CORPUSCULAR HEMOGLOBIN 22.8 pg (27.0-33.4); MEAN CORPUSCULAR HGB CONC 32.4 g/dL (32.0-36.0); MEAN CORPUSCULAR VOLUME 70 fl (80-97); PLATELET COUNT 254 10^3/uL (150-450); RED BLOOD COUNT 4.22 10^6/uL (4.35-5.55); RED CELL DISTRIBUTION WIDTH 19.9 % (11.5-14.0); WHITE BLOOD COUNT 10.2 10^3/uL (4.0-10.5)
[2020-01-07 06:09] LABS: ANION GAP 7 (5-19); BLOOD UREA NITROGEN 12 mg/dL (7-20); CALCIUM 8.3 mg/dL (8.4-10.2); CARBON DIOXIDE 29 mmol/L (22-30); CHLORIDE 97 mmol/L (98-107); GLUCOSE 104 mg/dL (75-110); POTASSIUM 4.2 mmol/L (3.6-5.0); TRIGLYCERIDES 317 mg/dL (<150)
[2020-01-07 06:13] LABS: VANCOMYCIN,TROUGH 9.9 ug/mL (5.0-20.0)
[2020-01-07 06:20] LABS: DIRECT LDL 66 mg/dL (<100)
[2020-01-07 06:23] LABS: VLDL CHOLESTEROL 63.4 mg/dL (10-31)
[2020-01-07 06:25] LABS: FREE T3 2.29 pg/mL (2.77-5.27)
[2020-01-07 06:39] LABS: THYROID STIMULATING HORMONE 5.23 uIU/mL (0.47-4.68)
[2020-01-07] MEDS: DOCUSATE SODIUM 100 MG CAPSULE PO SCH ×2 (09:59→17:32)
[2020-01-07] MEDS: FLUTICASONE/VILANTEROL 100-25 MCG/DOSE IH SCH (09:59)
[2020-01-07] MEDS: PANTOT AC/MIN OIL/PET HY-PHL OINT 50 GM TOP SCH ×2 (09:59→21:11)
[2020-01-07] MEDS: FAMOTIDINE 20 MG TABLET PO SCH ×2 (09:59→21:11)
--- NOTE | 2020-01-07 14:35 | PDOC PROGRESS REPORT ---
Subjective Progress Note for:: 01/07/20 Subjective:: Patient feels weeping continues to improve. The patient's mother in fact is at the bedside today. I have asked wound care to come and assess the patient's leg as well. Reason For Visit: CELLULITIS RIGHT LOWER EXTEMITY,MORBID OBESITY Physical Exam Vital Signs: Temp Pulse Resp BP Pulse Ox 97.3 F 113 H 24 H 147/91 H 92 01/07/20 11:47 01/07/20 11:47 01/07/20 11:47 01/07/20 11:47 01/07/20 11:47 Intake & Output 01/06/20 01/07/20 01/08/20 06:59 06:59 06:59 Intake Total 1000 4300 2270 Balance 1000 4300 2270 Weight 208 kg 208 kg General appearance: PRESENT: no acute distress, cooperative, disheveled, morbidly obese Head exam: PRESENT: atraumatic, normocephalic Ear exam: PRESENT: normal external ear exam. ABSENT: bleeding, drainage Mouth exam: PRESENT: moist, tongue midline Neck exam: PRESENT: other - Extremely large neck with redundant tissue. ABSENT: carotid bruit, JVD, lymphadenopathy Respiratory exam: PRESENT: clear to auscultation les, symmetrical, unlabored, other - Distant breath sounds due to body habitus. ABSENT: accessory muscle use, rales, rhonchi, tachypnea, wheezes Cardiovascular exam: PRESENT: RRR, +S1, +S2. ABSENT: diastolic murmur, irregular rhythm, systolic murmur GI/Abdominal exam: PRESENT: normal bowel sounds, soft, other - Pendulous abdomen. ABSENT: tenderness Rectal exam: PRESENT: deferred Gentrourinary exam: ABSENT: indwelling catheter Extremities exam: PRESENT: other - Severe chronic lymphedema bilaterally Musculoskeletal exam: PRESENT: ambulatory. ABSENT: normal inspection Neurological exam: PRESENT: alert, awake, oriented to person, oriented to place, oriented to time, oriented to situation, CN II-XII grossly intact. ABSENT: altered Psychiatric exam: PRESENT: appropriate affect, normal mood. ABSENT: agitated, anxious Focused psych exam: ABSENT: delusional, paranoid, restlessness Skin exam: PRESENT: erythema, other - Weeping fluid. Ulcerations right lower leg Results Laboratory Results: 01/07/20 05:13 01/07/20 05:13 01/07/20 01/07/20 01/07/20 05:13 05:13 05:13 WBC 10.2 RBC 4.22 L Hgb 9.6 L Hct 29.7 L MCV 70 L MCH 22.8 L MCHC 32.4 RDW 19.9 H Plt Count 254 Sodium 132.9 L Potassium 4.2 Chloride 97 L Carbon Dioxide 29 Anion Gap 7 BUN 12 Creatinine 0.65 Est GFR ( Amer) > 60 Glucose 104 Calcium 8.3 L Magnesium 2.3 Triglycerides 317 H Cholesterol 149.10 LDL Cholesterol Direct 66 VLDL Cholesterol 63.4 H HDL Cholesterol 10 L TSH 5.23 H Free T3 pg/mL 2.29 L 01/05/20 01/05/20 13:35 19:10 Troponin I 0.015 0.013 Impressions: Venous Doppler Study 01/05/20 13:12 IMPRESSION: Slightly limited study. No evidence of DVT or SVT in the right leg. Tibia/Fibula X-Ray 01/05/20 13:13 IMPRESSION: NEGATIVE STUDY OF THE RIGHT TIBIA AND FIBULA. NO RADIOGRAPHIC EVIDENCE OF ACUTE INJURY. Ankle X-Ray 01/05/20 13:14 IMPRESSION: NEGATIVE STUDY OF THE RIGHT ANKLE. NO RADIOGRAPHIC EVIDENCE OF ACUTE INJURY. Chest X-Ray 01/05/20 16:50 IMPRESSION: Mild pulmonary edema. Evaluation is limited due to degree of motion. Chest/Abdomen CTA 01/05/20 19:01 IMPRESSION: 1. Limited study due to morbid obesity. 2. No obvious central pulmonary embolus. 3. Nonspecific subtle parenchymal lung abnormalities possibly representing mild edema. Early viral disease is not excluded. 4. Previous CT demonstrated a small peripheral left lower lobe nodule that is not seen on the current study. Assessment and Plan - Diagnosis (1) Cellulitis of right lower extremity Is this a current diagnosis for this admission?: Yes Plan: Continue antibiotic therapy (2) Venous stasis ulcer of right lower extremity Is this a current diagnosis for this admission?: Yes Plan: Whitening to areas on the right leg reflect supersaturated nonviable tissue. On ce cellulitis resolves patient will follow-up at the wound care center. These areas will likely be curetted down to healthier tissue with specialized dressings applied (3) SIRS (systemic inflammatory response syndrome) Is this a current diagnosis for this admission?: Yes Plan: Resolved with antibiotics and IV fluids (4) Lymphedema of both lower extremities Is this a current diagnosis for this admission?: Yes Plan: Severe and chronic. The white discolored tissue on the right is nonviable. We will suggest wound care follow-up. This tissue will likely be debrided. (5) Morbid (severe) obesity with alveolar hypoventilation Is this a current diagnosis for this admission?: Yes Plan: BMI is 78.7. The patient uses CPAP at night. (6) Morbid obesity Is this a current diagnosis for this admission?: Yes Plan: The patient would benefit from a true bariatric bed. An order will be placed. (7) Leg pain Qualifiers: Laterality: right Qualified Code(s): M79.604 - Pain in right leg Is this a current diagnosis for this admission?: Yes Plan: Analgesia as needed - Plan Summary Summary: Patient will be admitted to the medical floor where he will receive routine supportive and symptomatic cares. He will be treated with IV antibiotics utilizing Zosyn and vancomycin. He will receive morphine sulfate 2 to 4 mg IV every 2 hours as needed for pain. He will receive Ativan 1 mg IV every 4 hours as needed for anxiety or restlessness. He will be treated with CPAP at at bedtime and as needed for sleep/rest during the day. A hemoglobin A1c, serial lactic acid levels and a thyroid profile will be obtained. CBCs, metabolic profiles, magnesium levels and additional laboratory and/or radiographic evaluations will be obtained as appropriate. Patient will be treated with a regular diet. He will use Xopenex nebulizers as needed for asthma symptoms. - Time Time Spent with patient: 15-24 minutes Medications reviewed and adjusted accordingly: Yes Anticipated discharge: Home
--- NOTE | 2020-01-07 20:46 | CDI QUERY ---
CDI Query CDI Review: We are seeking further clarification of documentation to reflect the severity of illness of your patient. Noted in the H&P and Progress Notes: Morbid (severe) obesity with alveolar hypoventilation Patients Height: 5 ft. 4 in Weight: 457.6 lbs Calculated BMI: 78.44 kg/m2 Please clarify and document the patients BMI to support the diagnosis of Morbid Obesity. Thank you for your consideration. BRANDEN Herrera RN Clinical Cream Beater Physician Advisor [email or web address]
[2020-01-08] MEDS: PIPERACILLIN SODIUM/TAZOBACTAM 3.375 GM in NORMAL SALINE 100 ML IV SCH ×4 (00:33→17:19)
[2020-01-08] MEDS: HEPARIN SOD (PORCINE) 5,000 UNIT/ML 1 ML VIAL SUBCUT SCH ×3 (05:13→22:24)
[2020-01-08] MEDS: VANCOMYCIN HCL 1,500 MG in DEXTROSE 5%-WATER 250 ML IV SCH ×3 (06:13→22:24)
[2020-01-08] MEDS: PANTOT AC/MIN OIL/PET HY-PHL OINT 50 GM TOP SCH ×2 (10:05→22:25)
[2020-01-08] MEDS: FAMOTIDINE 20 MG TABLET PO SCH ×2 (10:05→22:24)
[2020-01-08] MEDS: FLUTICASONE/VILANTEROL 100-25 MCG/DOSE IH SCH (10:05)
[2020-01-08] MEDS: DOCUSATE SODIUM 100 MG CAPSULE PO SCH ×2 (10:05→17:20)
[2020-01-08] MEDS: POVIDONE-IODINE 10% OINTMENT 28.4 GM TP SCH ×2 (10:06→17:19)
--- NOTE | 2020-01-08 14:55 | PDOC PROGRESS REPORT ---
Subjective Progress Note for:: 01/08/20 Subjective:: Resting in chair. He says his leg does not hurt at all. He does want to ambulate but is worried about slipping on the drainage. Reason For Visit: CELLULITIS RIGHT LOWER EXTEMITY,MORBID OBESITY Physical Exam Vital Signs: Temp Pulse Resp BP Pulse Ox 98.3 F 101 H 20 140/75 H 94 01/08/20 11:33 01/08/20 11:33 01/08/20 11:33 01/08/20 11:33 01/08/20 11:33 Intake & Output 01/07/20 01/08/20 01/09/20 06:59 06:59 06:59 Intake Total 4300 3570 1034 Balance 4300 3570 1034 Weight 208 kg 208 kg General appearance: PRESENT: no acute distress, cooperative, morbidly obese, well-developed Head exam: PRESENT: atraumatic, normocephalic Eye exam: PRESENT: conjunctiva pink, EOMI. ABSENT: scleral icterus Ear exam: PRESENT: normal external ear exam. ABSENT: bleeding, drainage Mouth exam: PRESENT: moist, tongue midline Respiratory exam: PRESENT: clear to auscultation les, symmetrical, unlabored. ABSENT: rales, rhonchi, tachypnea, wheezes Cardiovascular exam: PRESENT: RRR, +S1, +S2 GI/Abdominal exam: PRESENT: soft, other - Pendulous. ABSENT: tenderness Rectal exam: PRESENT: deferred Gentrourinary exam: ABSENT: indwelling catheter Extremities exam: PRESENT: other - Extensive severe chronic lower extremity edema Neurological exam: PRESENT: alert, awake, oriented to person, oriented to place, oriented to time, oriented to situation, CN II-XII grossly intact. ABSENT: motor sensory deficit Psychiatric exam: PRESENT: appropriate affect, normal mood. ABSENT: agitated, anxious Focused psych exam: ABSENT: delusional, paranoid, restlessness Skin exam: PRESENT: erythema, other - Typical skin changes on lower extremities of chronic severe lower extremity edema including erythema and cobblestoning. ABSENT: vesicles Results Laboratory Results: 01/07/20 05:13 01/07/20 05:13 01/05/20 01/05/20 13:35 19:10 Troponin I 0.015 0.013 Impressions: Venous Doppler Study 01/05/20 13:12 IMPRESSION: Slightly limited study. No evidence of DVT or SVT in the right leg. Tibia/Fibula X-Ray 01/05/20 13:13 IMPRESSION: NEGATIVE STUDY OF THE RIGHT TIBIA AND FIBULA. NO RADIOGRAPHIC EVIDENCE OF ACUTE INJURY. Ankle X-Ray 01/05/20 13:14 IMPRESSION: NEGATIVE STUDY OF THE RIGHT ANKLE. NO RADIOGRAPHIC EVIDENCE OF ACUTE INJURY. Chest X-Ray 01/05/20 16:50 IMPRESSION: Mild pulmonary edema. Evaluation is limited due to degree of motion. Chest/Abdomen CTA 01/05/20 19:01 IMPRESSION: 1. Limited study due to morbid obesity. 2. No obvious central pulmonary embolus. 3. Nonspecific subtle parenchymal lung abnormalities possibly representing mild edema. Early viral disease is not excluded. 4. Previous CT demonstrated a small peripheral left lower lobe nodule that is not seen on the current study. Assessment and Plan - Diagnosis (1) Cellulitis of right lower extremity Is this a current diagnosis for this admission?: Yes Plan: Continue IV antibiotics. Consider changing to oral in the next day or 2. (2) Venous stasis ulcer of right lower extremity Is this a current diagnosis for this admission?: Yes Plan: Leg elevation. Once infection is resolved the patient will need ongoing lymphed parminder management. The patient will be seen in the wound care center for the ulcers. (3) Lymphedema of both lower extremities Is this a current diagnosis for this admission?: Yes Plan: Refer to lymphedema director talent management after discharge (4) Morbid (severe) obesity with alveolar hypoventilation Is this a current diagnosis for this admission?: Yes Plan: Continue CPAP (5) Morbid obesity Is this a current diagnosis for this admission?: Yes Plan: Consider enrolling in a specialized program at a dedicated bariatric center after discharge (6) Hypothyroidism Qualifiers: Hypothyroidism type: unspecified Qualified Code(s): E03.9 - Hypothyroidism, unspecified Is this a current diagnosis for this admission?: Yes Plan: TSH was elevated then T3 was slightly low. I will start levothyroxine 25 mcg daily. Recheck labs in 3 months. (7) SIRS (systemic inflammatory response syndrome) Is this a current diagnosis for this admission?: Yes Plan: Resolved (8) Leg pain Qualifiers: Laterality: right Qualified Code(s): M79.604 - Pain in right leg Is this a current diagnosis for this admission?: Yes Plan: Resolved - Plan Summary Summary: Patient will be admitted to the medical floor where he will receive routine supportive and symptomatic cares. He will be treated with IV antibiotics utilizing Zosyn and vancomycin. He will receive morphine sulfate 2 to 4 mg IV every 2 hours as needed for pain. He will receive Ativan 1 mg IV every 4 hours as needed for anxiety or restlessness. He will be treated with CPAP at at bedtime and as needed for sleep/rest during the day. A hemoglobin A1c, serial lactic acid levels and a thyroid profile will be obtained. CBCs, metabolic profiles, magnesium levels and additional laboratory and/or radiographic evaluations will be obtained as appropriate. Patient will be treated with a regular diet. He will use Xopenex nebulizers as needed for asthma symptoms. - Time Time Spent with patient: 15-24 minutes Medications reviewed and adjusted accordingly: Yes Anticipated discharge: Home Within: within 72 hours
[2020-01-09] MEDS: PIPERACILLIN SODIUM/TAZOBACTAM 3.375 GM in NORMAL SALINE 100 ML IV SCH ×4 (00:45→20:19)
[2020-01-09] MEDS: HEPARIN SOD (PORCINE) 5,000 UNIT/ML 1 ML VIAL SUBCUT SCH ×3 (05:18→22:05)
[2020-01-09] MEDS: LEVOTHYROXINE SODIUM 0.025 MG TABLET PO SCH (05:19)
[2020-01-09] MEDS: VANCOMYCIN HCL 1,500 MG in DEXTROSE 5%-WATER 250 ML IV SCH ×3 (06:41→22:04)
[2020-01-09 06:52] LABS: VANCOMYCIN,TROUGH 11.1 ug/mL (5.0-20.0)
[2020-01-09] MEDS: FAMOTIDINE 20 MG TABLET PO SCH ×2 (09:28→22:04)
[2020-01-09] MEDS: FLUTICASONE/VILANTEROL 100-25 MCG/DOSE IH SCH (09:28)
[2020-01-09] MEDS: POVIDONE-IODINE 10% OINTMENT 28.4 GM TP SCH ×2 (09:28→17:13)
[2020-01-09] MEDS: DOCUSATE SODIUM 100 MG CAPSULE PO SCH ×2 (09:28→17:14)
[2020-01-09] MEDS: PANTOT AC/MIN OIL/PET HY-PHL OINT 50 GM TOP SCH ×2 (09:29→22:04)
--- NOTE | 2020-01-09 11:33 | PDOC PROGRESS REPORT ---
Subjective Progress Note for:: 01/09/20 Subjective:: Patient is feeling good. No complaints of pain. Patient feels that the leg continues to improve. Reason For Visit: CELLULITIS RIGHT LOWER EXTEMITY,MORBID OBESITY Physical Exam Vital Signs: Temp Pulse Resp BP Pulse Ox 97.8 F 82 16 149/69 H 95 01/09/20 08:00 01/09/20 08:00 01/09/20 08:00 01/09/20 08:00 01/09/20 08:00 Intake & Output 01/08/20 01/09/20 01/10/20 06:59 06:59 06:59 Intake Total 3570 2357 250 Balance 3570 2357 250 Weight 208 kg General appearance: PRESENT: no acute distress, cooperative, morbidly obese, well-developed Head exam: PRESENT: atraumatic, normocephalic Ear exam: PRESENT: normal external ear exam. ABSENT: bleeding, drainage Mouth exam: PRESENT: moist, tongue midline Respiratory exam: PRESENT: clear to auscultation les, symmetrical, unlabored. ABSENT: accessory muscle use, rales, rhonchi, tachypnea, wheezes Cardiovascular exam: PRESENT: RRR, +S1, +S2. ABSENT: diastolic murmur, irregular rhythm, systolic murmur GI/Abdominal exam: PRESENT: normal bowel sounds, soft. ABSENT: tenderness Rectal exam: PRESENT: deferred Gentrourinary exam: ABSENT: indwelling catheter Extremities exam: PRESENT: other - Marked chronic bilateral lymphedema Musculoskeletal exam: PRESENT: ambulatory. ABSENT: normal inspection Neurological exam: PRESENT: alert, awake, oriented to person, oriented to place, oriented to time, oriented to situation, CN II-XII grossly intact. ABSENT: altered, motor sensory deficit Psychiatric exam: PRESENT: appropriate affect, normal mood. ABSENT: agitated, anxious Focused psych exam: ABSENT: delusional, paranoid, restlessness Skin exam: PRESENT: other - Still with large areas of pale spongy saturated dermis. Some areas are beginning to slough off. Results Laboratory Results: 01/07/20 05:13 01/07/20 05:13 01/05/20 01/05/20 13:35 19:10 Troponin I 0.015 0.013 Impressions: Venous Doppler Study 01/05/20 13:12 IMPRESSION: Slightly limited study. No evidence of DVT or SVT in the right leg. Tibia/Fibula X-Ray 01/05/20 13:13 IMPRESSION: NEGATIVE STUDY OF THE RIGHT TIBIA AND FIBULA. NO RADIOGRAPHIC EVIDENCE OF ACUTE INJURY. Ankle X-Ray 01/05/20 13:14 IMPRESSION: NEGATIVE STUDY OF THE RIGHT ANKLE. NO RADIOGRAPHIC EVIDENCE OF ACUTE INJURY. Chest X-Ray 01/05/20 16:50 IMPRESSION: Mild pulmonary edema. Evaluation is limited due to degree of motion. Chest/Abdomen CTA 01/05/20 19:01 IMPRESSION: 1. Limited study due to morbid obesity. 2. No obvious central pulmonary embolus. 3. Nonspecific subtle parenchymal lung abnormalities possibly representing mild edema. Early viral disease is not excluded. 4. Previous CT demonstrated a small peripheral left lower lobe nodule that is not seen on the current study. Assessment and Plan - Diagnosis (1) Cellulitis of right lower extremity Is this a current diagnosis for this admission?: Yes Plan: Continue antibiotics. Will likely be able to change to oral antibiotics in 1 to 2 days (2) Venous stasis ulcer of right lower extremity Is this a current diagnosis for this admission?: Yes Plan: I have asked that the patient's leg be washed with Hibiclens daily. (3) Lymphedema of both lower extremities Is this a current diagnosis for this admission?: Yes Plan: Lymphedema management after discharge (4) Morbid (severe) obesity with alveolar hypoventilation Is this a current diagnosis for this admission?: Yes Plan: Continue CPAP (5) Morbid obesity Is this a current diagnosis for this admission?: Yes Plan: Consider enrolling in a specialized program at a dedicated bariatric center after discharge (6) Hypothyroidism Qualifiers: Hypothyroidism type: unspecified Qualified Code(s): E03.9 - Hypothyroidism, unspecified Is this a current diagnosis for this admission?: Yes Plan: Patient seems to be tolerating 25 mcg of levothyroxine daily. (7) SIRS (systemic inflammatory response syndrome) Is this a current diagnosis for this admission?: Yes Plan: Resolved (8) Leg pain Qualifiers: Laterality: right Qualified Code(s): M79.604 - Pain in right leg Is this a current diagnosis for this admission?: Yes Plan: Continue current management - Plan Summary Summary: Patient will be admitted to the medical floor where he will receive routine supportive and symptomatic cares. He will be treated with IV antibiotics utilizing Zosyn and vancomycin. He will receive morphine sulfate 2 to 4 mg IV every 2 hours as needed for pain. He will receive Ativan 1 mg IV every 4 hours as needed for anxiety or restlessness. He will be treated with CPAP at at bedtime and as needed for sleep/rest during the day. A hemoglobin A1c, serial lactic acid levels and a thyroid profile will be obtained. CBCs, metabolic profiles, magnesium levels and additional laboratory and/or radiographic evaluations will be obtained as appropriate. Patient will be treated with a regular diet. He will use Xopenex nebulizers as needed for asthma symptoms. - Time Time Spent with patient: 15-24 minutes Medications reviewed and adjusted accordingly: Yes Anticipated discharge: Home Within: within 72 hours
[2020-01-10] MEDS: PIPERACILLIN SODIUM/TAZOBACTAM 3.375 GM in NORMAL SALINE 100 ML IV SCH ×3 (00:11→11:10)
[2020-01-10 05:17] LABS: HEMATOCRIT 28.4 % (37.9-51.0); HEMOGLOBIN 9.2 g/dL (13.5-17.0); MEAN CORPUSCULAR HGB CONC 32.3 g/dL (32.0-36.0); MEAN CORPUSCULAR VOLUME 71 fl (80-97); PLATELET COUNT 432 10^3/uL (150-450); RED BLOOD COUNT 3.98 10^6/uL (4.35-5.55); RED CELL DISTRIBUTION WIDTH 19.8 % (11.5-14.0); WHITE BLOOD COUNT 10.8 10^3/uL (4.0-10.5)
[2020-01-10 05:40] LABS: ANION GAP 5 (5-19); BLOOD UREA NITROGEN 11 mg/dL (7-20); CALCIUM 8.2 mg/dL (8.4-10.2); CARBON DIOXIDE 30 mmol/L (22-30); CHLORIDE 100 mmol/L (98-107); GLUCOSE 133 mg/dL (75-110); POTASSIUM 4.1 mmol/L (3.6-5.0)
[2020-01-10] MEDS: HEPARIN SOD (PORCINE) 5,000 UNIT/ML 1 ML VIAL SUBCUT SCH ×3 (06:14→21:33)
[2020-01-10] MEDS: VANCOMYCIN HCL 1,500 MG in DEXTROSE 5%-WATER 250 ML IV SCH (06:15)
[2020-01-10] MEDS: LEVOTHYROXINE SODIUM 0.025 MG TABLET PO SCH (06:15)
[2020-01-10] MEDS: FLUTICASONE/VILANTEROL 100-25 MCG/DOSE IH SCH (09:19)
[2020-01-10] MEDS: DOCUSATE SODIUM 100 MG CAPSULE PO SCH ×2 (09:19→17:18)
[2020-01-10] MEDS: POVIDONE-IODINE 10% OINTMENT 28.4 GM TP SCH ×2 (09:19→17:57)
[2020-01-10] MEDS: FAMOTIDINE 20 MG TABLET PO SCH ×2 (09:19→21:34)
[2020-01-10] MEDS: PANTOT AC/MIN OIL/PET HY-PHL OINT 50 GM TOP SCH ×2 (09:20→21:34)
--- NOTE | 2020-01-10 12:59 | PDOC PROGRESS REPORT ---
Subjective Progress Note for:: 01/10/20 Subjective:: They have been applying Betadine to the patient's leg. I will also institute a daily wash that the patient can continue at home. I anticipate discharge tomorrow with a follow-up appointment at the wound care center this week. The patient has an appropriate bariatric bed. He has no other complaints. Reason For Visit: CELLULITIS RIGHT LOWER EXTEMITY,MORBID OBESITY Physical Exam Vital Signs: Temp Pulse Resp BP Pulse Ox 97.9 F 81 20 156/76 H 100 01/10/20 11:59 01/10/20 11:59 01/10/20 11:59 01/10/20 11:59 01/10/20 11:59 Intake & Output 01/09/20 01/10/20 01/11/20 06:59 06:59 06:59 Intake Total 2357 2488 250 Balance 2357 2488 250 Weight 229.3 kg General appearance: PRESENT: no acute distress, cooperative, morbidly obese, well-developed Head exam: PRESENT: atraumatic, normocephalic Eye exam: PRESENT: conjunctiva pale. ABSENT: conjunctival injection, scleral icterus Ear exam: PRESENT: normal external ear exam. ABSENT: bleeding, drainage Mouth exam: PRESENT: moist, tongue midline Respiratory exam: PRESENT: clear to auscultation les, symmetrical, unlabored. ABSENT: prolonged expiratory phas, rales, rhonchi, tachypnea, wheezes Cardiovascular exam: PRESENT: RRR, +S1, +S2. ABSENT: diastolic murmur, irregular rhythm, systolic murmur GI/Abdominal exam: PRESENT: normal bowel sounds, soft. ABSENT: tenderness Rectal exam: PRESENT: deferred Gentrourinary exam: ABSENT: indwelling catheter Extremities exam: PRESENT: pedal edema, other - Severe chronic lymphedema Musculoskeletal exam: PRESENT: ambulatory. ABSENT: normal inspection Neurological exam: PRESENT: alert, awake, oriented to person, oriented to place, oriented to time, oriented to situation, CN II-XII grossly intact. ABSENT: altered Psychiatric exam: PRESENT: appropriate affect, normal mood. ABSENT: agitated, anxious Focused psych exam: ABSENT: delusional, paranoid, restlessness Skin exam: PRESENT: erythema - Continues to improve on the right leg, other - Several pill areas of saturated [place] tissue from lymphedema Results Laboratory Results: 01/10/20 05:05 01/10/20 05:05 01/10/20 01/10/20 05:05 05:05 WBC 10.8 H RBC 3.98 L Hgb 9.2 L Hct 28.4 L MCV 71 L MCH 23.0 L MCHC 32.3 RDW 19.8 H Plt Count 432 Sodium 135.1 L Potassium 4.1 Chloride 100 Carbon Dioxide 30 Anion Gap 5 BUN 11 Creatinine 0.74 Est GFR ( Amer) > 60 Glucose 133 H Calcium 8.2 L Magnesium 2.3 01/05/20 01/05/20 13:35 19:10 Troponin I 0.015 0.013 Impressions: Venous Doppler Study 01/05/20 13:12 IMPRESSION: Slightly limited study. No evidence of DVT or SVT in the right leg. Tibia/Fibula X-Ray 01/05/20 13:13 IMPRESSION: NEGATIVE STUDY OF THE RIGHT TIBIA AND FIBULA. NO RADIOGRAPHIC EVIDENCE OF ACUTE INJURY. Ankle X-Ray 01/05/20 13:14 IMPRESSION: NEGATIVE STUDY OF THE RIGHT ANKLE. NO RADIOGRAPHIC EVIDENCE OF ACU TE INJURY. Chest X-Ray 01/05/20 16:50 IMPRESSION: Mild pulmonary edema. Evaluation is limited due to degree of motion. Chest/Abdomen CTA 01/05/20 19:01 IMPRESSION: 1. Limited study due to morbid obesity. 2. No obvious central pulmonary embolus. 3. Nonspecific subtle parenchymal lung abnormalities possibly representing mild edema. Early viral disease is not excluded. 4. Previous CT demonstrated a small peripheral left lower lobe nodule that is not seen on the current study. Assessment and Plan - Diagnosis (1) Cellulitis of right lower extremity Is this a current diagnosis for this admission?: Yes Plan: Improved to the point of anticipated discharge tomorrow. The patient lost IV access. He is a difficult stick. I have started Bactrim DS 2 tabs twice daily in anticipation of discharge tomorrow. In addition to applying Betadine to the leg I have asked for a soap and water wash daily. (2) Venous stasis ulcer of right lower extremity Is this a current diagnosis for this admission?: Yes Plan: Patient will be seen at the wound care center. Treatment will include direct wound care as well as arranging lymphedema therapy. (3) Lymphedema of both lower extremities Is this a current diagnosis for this admission?: Yes Plan: The patient would benefit from a dedicated lymphedema therapist. Compression stockings are not likely to be effective due to the morphology of his legs. May need pneumatic compression devices. (4) Morbid (severe) obesity with alveolar hypoventilation Is this a current diagnosis for this admission?: Yes Plan: Continue CPAP (5) Morbid obesity Is this a current diagnosis for this admission?: Yes Plan: Consider enrolling in a specialized program at a dedicated bariatric center after discharge (6) Hypothyroidism Qualifiers: Hypothyroidism type: unspecified Qualified Code(s): E03.9 - Hypothyroidism, unspecified Is this a current diagnosis for this admission?: Yes Plan: Tolerating levothyroxine. Continue at discharge. (7) SIRS (systemic inflammatory response syndrome) Is this a current diagnosis for this admission?: Yes Plan: Resolved (8) Leg pain Qualifiers: Laterality: right Qualified Code(s): M79.604 - Pain in right leg Is this a current diagnosis for this admission?: Yes Plan: Continue current management - Plan Summary Summary: Patient will be admitted to the medical floor where he will receive routine supportive and symptomatic cares. He will be treated with IV antibiotics utilizing Zosyn and vancomycin. He will receive morphine sulfate 2 to 4 mg IV every 2 hours as needed for pain. He will receive Ativan 1 mg IV every 4 hours as needed for anxiety or restlessness. He will be treated with CPAP at at bedtime and as needed for sleep/rest during the day. A hemoglobin A1c, serial lactic acid levels and a thyroid profile will be obtained. CBCs, metabolic profiles, magnesium levels and additional laboratory and/or radiographic evaluations will be obtained as appropriate. Patient will be treated with a regular diet. He will use Xopenex nebulizers as needed for asthma symptoms. - Time Time Spent with patient: 15-24 minutes Medications reviewed and adjusted accordingly: Yes Anticipated discharge: Home Within: within 24 hours
[2020-01-10] MEDS: SULFAMETHOXAZOLE/TRIMETHOPRIM 800-160 MG TABLET PO SCH (17:56)
[2020-01-11] MEDS: HEPARIN SOD (PORCINE) 5,000 UNIT/ML 1 ML VIAL SUBCUT SCH ×2 (06:20→13:32)
[2020-01-11] MEDS: LEVOTHYROXINE SODIUM 0.025 MG TABLET PO SCH (06:20)
[2020-01-11] MEDS: SULFAMETHOXAZOLE/TRIMETHOPRIM 800-160 MG TABLET PO SCH (09:56)
[2020-01-11] MEDS: FLUTICASONE/VILANTEROL 100-25 MCG/DOSE IH SCH (09:56)
[2020-01-11] MEDS: FAMOTIDINE 20 MG TABLET PO SCH (09:57)
[2020-01-11] MEDS: DOCUSATE SODIUM 100 MG CAPSULE PO SCH (09:57)
[2020-01-11] MEDS: PANTOT AC/MIN OIL/PET HY-PHL OINT 50 GM TOP SCH (09:57)
[2020-01-11] MEDS: POVIDONE-IODINE 10% OINTMENT 28.4 GM TP SCH (09:58)
--- NOTE | 2020-01-11 12:47 | PDOC DISCHARGE SUMMARY ---
Impression - Admit/DC Date/PCP Admission Date/Primary Care Provider: 01/06/20 01:43 KAYLIE BEAR MD Discharge Date: 01/11/20 - Discharge Diagnosis (1) Cellulitis of right lower extremity Is this a current diagnosis for this admission?: Yes (2) Venous stasis ulcer of right lower extremity Is this a current diagnosis for this admission?: Yes (3) Lymphedema of both lower extremities Is this a current diagnosis for this admission?: Yes (4) Morbid (severe) obesity with alveolar hypoventilation Is this a current diagnosis for this admission?: Yes (5) Morbid obesity Is this a current diagnosis for this admission?: Yes (6) Hypothyroidism Is this a current diagnosis for this admission?: Yes (7) SIRS (systemic inflammatory response syndrome) Is this a current diagnosis for this admission?: Yes (8) Leg pain Is this a current diagnosis for this admission?: Yes - Assessment Summary: Patient will be admitted to the medical floor where he will receive routine supportive and symptomatic cares. He will be treated with IV antibiotics utilizing Zosyn and vancomycin. He will receive morphine sulfate 2 to 4 mg IV every 2 hours as needed for pain. He will receive Ativan 1 mg IV every 4 hours as needed for anxiety or restlessness. He will be treated with CPAP at at bedtime and as needed for sleep/rest during the day. A hemoglobin A1c, serial lactic acid levels and a thyroid profile will be obtained. CBCs, metabolic profiles, magnesium levels and additional laboratory and/or radiographic evaluations will be obtained as appropriate. Patient will be treated with a regular diet. He will use Xopenex nebulizers as needed for asthma symptoms. - Additional Information Resuscitation Status: Full Code Discharge Diet: As Tolerated Discharge Activity: Activity As Tolerated Referrals: WOUND CARE [Outside] - 01/18/20 11:00 am (F/U ONCE CELLITIS IS RESOLVED) Prescriptions: Sulfamethoxazole/Trimethoprim [Septra-Ds 800-160 mg Tablet] 2 tab PO BID 10 Days #40 tablet Levothyroxine Sodium [Synthroid 0.025 mg Tablet] 0.025 mg PO Q6AM #30 tablet Home Medications: Albuterol Sulfate [Proair HFA Inhalation Aerosol 8.5 gm MDI] 2 puff IH Q4HP PRN 06/28/18 Fluticasone/Salmeterol [Advair 250-50 Diskus 14 Dose/Diskus] 1 puff IH Q12 06/28/18 Docusate Sodium [Colace 100 mg Capsule] 100 mg PO BID capsule 01/11/20 Levothyroxine Sodium [Synthroid 0.025 mg Tablet] 0.025 mg PO Q6AM #30 tablet 01/11/20 Pantot AC/Min Oil/Pet Hy-Phl [Aquaphor W-Pia Heal Oint 50 gm] 1 applic TOP Q12 tube 01/11/20 Povidone-Iodine [Betadine 10% Ointment 28.4 gm] 1 applic TP BID tube 01/11/20 Sulfamethoxazole/Trimethoprim [Septra-Ds 800-160 mg Tablet] 2 tab PO BID 10 Days #40 tablet 01/11/20 History of Present Illiness History of Present Illness: MOON ALEJO JR is a 29 year old male who presented to the emergency room with a one-week history of pain in his right lower extremity. He admits developing increased redness and swelling in his right lower extremity 1 week ago with gradual progressive worsening and spread to involve the entire right lower extremity over the course of time. At the onset his pain was mild but it has become severe and is markedly worsened by attempts at weightbearing. Over the last 2 days he has noted associated "blisters" forming on the skin of his right lower extremity and then breaking and weeping. He further admits accompanying increased dyspnea for the last several days. He denies other associated or accompanying signs and symptoms. He admits prior similar episodes with previous infections of his extremities. He has not identified any additional aggravating or ameliorating factors for his leg pain. In the emergency room he was found to have a clinical evaluation consistent with a cellulitis of the right lower extremity accompanied by a minimally elevated white blood count at 10,600, a temperature of 100.6 F and a tachycardia in the 100's. He was subsequently admitted to the hospital for further evaluation and treatment. Hospital Course Hospital Course: The patient had an uncomplicated hospital stay. He did take several days for the IV antibiotics to show significant improvement with his right leg. In addition the venous stasis ulcerations and damage to the dermis and epidermal tissues encompassed large areas. The wound care center was consulted and the nurse did come to assess the patient to make suggestions. The suggestions included Betadine applied topically to help dry the lesions as well as ongoing antibiotic therapy. And additional benefit was the fact that the patient will be seen at the wound care clinic. The patient had a bariatric bed ordered. He did ambulate. He was out of bed regularly. There was a noticeable decrease in the fluid weeping from the right leg each day as we continue the antibiotics and then applied the Betadine. The patient did lose IV access the day prior to discharge. As I was going to discharge the patient on oral antibiotics when he went I started that regimen early. 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 Considering his BMI I chose to administer 2 tablets twice a day for 10 days. Physical Exam Vital Signs: Temp Pulse Resp BP Pulse Ox 99.2 F 84 20 160/71 H 94 01/11/20 11:22 01/11/20 11:22 01/11/20 11:22 01/11/20 11:22 01/11/20 11:22 Intake & Output 01/10/20 01/11/20 01/12/20 06:59 06:59 06:59 Intake Total 2488 1766 Balance 2488 1766 Weight 229.3 kg 232 kg General appearance: PRESENT: no acute distress Respiratory exam: PRESENT: clear to auscultation les, symmetrical, unlabored. ABSENT: rales, rhonchi, tachypnea, wheezes Cardiovascular exam: PRESENT: RRR, +S1, +S2 GI/Abdominal exam: PRESENT: normal bowel sounds, soft. ABSENT: tenderness Musculoskeletal exam: PRESENT: ambulatory. ABSENT: normal inspection Neurological exam: PRESENT: alert, awake, oriented to person, oriented to place, oriented to time, oriented to situation, CN II-XII grossly intact Skin exam: PRESENT: other - The surface areas of the right leg are definitely shown improvement. With application of the Betadine there is obvious drying of some of the lesions. There is less drainage. Results Laboratory Results: WBC 10.8 10^3/uL (4.0-10.5) H 01/10/20 05:05 RBC 3.98 10^6/uL (4.35-5.55) L 01/10/20 05:05 Hgb 9.2 g/dL (13.5-17.0) L 01/10/20 05:05 Hct 28.4 % (37.9-51.0) L 01/10/20 05:05 MCV 71 fl (80-97) L 01/10/20 05:05 MCH 23.0 pg (27.0-33.4) L 01/10/20 05:05 MCHC 32.3 g/dL (32.0-36.0) 01/10/20 05:05 RDW 19.8 % (11.5-14.0) H 01/10/20 05:05 Plt Count 432 10^3/uL (150-450) 01/10/20 05:05 Lymph % (Auto) 10.1 % (13-45) L 01/05/20 13:35 [place] % (Auto) 10.3 % (3-13) 01/05/20 13:35 Eos % (Auto) 0.1 % (0-6) 01/05/20 13:35 Baso % (Auto) 0.3 % (0-2) 01/05/20 13:35 Absolute Neuts (auto) 8.4 10^3/uL (1.7-8.2) H 01/05/20 13:35 Absolute Lymphs (auto) 1.1 10^3/uL (0.5-4.7) 01/05/20 13:35 Absolute Monos (auto) 1.1 10^3/uL (0.1-1.4) 01/05/20 13:35 Absolute Eos (auto) 0.0 10^3/uL (0.0-0.6) 01/05/20 13:35 Absolute Basos (auto) 0.0 10^3/uL (0.0-0.2) 01/05/20 13:35 Seg Neutrophils % 79.2 % (42-78) H 01/05/20 13:35 PT 15.6 SEC (11.4-15.4) H 01/05/20 13:35 INR 1.23 01/05/20 13:35 APTT 40.5 SEC (23.5-35.8) H 01/05/20 13:35 VBG pH 7.42 (7.30-7.42) 01/05/20 20:01 VBG pCO2 48.3 mmHg (35-63) 01/05/20 20:01 VBG HCO3 30.8 mmol/L (20-32) 01/05/20 20:01 VBG Base Excess 5.6 mmol/L 01/05/20 20:01 Sodium 135.1 mmol/L (137-145) L 01/10/20 05:05 Potassium 4.1 mmol/L (3.6-5.0) 01/10/20 05:05 Chloride 100 mmol/L (98-107) 01/10/20 05:05 Carbon Dioxide 30 mmol/L (22-30) 01/10/20 05:05 Anion Gap 5 (5-19) 01/10/20 05:05 BUN 11 mg/dL (7-20) 01/10/20 05:05 Creatinine 0.74 mg/dL (0.52-1.25) 01/10/20 05:05 Est GFR ( Amer) > 60 (>60) 01/10/20 05:05 Est GFR (MDRD) Non-Af > 60 (>60) 01/10/20 05:05 Glucose 133 mg/dL (75-110) H 01/10/20 05:05 Hemoglobin A1c % 6.1 % (4.7-6.0) H 01/07/20 05:13 Lactic Acid 1.3 mmol/L (0.7-2.1) 01/06/20 11:12 Calcium 8.2 mg/dL (8.4-10.2) L 01/10/20 05:05 Magnesium 2.3 mg/dL (1.6-2.3) 01/10/20 05:05 Total Bilirubin 0.9 mg/dL (0.2-1.3) 01/05/20 13:35 Direct Bilirubin 0.3 mg/dL (0.0-0.4) 01/05/20 13:35 Neonat Total Bilirubin Not Reportable 01/05/20 13:35 Neonat Direct Bilirubin Not Reportable 01/05/20 13:35 Neonat Indirect Bili Not Reportable 01/05/20 13:35 AST 53 U/L (17-59) 01/05/20 13:35 ALT 33 U/L (<50) 01/05/20 13:35 Alkaline Phosphatase 111 U/L (38-126) 01/05/20 13:35 Troponin I 0.013 ng/mL 01/05/20 19:10 Total Protein 7.7 g/dL (6.3-8.2) 01/05/20 13:35 Albumin 3.3 g/dL (3.5-5.0) L 01/05/20 13:35 Triglycerides 317 mg/dL (<150) H 01/07/20 05:13 Cholesterol 149.10 mg/dL (0-200) 01/07/20 05:13 LDL Cholesterol Direct 66 mg/dL (<100) 01/07/20 05:13 VLDL Cholesterol 63.4 mg/dL (10-31) H 01/07/20 05:13 HDL Cholesterol 10 mg/dL (>40) L 01/07/20 05:13 TSH 5.23 uIU/mL (0.47-4.68) H 01/07/20 05:13 Free T3 pg/mL 2.29 pg/mL (2.77-5.27) L 01/07/20 05:13 Time Trough Drawn 0551 01/09/20 05:51 Vancomycin Trough 11.1 ug/mL (5.0-20.0) 01/09/20 05:51 01/05/20 01/05/20 13:35 19:10 Troponin I 0.015 0.013 Impressions: Venous Doppler Study 01/05/20 13:12 IMPRESSION: Slightly limited study. No evidence of DVT or SVT in the right leg. Tibia/Fibula X-Ray 01/05/20 13:13 IMPRESSION: NEGATIVE STUDY OF THE RIGHT TIBIA AND FIBULA. NO RADIOGRAPHIC EVIDENCE OF ACUTE INJURY. Ankle X-Ray 01/05/20 13:14 IMPRESSION: NEGATIVE STUDY OF THE RIGHT ANKLE. NO RADIOGRAPHIC EVIDENCE OF ACUTE INJURY. Chest X-Ray 01/05/20 16:50 IMPRESSION: Mild pulmonary edema. Evaluation is limited due to degree of motion. Chest/Abdomen CTA 01/05/20 19:01 IMPRESSION: 1. Limited study due to morbid obesity. 2. No obvious central pulmonary embolus. 3. Nonspecific subtle parenchymal lung abnormalities possibly representing mild edema. Early viral disease is not excluded. 4. Previous CT demonstrated a small peripheral left lower lobe nodule that is not seen on the current study. Plan Health Concerns: The patient's super morbid obesity and severe chronic lymphedema has created a difficult situation. The morphology of his legs would make it extremely difficult to apply compression wraps. The combination of weight loss and pneumatic compression devices for the legs would be the best way to address the chronic lymphedema. At this point bariatric surgery might be a realistic approach. I encouraged the patient to be very aggressive in following up with his Medicaid application as this will open new avenues of treatment that he would not be able to access without health insurance. Unfortunately he is prone to recurrence of this complication. He is mobile and does not stay in bed and this works to his benefit. He does seem invested in getting better. Plan of Treatment: For the short-term to heal the ulcerations and resolve the cellulitis in the right leg. Long-term treatment should be serious participation in the bariatric clinic for weight loss. The plan should encompass long-term goals. Goals: Resolution of the infection and ulcerations on the right leg for short-term. Long-term goals as above. Time Spent: Greater than 30 Minutes Stroke Is this a Stroke Patient?: No Acute Heart Failure - Is this a Heart Failure Patient?: No
[2020-01-11 12:51] VITALS: BP 135/65
== END 2020-01-11 14:04 | disposition home or self-care (01) | DRG 603 ==
LOC: ER 12:06 → EH 01-06 01:43 → 4W 01-06 03:15
PROVIDERS: ADMIT Emergency Medicine; ATTEND Hospitalist
DX: L03.115 Cellulitis of right lower limb (principal); E66.2 Morbid (severe) obesity with alveolar hypoventilation; L97.919 Non-pressure chronic ulcer of unspecified part of right lower leg with unspecified severity; Z68.45 Body mass index [BMI] 70 or greater, adult; Z83.3 Family history of diabetes mellitus; I89.0 Lymphedema, not elsewhere classified; J45.20 Mild intermittent asthma, uncomplicated; I83.019 Varicose veins of right lower extremity with ulcer of unspecified site
CPT/HCPCS: 36415; 71045; 71275; 80048; 80053; 80061; 80202; 82803; 83036; 83605; 83735; 84443; 84481; 84484; 85025; 85027; 85610; 85730; 87040; 93005; 93010; 93971; 94640; 94660; 96365; 96367; 99285; J0696; J1644; J2543; J3370; J3490; J7030; J7040; J7050; J7060; J7120

== ENCOUNTER 2020-03-19 16:26 | Inpatient (IN) | payer SELFPAY ==
--- NOTE | 2020-03-19 16:31 | ER Document Report ---
ED Medical Screen (RME) - General Chief Complaint: Leg Pain Stated Complaint: LEG PAIN, RASH Time Seen by Provider: 03/19/20 16:28 Primary Care Provider: KAYLIE BEAR MD [Primary Care Provider] - Follow up as needed Mode of Arrival: Wheelchair Information source: Patient Notes: HPI; was called to the front lobby to see patient as he was having severe shortness of breath with a pulse ox of 79 to 81% on room air. Patient complaining of a worsening rash to his thighs for the past 2 weeks. States his oxygen has been low at home and has been using a family members oxygen. Patient is not chronically on oxygen. PE: Alert and oriented x3. Moderate distress noted. Patient was placed on 3 L of O2 via nasal cannula with improvement of his saturations to 100%. Charge nurse was notified. Patient was taken directly to room #19. I have greeted and performed a rapid initial assessment of this patient. A comprehensive ED assessment and evaluation of the patient, analysis of test results and completion of the medical decision making process will be conducted by additional ED providers. I have specifically instructed the patient or family members with the patient to immediately return to any nursing staff should anything change in the patient's condition or with their chief complaint. TRAVEL OUTSIDE OF THE [place] IN LAST 30 DAYS: No - Related Data Allergies/Adverse Reactions: No Known Allergies Allergy (Verified 01/05/20 13:04) Past Medical History - Past Medical History Cardiac Medical History: Denies: Hx Coronary Artery Disease, Hx Hypercholesterolemia, Hx Hypertension, Hx Peripheral Vascular Disease Pulmonary Medical History: Reports: Hx Asthma, Hx Pneumonia, Hx Respiratory Failure Denies: Hx COPD Neurological Medical History: Denies: Hx Seizures Endocrine Medical History: Denies: Hx Diabetes Mellitus Type 1, Hx Diabetes Mellitus Type 2 - Patient denies history of diabetes mellitus, Hx Hyperthyroidism, Hx Hypothyroidism Renal/ Medical History: Denies: Hx Peritoneal Dialysis GI Medical History: Denies: Hx Cirrhosis, Hx Crohn's Disease, Hx Hepatitis, Hx Ulcerative Colitis Musculoskeltal Medical History: Reports Hx Arthritis, Denies Hx Gout Skin Medical History: Reports Hx Cellulitis, Denies Hx Eczema, Denies Hx Psorias is Psychiatric Medical History: Denies: Hx Depression Traumatic Medical History: Denies: Hx Traumatic Brain Injury Infectious Medical History: Reports: Hx MRSA. Denies: Hx Hepatitis Past Surgical History: Reports: Hx Orthopedic Surgery, Other - Tracheotomy due to pneumonia and asthma attack - Immunizations Immunizations up to date: Yes Hx Diphtheria, Pertussis, Tetanus Vaccination: Yes Physical Exam - Vital signs Vitals: Resp Pulse Ox 21 H 97 03/19/20 16:41 03/19/20 16:41 Course - Vital Signs Vital signs: Temp Pulse Resp BP Pulse Ox 98.8 F 21 H 138/76 H 100 03/19/20 16:56 03/19/20 16:42 03/19/20 16:42 03/19/20 16:42 - Laboratory Result Diagrams: 03/19/20 16:40 03/19/20 16:40 Laboratory results interpreted by me: 03/19/20 16:40 WBC 10.9 H RBC 3.66 L Hgb 8.8 L Hct 26.0 L MCV 71 L MCH 24.1 L RDW 20.2 H Plt Count 528 H Lymph % (Auto) 9.5 L Absolute Neuts (auto) 9.0 H Seg Neutrophils % 82.2 H Doctor's Discharge - Discharge Referrals: KAYLIE BEAR MD [Primary Care Provider] - Follow up as needed
[2020-03-19 16:56] LABS: ABSOLUTE EOSINOPHILS # (AUTO) 0.3 10^3/uL (0.0-0.6); ABSOLUTE MONOCYTES (AUTO) 0.6 10^3/uL (0.1-1.4); BASOPHILS % (AUTO) 0.3 % (0-2); EOSINOPHILS % (AUTO) 2.6 % (0-6); HEMOGLOBIN 8.8 g/dL (13.5-17.0); LYMPHOCYTES % (AUTO) 9.5 % (13-45); MEAN CORPUSCULAR HEMOGLOBIN 24.1 pg (27.0-33.4); MEAN CORPUSCULAR HGB CONC 33.9 g/dL (32.0-36.0); MEAN CORPUSCULAR VOLUME 71 fl (80-97); MONOCYTES % (AUTO) 5.4 % (3-13); PLATELET COUNT 528 10^3/uL (150-450); RED BLOOD COUNT 3.66 10^6/uL (4.35-5.55); RED CELL DISTRIBUTION WIDTH 20.2 % (11.5-14.0); SEGMENTED NEUTROPHILS % (AUTO) 82.2 % (42-78); TOTAL CELLS COUNTED % (AUTO) 100 %; WHITE BLOOD COUNT 10.9 10^3/uL (4.0-10.5)
[2020-03-19 17:02] LABS: VENOUS BLOOD BASE EXCESS 5.2 mmol/L; VENOUS BLOOD PCO2 60.2 mmHg (35-63); VENOUS BLOOD PH 7.34 (7.30-7.42)
[2020-03-19 17:14] LABS: ALBUMIN 3.3 g/dL (3.5-5.0); ALKALINE PHOSPHATASE 110 U/L (38-126); ANION GAP 4 (5-19); ASPARTATE AMINO TRANSFERASE 30 U/L (17-59); BILIRUBIN,DIRECT 0.4 mg/dL (0.0-0.4); BILIRUBIN,TOTAL 0.9 mg/dL (0.2-1.3); BLOOD UREA NITROGEN 13 mg/dL (7-20); CALCIUM 8.6 mg/dL (8.4-10.2); CARBON DIOXIDE 32 mmol/L (22-30); CHLORIDE 100 mmol/L (98-107); CREATINE KINASE 87 U/L (55-170); GLUCOSE 121 mg/dL (75-110); POTASSIUM 4.6 mmol/L (3.6-5.0); TOTAL PROTEIN 7.5 g/dL (6.3-8.2)
--- NOTE | 2020-03-19 17:22 | RADIOLOGY REPORT (SQ) ---
EXAM DESCRIPTION: CHEST SINGLE VIEW IMAGES COMPLETED DATE/TIME: 03/19/2020 4:57 pm REASON FOR STUDY: dyspnea COMPARISON: 01/05/2020 EXAM PARAMETERS: NUMBER OF VIEWS: One view. TECHNIQUE: Single frontal radiographic view of the chest acquired. RADIATION DOSE: NA LIMITATIONS: None. FINDINGS: LUNGS AND PLEURA: Possible opacities perihilar and at the right base. MEDIASTINUM AND HILAR STRUCTURES: No masses. Contour normal. HEART AND VASCULAR STRUCTURES: Heart enlarged without overt failure. BONES: No acute findings. HARDWARE: None in the chest. OTHER: No other significant finding. IMPRESSION: Right lung pneumonia. Vascular congestion. TECHNICAL DOCUMENTATION: JOB ID: [id number] 2010 [employer]- All Rights Reserved Reading location - IP/workstation name: [email or web address]
[2020-03-19 17:26] LABS: CREATINE KINASE MB 2.14 ng/mL (<4.55); NT PRO BNP 372 pg/mL (<125)
[2020-03-19 17:29] LABS: TROPONIN I < 0.012 ng/mL
[2020-03-19] MEDS ORDERED: AZITHROMYCIN INJ 500 MG VIAL IV ONE (19:01)
[2020-03-19] MEDS ORDERED: CEFTRIAXONE 1 GM/D5W RTU 1 GM/50 ML RTUPB IV ONE (20:00)
--- NOTE | 2020-03-19 21:06 | ER Document Report ---
ED General - General Chief Complaint: Leg Swelling Stated Complaint: LEG PAIN, RASH Time Seen by Provider: 03/19/20 16:28 Primary Care Provider: KAYLIE BEAR MD [Primary Care Provider] - Follow up as needed Mode of Arrival: Wheelchair Information source: Patient Notes: This 29-year-old man presents to the emergency department he is complaining of breakdown in the inguinal area with skin related infection. He also complains of increased shortness of breath and inability to do activities that he was able to do a few weeks ago. He is morbidly obese and has had a history of lymphedema with cellulitis of the lower extremities treated in the hospital in the past. He denies chest pain, fever or a productive cough. TRAVEL OUTSIDE OF THE [place] IN LAST 30 DAYS: No - Related Data Allergies/Adverse Reactions: No Known Allergies Allergy (Verified 01/05/20 13:04) Past Medical History - General Information source: Patient - Social History Smoking Status: Never Smoker Family History: Reviewed & Not Pertinent, COPD, DM, Other - Sleep apnea - Past Medical History Cardiac Medical History: Denies: Hx Coronary Artery Disease, Hx Hypercholesterolemia, Hx Hypertension, Hx Peripheral Vascular Disease Pulmonary Medical History: Reports: Hx Asthma, Hx Pneumonia, Hx Respiratory Failure Denies: Hx COPD Neurological Medical History: Denies: Hx Seizures Endocrine Medical History: Denies: Hx Diabetes Mellitus Type 1, Hx Diabetes Mellitus Type 2 - Patient denies history of diabetes mellitus, Hx Hyperthyroidism, Hx Hypothyroidism Renal/ Medical History: Denies: Hx Peritoneal Dialysis GI Medical History: Denies: Hx Cirrhosis, Hx Crohn's Disease, Hx Hepatitis, Hx Ulcerative Colitis Musculoskeletal Medical History: Reports Hx Arthritis, Denies Hx Gout Skin Medical History: Reports Hx Cellulitis, Denies Hx Eczema, Denies Hx Psoriasis Psychiatric Medical History: Denies: Hx Depression Traumatic Medical History: Denies: Hx Traumatic Brain Injury Infectious Medical History: Reports: Hx MRSA. Denies: Hx Hepatitis Past Surgical History: Reports: Hx Orthopedic Surgery, Other - Tracheotomy due to pneumonia and asthma attack - Immunizations Immunizations up to date: Yes Hx Diphtheria, Pertussis, Tetanus Vaccination: Yes Hx Pneumococcal Vaccination: 02/15/14 Review of Systems - Review of Systems Notes: Constitutional: Negative for fever. HENT: Negative for sore throat. Eyes: Negative for visual changes. Cardiovascular: Negative for chest pain. Respiratory: + Shortness of breath. Gastrointestinal: Negative for abdominal pain, vomiting or diarrhea. Genitourinary: Negative for dysuria. Musculoskeletal: Negative for back pain. Skin: + Inguinal rash/pubic rash Neurological: Negative for headaches, weakness or numbness. 10 point ROS negative except as marked above and in HPI. Physical Exam - Vital signs Vitals: Resp Pulse Ox 21 H 97 03/19/20 16:41 03/19/20 16:41 - Notes Notes: PHYSICAL EXAMINATION: Physical Exam: General: Morbidly obese 29-year-old male no acute distress HEENT: NC/AT, pupils equal round and reactive to light, MM moist,nares clear, oropharynx clear, airway patent Neck: supple, no adenopathy, no masses. Good range of motion Lungs: Distant breath sounds obvious wheezing or rhonchi CVS: Regular rate and rhythm no murmur gallop or rub Abdomen: Soft, active, nontender, no masses, no hepatosplenomegaly Ext: Edema lower extremities right leg with a area of breakdown and exudate, right leg with a small area of breakdown. Neuro: Alert and responsive, moving all 4 extremities on command, cranial nerves intact, no focal findings Skin: Inguinal erythema and induration on the right greater than left with some induration in the pubis region. No abscess noted. PSYCH: Normal mood, normal affect. Course - Re-evaluation Re-evalutation: 03/19/20 21:05 The patient is chest x-ray was read as a possible right lower lobe infiltrate by radiology, he has had increased shortness of breath but denies fever or cough. He has cellulitis in the inguinal area and will be admitted to the hospital for IV antibiotics and close monitoring. After blood cultures patient is given ceftriaxone and Zithromax IV. I discussed the patient with the hospitalist, Dr. Mullen, he will admit the patient to the inpatient service for further evaluation and treatment. - Vital Signs Vital signs: Temp Pulse Resp BP Pulse Ox 97.7 F 19 162/73 H 100 03/19/20 19:00 03/19/20 19:01 03/19/20 19:00 03/19/20 19:01 - Laboratory Result Diagrams: 03/19/20 16:40 03/19/20 16:40 Laboratory results interpreted by me: 03/19/20 03/19/20 03/19/20 16:40 16:40 16:40 WBC 10.9 H RBC 3.66 L Hgb 8.8 L Hct 26.0 L MCV 71 L MCH 24.1 L RDW 20.2 H Plt Count 528 H Lymph % (Auto) 9.5 L Absolute Neuts (auto) 9.0 H Seg Neutrophils % 82.2 H Sodium 136.2 L Carbon Dioxide 32 H Anion Gap 4 L Glucose 121 H NT-Pro-B Natriuret Pep 372 H Albumin 3.3 L - Diagnostic Test Radiology reviewed: Image reviewed, Reports reviewed Radiology results interpreted by me: 03/19/20 21:06 Chest x-ray with a possible right lower lobe infiltrate - EKG Interpretation by Me Additional EKG results interpreted by me: 03/19/20 21:[address] Mcmullen: Normal sinus rhythm, rate 94, prolonged QT interval , normal axis, no acute ST or T wave abnormalities, no ischemic findings, there is no prior EKG to compare. Critical Care Note - Critical Care Note Total time excluding time spent on procedures (mins): 60 - Critical care time spent obtaining history from patient or surrogate, discussions with consultants, development of treatment plan with patient or surrogate, evaluation of patient's response to treatment, examination of patient, ordering and performing treatments and interventions, ordering and review of laboratory studies, re- evaluation of patient's condition, ordering and review of radiographic studies and review of old charts Discharge - Discharge Clinical Impression: Cellulitis of groin, Microcytic anemia Pneumonia involving right lung Qualifiers: Pneumonia type: due to unspecified organism Lung location: unspecified part of lung Qualified Code(s): J18.9 - Pneumonia, unspecified organism Condition: Good Disposition: ADMITTED INPATIENT Admitting Provider: Sebas (Hospitalist) Unit Admitted: Medical Floor Referrals: KAYLIE BEAR MD [Primary Care Provider] - Follow up as needed
[2020-03-19 21:56] LABS: ARTERIAL BLOOD BASE EXCESS 4.1 mmol/L; ARTERIAL BLOOD HCO3 28.6 mmol/L (20-24); ARTERIAL BLOOD O2 SATURATION 97.5 % (94-98); ARTERIAL BLOOD PCO2 43.1 mmHg (35-45); ARTERIAL BLOOD PH 7.44 (7.35-7.45); ARTERIAL BLOOD PO2 96.4 mmHg (80-100); ARTERIAL BLOOD TOTAL CO2 29.9 mmol/L (23-27)
[2020-03-19 22:00] LABS: ARTERIAL BLOOD FIO2 28%
[2020-03-19] MEDS ORDERED: LEVALBUTEROL HCL NEB 0.63 MG/3 ML AMPUL NEB PRN (23:21)
[2020-03-19] MEDS ORDERED: GUAIFENESIN SYRP 200 MG/10 ML UDC PO PRN (23:21)
[2020-03-19] MEDS ORDERED: MELATONIN 5 MG TABLET PO PRN (23:26)
[2020-03-19] MEDS ORDERED: MAG HYDROX/AL HYDROX/SIMETH SUSP 30 ML UDCUP PO PRN (23:26)
[2020-03-19] MEDS ORDERED: LORAZEPAM INJ 2 MG/1 ML VIAL IV PRN (23:26)
[2020-03-19] MEDS ORDERED: MORPHINE SULFATE 10 MG/ML INJ IV PRN ×4 (23:26→23:34)
[2020-03-19] MEDS ORDERED: MAGNESIUM HYDROXIDE SUSP 30 ML UDCUP PO PRN (23:26)
[2020-03-20] MEDS ORDERED: LINEZOLID 600 MG/300 ML RTUPB IV ONE (00:29)
[2020-03-20] MEDS: LEVALBUTEROL HCL NEB 1.25 MG/3 ML AMPUL NEB SCH ×3 (00:43→16:15)
[2020-03-20] MEDS: IPRATROPIUM BROMIDE 0.02% NEB 0.5 MG/2.5 ML AMPUL NEB SCH ×3 (00:43→16:15)
[2020-03-20] MEDS: FAMOTIDINE 20 MG TABLET PO SCH ×3 (00:45→21:26)
[2020-03-20] MEDS: LINEZOLID 600 MG/300 ML RTUPB IV SCH ×2 (00:45→11:40)
--- NOTE | 2020-03-20 01:08 | PDOC H&P ---
History of Present Illness Admission Date/PCP: 03/19/20 21:28 KAYLIE BEAR MD Patient complains of: Bilateral leg infections History of Present Illness: MOON ALEJO JR is a 29 year old male who presented the emergency room with a 2-month history of bilateral lower extremity infections. He admits progressively worsening "skin infection" in his bilateral groin/inguinal regions extending into the thighs since he was discharged from the hospital 2 months ago. His skin infection has been accompanied by local pain which worsens with movement of the affected areas. His skin infection is associated with increased dyspnea and dyspnea on exertion which he has been using his mother's oxygen machine. He admits several prior similar episodes. He denies other associated or accompanying signs and symptoms. He has not identified any aggravating or ameliorating factors for his lower extremity infections. In the emergency room he was found to be hypoxic on room air and was noted to have bilateral inguinal, groin and thigh cellulitis. Chest x-ray showed a right upper lobe pneumonia. He was subsequently admitted hospital for further evaluation treatment. Past Medical History Cardiac Medical History: Reports: Other - Bilateral chronic lymphedema of the lower extremities Denies: Atrial Fibrillation, Coronary Artery Disease, Hyperlipidema, Hypertension, Peripheral Vascular Disease Pulmonary Medical History: Reports: Asthma, Intubation, Pneumonia, Respiratory Failure Denies: Chronic Obstructive Pulmonary Disease (COPD) EENT Medical History: Denies: Cataracts, Ears - Hearing aids Neurological Medical History: Denies: Hemorrhagic CVA, Ischemic CVA, Seizures Endocrine Medical History: Reports: Hypothyroidism, Obesity Denies: Diabetes Mellitus Type 1, Diabetes Mellitus Type 2, Hyperthyroidism Renal/ Medical History: Denies: Chronic Kidney Disease, Nephrolithiasis Malignancy Medical History: Reports: None GI Medical History: Denies: Cirrhosis, Crohn's Disease, Hepatitis, Ulcerative Colitis Musculoskeltal Medical History: Reports: Arthritis Denies: Gout Skin Medical History: Denies: Eczema, Psoriasis Psychiatric Medical History: Denies: Alcohol Dependency, Depression, Substance Abuse, Tobacco Dependency Traumatic Medical History: Reports: None Denies: Traumatic Brain Injury Hematology: Denies: Anemia, Bleeding Tendencies Infectious Medical History: Reports: Methicillin-Resistant Staph Aureus Past Surgical History Past Surgical History: Reports: Orthopedic Surgery, Other - Tracheotomy due to pneumonia and asthma attack Social History Information Source: Patient Lives with: Family Smoking Status: Never Smoker Electronic Cigarette use?: No Frequency of Alcohol Use: Rare Hx Recreational Drug Use: No Drugs: None Hx Prescription Drug Abuse: No - Advance Directive Resuscitation Status: Full Code Surrogate healthcare decision maker:: Sonia Prater Family History Family History: COPD, DM, Other - Sleep apnea Parental Family History Reviewed: Yes Children Family History Reviewed: No Sibling(s) Family History Reviewed.: Yes Medication/Allergy Home Medications: Albuterol Sulfate [Proair HFA Inhalation Aerosol 8.5 gm MDI] 2 puff IH Q4HP PRN 06/28/18 Fluticasone/Salmeterol [Advair 250-50 Diskus 14 Dose/Diskus] 1 puff IH Q12 06/28/18 Docusate Sodium [Colace 100 mg Capsule] 100 mg PO BID capsule 01/11/20 Levothyroxine Sodium [Synthroid 0.025 mg Tablet] 0.025 mg PO Q6AM #30 tablet 01/11/20 Pantot AC/Min Oil/Pet Hy-Phl [Aquaphor W-Pia Heal Oint 50 gm] 1 applic TOP Q12 tube 01/11/20 Povidone-Iodine [Betadine 10% Ointment 28.4 gm] 1 applic TP BID tube 01/11/20 Sulfamethoxazole/Trimethoprim [Septra-Ds 800-160 mg Tablet] 2 tab PO BID 10 Days #40 tablet 01/11/20 Allergies/Adverse Reactions: No Known Allergies Allergy (Verified 01/05/20 13:04) Review of Systems Constitutional: ABSENT: chills, fever(s) Eyes: ABSENT: visual disturbances, other - Eye pain Ears: ABSENT: hearing changes, other - Ear pain Nose, Mouth, and Throat: ABSENT: headache(s), sore throat Cardiovascular: PRESENT: as per HPI, dyspnea on exertion, edema - Chronic lymphedema of bilateral lower extremities. ABSENT: chest pain Respiratory: PRESENT: as per HPI, dyspnea Gastrointestinal: ABSENT: abdominal pain, constipation, diarrhea, nausea, vomiting Genitourinary: ABSENT: dysuria, hematuria Musculoskeletal: ABSENT: joint swelling, muscle weakness Integumentary: PRESENT: rash - Skin infection as per HPI. ABSENT: pruritus Neurological: ABSENT: confusion, convulsions, focal weakness, memory loss, syncope Psychiatric: ABSENT: anxiety, depression Endocrine: ABSENT: cold intolerance, heat intolerance Hematologic/Lymphatic: ABSENT: easy bleeding, easy bruising Allergic/Immunologic: ABSENT: seasonal rhinorrhea Physical Exam Vital Signs: Temp Pulse Resp BP Pulse Ox 98.5 F 16 158/92 H 100 03/19/20 20:00 03/19/20 22:01 03/19/20 22:00 03/19/20 22:01 Intake & Output 03/17/20 03/18/20 03/19/20 23:59 23:59 23:59 Intake Total 50 Balance 50 Weight 256 kg General appearance: PRESENT: no acute distress, cooperative, morbidly obese Head exam: PRESENT: atraumatic, normocephalic Eye exam: PRESENT: conjunctiva pink. ABSENT: conjunctival injection, scleral icterus Ear exam: PRESENT: normal external ear exam. ABSENT: bleeding, drainage Mouth exam: PRESENT: dry mucosa, neck supple Neck exam: ABSENT: thyromegaly, tracheal deviation Respiratory exam: PRESENT: clear to auscultation les, symmetrical, unlabored Cardiovascular exam: PRESENT: RRR. ABSENT: clicks, gallop, rubs Pulses: PRESENT: normal carotid pulses, normal radial pulses Vascular exam: PRESENT: normal capillary refill. ABSENT: pallor GI/Abdominal exam: PRESENT: normal bowel sounds, soft. ABSENT: tenderness Rectal exam: PRESENT: deferred Extremities exam: PRESENT: pedal edema - Bilateral, other - 3+ edema/lymphedema bilateral lower extremities. ABSENT: joint swelling Musculoskeletal exam: ABSENT: deformity, dislocation Neurological exam: PRESENT: alert, oriented to person, oriented to place, oriented to time, oriented to situation, CN II-XII grossly intact. ABSENT: motor sensory deficit Psychiatric exam: PRESENT: appropriate affect, normal mood Skin exam: PRESENT: dry, intact, rash - Erythematous and edematous rash with superficial bullae/ulcerations and local tenderness on palpation noted in the bilateral inguinal and groin regions extending down into the medial aspects of the bilateral thighs., warm, other - Chronic venous stasis/lymphedema changes of the bilateral lower extremities. Erythematous rash noted in the intertriginous areas of the bilateral axillae and popliteal regions.. ABSENT: jaundice, urticaria Results Laboratory Results: 03/19/20 16:40 03/19/20 16:40 03/19/20 03/19/20 03/19/20 16:40 16:40 16:40 WBC 10.9 H RBC 3.66 L Hgb 8.8 L Hct 26.0 L MCV 71 L MCH 24.1 L MCHC 33.9 RDW 20.2 H Plt Count 528 H Seg Neutrophils % 82.2 H Carbonic Acid HCO3/H2CO3 Ratio ABG pH ABG pCO2 ABG pO2 ABG HCO3 ABG O2 Saturation ABG Base Excess VBG pH VBG pCO2 VBG HCO3 VBG Base Excess FiO2 Sodium 136.2 L Potassium 4.6 Chloride 100 Carbon Dioxide 32 H Anion Gap 4 L BUN 13 Creatinine 0.66 Est GFR ( Amer) > 60 Glucose 121 H Lactic Acid 2.1 Calcium 8.6 Total Bilirubin 0.9 AST 30 Alkaline Phosphatase 110 Total Protein 7.5 Albumin 3.3 L 03/19/20 03/19/20 16:50 21:15 WBC RBC Hgb Hct MCV MCH MCHC RDW Plt Count Seg Neutrophils % Carbonic Acid 1.30 HCO3/H2CO3 Ratio 22:1 ABG pH 7.44 ABG pCO2 43.1 ABG pO2 96.4 ABG HCO3 28.6 H ABG O2 Saturation 97.5 ABG Base Excess 4.1 VBG pH 7.34 VBG pCO2 60.2 VBG HCO3 32.0 VBG Base Excess 5.2 FiO2 28% Sodium Potassium Chloride Carbon Dioxide Anion Gap BUN Creatinine Est GFR ( Amer) Glucose Lactic Acid Calcium Total Bilirubin AST Alkaline Phosphatase Total Protein Albumin 03/19/20 03/19/20 16:40 16:40 Creatine Kinase 87 CK-MB (CK-2) 2.14 Troponin I < 0.012 NT-Pro-B Natriuret Pep 372 H Impressions: Chest X-Ray 03/19/20 16:28 IMPRESSION: Right lung pneumonia. Vascular congestion. Assessment and Plan - Diagnosis (1) Community acquired pneumonia of right upper lobe of lung Is this a current diagnosis for this admission?: Yes (2) Acute respiratory failure with hypoxia Is this a current diagnosis for this admission?: Yes (3) Morbid (severe) obesity with alveolar hypoventilation Is this a current diagnosis for this admission?: Yes (4) Cellulitis of groin Is this a current diagnosis for this admission?: Yes (5) Asthma Qualifiers: Asthma severity: unspecified severity Asthma persistence: intermittent Asthma complication type: uncomplicated Qualified Code(s): J45.20 - Mild intermittent asthma, uncomplicated Is this a current diagnosis for this admission?: Yes (6) Lymphedema of both lower extremities Is this a current diagnosis for this admission?: Yes (7) Microcytic anemia Is this a current diagnosis for this admission?: Yes (8) Hypothyroidism Qualifiers: Hypothyroidism type: unspecified Qualified Code(s): E03.9 - Hypothyroidism, unspecified Is this a current diagnosis for this admission?: Yes (9) Morbid obesity with BMI of 70 and over, adult Is this a current diagnosis for this admission?: Yes - Plan Summary Summary: Patient is admitted to the medical floor where he will receive routine supportive and symptomatic cares. He will be treated with supplemental oxygen as needed to maintain an adequate oxygen saturation and determination of an oxygen requirement necessitating home oxygen will be made during his hospital stay. He will receive IV antibiotics for the and his groin area cellulitis utilizing Zyvox and Levaquin. He will receive aggressive pulmonary toilet ut ilizing Xopenex, Pulmicort, Atrovent and Mucomyst delivered via nebulizer. He will use morphine sulfate 2 to 4 mg IV every 2 hours as needed for pain. He will use Ativan 1 mg IV every 4 hours as needed for anxiety or restlessness. He will be continued on his usual home medications, as appropriate, when his medication list has been verified and reconciled. CBCs, metabolic profiles and additional laboratory and/or radiographic evaluations will be obtained as needed. - Time Time Spent with patient: Less than 15 minutes Medications reviewed and adjusted accordingly: Yes Anticipated Discharge Disposition: Home with Home Health Anticipated Discharge Timeframe: within 72 hours - Inpatient Certification Based on my medical assessment, after consideration of the patient's comorbidities, presenting symptoms, or acuity I expect that the services needed warrant INPATIENT care.: Yes I certify that my determination is in accordance with my understanding of Medicare's requirements for reasonable and necessary INPATIENT services [42 CFR 412.3e].: Yes Medical Necessity: Significant Comorbidiites Make Outpatient Treatment Too Risky, Need Close Monitoring Due to Risk of Patient Decompensation, Need for Nebulizer Therapy and Monitoring of Response, Need for IV Antibiotics, Risk of Complication if Not Cared For in Hospital
[2020-03-20 04:24] LABS: HEMATOCRIT 24.1 % (37.9-51.0); MEAN CORPUSCULAR HEMOGLOBIN 23.5 pg (27.0-33.4); MEAN CORPUSCULAR HGB CONC 33.1 g/dL (32.0-36.0); MEAN CORPUSCULAR VOLUME 71 fl (80-97); PLATELET COUNT 448 10^3/uL (150-450); RED BLOOD COUNT 3.39 10^6/uL (4.35-5.55)
[2020-03-20 04:41] LABS: ANION GAP 5 (5-19); BLOOD UREA NITROGEN 12 mg/dL (7-20); CALCIUM 8.4 mg/dL (8.4-10.2); CARBON DIOXIDE 31 mmol/L (22-30); CHLORIDE 100 mmol/L (98-107); GLUCOSE 130 mg/dL (75-110); POTASSIUM 4.6 mmol/L (3.6-5.0)
[2020-03-20] MEDS: HEPARIN SOD (PORCINE) 5,000 UNIT/ML 1 ML VIAL SUBCUT SCH ×3 (05:53→21:26)
[2020-03-20] MEDS: BUDESONIDE NEB 0.5 MG/2 ML AMPUL NEB SCH ×2 (07:42→20:55)
[2020-03-20] MEDS: ACETYLCYSTEINE 20% SOLN 800 MG/4 ML VIAL.NEB NEB SCH ×2 (07:42→20:54)
[2020-03-20] MEDS: DOCUSATE SODIUM 100 MG CAPSULE PO SCH ×2 (09:18→18:16)
[2020-03-20] MEDS ORDERED: LEVOFLOXACIN 750 MG/D5W RTU 750 MG/150 ML RTUPB IV SCH (10:00)
[2020-03-20] MEDS ORDERED: OXYCODONE-ACETAMINOPHEN 5-325 MG TABLET PO PRN (18:07)
--- NOTE | 2020-03-20 18:11 | PDOC PROGRESS REPORT ---
Subjective Subjective:: Per Admitting Physician: "MOON ALEJO JR is a 29 year old male who presented the emergency room with a 2-month history of bilateral lower extremity infections. He admits progressively worsening "skin infection" in his bilateral groin/inguinal regions extending into the thighs since he was discharged from the hospital 2 months ago. His skin infection has been accompanied by local pain which worsens with movement of the affected areas. His skin infection is associated with increased dyspnea and dyspnea on exertion which he has been using his mother's oxygen machine. He admits several prior similar episodes. He denies other associated or accompanying signs and symptoms. He has not identified any aggravating or ameliorating factors for his lower extremity infections. In the emergency room he was found to be hypoxic on room air and was noted to have bilateral inguinal, groin and thigh cellulitis. Chest x-ray showed a right upper lobe pneumonia. He was subsequently admitted hospital for further evaluation treatment." 03/20/2020 Evaluated patient's lower extremity cellulitis which seems to be primarily located in his right upper medial thigh, already seems to be healing to some degree with some scabbing and receding erythema. Blood culture pending. Hemoglobin a bit lower. Patient certainly does not appear clinically is someone who has pneumonia despite what may be seen on the imaging. He has absolutely no respiratory symptoms per my discussion with him. More likely, he has some vascular congestion related to possible pulmonary hypertension from SHAN/OHS and I will get an echocardiogram to see if this is the case. He has never had an echocardiogram per our records here. Continued on antibiotics, tolerating these well. He has no new complaints today seems to be rather ambivalent about his current state. Reason For Visit: COMMUNITY-ACQUIRED RIGHT UPPER LOBE PNEUMONIA,ACUT Physical Exam Vital Signs: Temp Pulse Resp BP Pulse Ox 97.5 F 89 20 144/79 H 96 03/20/20 11:55 03/20/20 16:15 03/20/20 16:15 03/20/20 11:55 03/20/20 16:15 Intake & Output 03/19/20 03/20/20 03/21/20 06:59 06:59 06:59 Intake Total 1130 1205 Output Total 2 Balance 1130 1203 Weight 221.6 kg General appearance: PRESENT: no acute distress, well-developed, well-nourished Head exam: PRESENT: atraumatic, normocephalic Eye exam: PRESENT: conjunctiva pink Mouth exam: PRESENT: moist Respiratory exam: PRESENT: clear to auscultation les. ABSENT: rales, rhonchi, wheezes Cardiovascular exam: PRESENT: RRR. ABSENT: diastolic murmur, rubs, systolic murmur GI/Abdominal exam: PRESENT: normal bowel sounds, soft. ABSENT: distended, guarding, mass, organolmegaly, rebound, tenderness Extremities exam: PRESENT: +2 edema - Chronic lymphedema Neurological exam: PRESENT: alert, awake, oriented to person, oriented to place, oriented to time, oriented to situation Psychiatric exam: PRESENT: appropriate affect, normal mood Skin exam: PRESENT: dry, erythema - Right lower extremity medial upper thigh wit h some mild to moderate erythema seems to be receding, a few scabbed areas did not appear to have underlying abscess, warm Results Laboratory Results: 03/20/20 03:52 03/20/20 03:52 03/19/20 03/20/20 03/20/20 21:15 03:52 03:52 WBC 9.0 RBC 3.39 L Hgb 8.0 L Hct 24.1 L MCV 71 L MCH 23.5 L MCHC 33.1 RDW 20.0 H Plt Count 448 Carbonic Acid 1.30 HCO3/H2CO3 Ratio 22:1 ABG pH 7.44 ABG pCO2 43.1 ABG pO2 96.4 ABG HCO3 28.6 H ABG O2 Saturation 97.5 ABG Base Excess 4.1 FiO2 28% Sodium 135.7 L Potassium 4.6 Chloride 100 Carbon Dioxide 31 H Anion Gap 5 BUN 12 Creatinine 0.64 Est GFR ( Amer) > 60 Glucose 130 H Calcium 8.4 03/19/20 03/19/20 16:40 16:40 Creatine Kinase 87 CK-MB (CK-2) 2.14 Troponin I < 0.012 NT-Pro-B Natriuret Pep 372 H Impressions: Chest X-Ray 03/19/20 16:28 IMPRESSION: Right lung pneumonia. Vascular congestion. Assessment and Plan - Diagnosis (1) Cellulitis of groin Is this a current diagnosis for this admission?: Yes Plan: Gradual improvement in erythema, no obvious underlying abscess Started on linezolid and Levaquin on admission, probably overkill given he is not septic and has never grown resistant bacteria from the wound in the past Narrowed antibiotics to clindamycin monotherapy Blood culture negative Also on way too much narcotics only IV formulation as well, narrowed this down to oral Percocet (2) Microcytic anemia Is this a current diagnosis for this admission?: Yes Plan: Iron studies Has history of iron deficiency anemia in the past Consider Venofer (3) Cellulitis of right lower extremity Is this a current diagnosis for this admission?: Yes (4) Lymphedema of both lower extremities Is this a current diagnosis for this admission?: Yes Plan: Chronic, severe Needs referral to lymphedema clinic (5) Morbid (severe) obesity with alveolar hypoventilation Is this a current diagnosis for this admission?: Yes (6) Morbid obesity with BMI of 70 and over, adult Is this a current diagnosis for this admission?: Yes Plan: Longevity likely severely impacted negatively by markedly elevated BMI It is imperative that the patient take weight loss seriously in the future Recommend vegan diet (7) Venous stasis Is this a current diagnosis for this admission?: Yes - Plan Summary Summary: Patient is admitted to the medical floor where he will receive routine supportive and symptomatic cares. He will be treated with supplemental oxygen as needed to maintain an adequate oxygen saturation and determination of an oxygen requirement necessitating home oxygen will be made during his hospital stay. He will receive IV antibiotics for the and his groin area cellulitis utilizing Zyvox and Levaquin. He will receive aggressive pulmonary toilet utilizing Xopenex, Pulmicort, Atrovent and Mucomyst delivered via nebulizer. He will use morphine sulfate 2 to 4 mg IV every 2 hours as needed for pain. He will use Ativan 1 mg IV every 4 hours as needed for anxiety or restlessness. He will be continued on his usual home medications, as appropriate, when his medication list has been verified and reconciled. CBCs, metabolic profiles and additional laboratory and/or radiographic evaluations will be obtained as needed. - Time Time Spent with patient: 25-34 minutes Medications reviewed and adjusted accordingly: Yes Anticipated Discharge Disposition: Home with Home Health Anticipated Discharge Timeframe: within 48 hours - Inpatient Certification Based on my medical assessment, after consideration of the patient's comorbidities, presenting symptoms, or acuity I expect that the services needed warrant INPATIENT care.: Yes I certify that my determination is in accordance with my understanding of Medicare's requirements for reasonable and necessary INPATIENT services [42 CFR 412.3e].: Yes Medical Necessity: Significant Comorbidiites Make Outpatient Treatment Too Risky, Need Close Monitoring Due to Risk of Patient Decompensation, Need for Pain Control, Need for IV Antibiotics, Risk of Complication if Not Cared For in Hospital, Risk of Diagnosis Which Will Require Inpatient Eval/Care/Monitoring
[2020-03-20 18:50] LABS: ABSOLUTE RETICS # 0.128 10^6/uL (0.028-0.122); RETICULOCYTE COUNT (AUTO) 3.61 % (0.66-2.85)
[2020-03-20 19:05] LABS: IRON(TIBC) 27.6 ug/dL (49-181)
--- NOTE | 2020-03-20 20:26 | EKG REPORT ---
SEVERITY:- ABNORMAL ECG - SINUS RHYTHM PROLONGED QT INTERVAL : Confirmed by: Radha Carson 20-Mar-2020 20:25:59
[2020-03-20] MEDS: CLINDAMYCIN 600 MG/D5W RTU 600 MG/50 ML RTUPB IV SCH (21:26)
[2020-03-21] MEDS: LEVALBUTEROL HCL NEB 1.25 MG/3 ML AMPUL NEB SCH ×3 (00:07→16:47)
[2020-03-21] MEDS: IPRATROPIUM BROMIDE 0.02% NEB 0.5 MG/2.5 ML AMPUL NEB SCH ×3 (00:07→16:47)
[2020-03-21] MEDS: CLINDAMYCIN 600 MG/D5W RTU 600 MG/50 ML RTUPB IV SCH ×3 (05:45→21:22)
[2020-03-21] MEDS: HEPARIN SOD (PORCINE) 5,000 UNIT/ML 1 ML VIAL SUBCUT SCH ×3 (05:46→21:22)
[2020-03-21 06:12] LABS: ABSOLUTE EOSINOPHILS # (AUTO) 0.3 10^3/uL (0.0-0.6); ABSOLUTE LYMPHOCYTES (AUTO) 0.8 10^3/uL (0.5-4.7); ABSOLUTE MONOCYTES (AUTO) 0.5 10^3/uL (0.1-1.4); ABSOLUTE NEUT (AUTO) 7.1 10^3/uL (1.7-8.2); BASOPHILS % (AUTO) 0.4 % (0-2); HEMATOCRIT 24.1 % (37.9-51.0); LYMPHOCYTES % (AUTO) 9.7 % (13-45); MEAN CORPUSCULAR HEMOGLOBIN 23.2 pg (27.0-33.4); MEAN CORPUSCULAR HGB CONC 32.6 g/dL (32.0-36.0); MEAN CORPUSCULAR VOLUME 71 fl (80-97); MONOCYTES % (AUTO) 5.3 % (3-13); PLATELET COUNT 450 10^3/uL (150-450); RED BLOOD COUNT 3.38 10^6/uL (4.35-5.55); RED CELL DISTRIBUTION WIDTH 20.2 % (11.5-14.0); SEGMENTED NEUTROPHILS % (AUTO) 81.6 % (42-78); TOTAL CELLS COUNTED % (AUTO) 100 %; WHITE BLOOD COUNT 8.7 10^3/uL (4.0-10.5)
[2020-03-21 06:18] LABS: HEMOGLOBIN 7.9 g/dL (13.5-17.0)
[2020-03-21 06:22] LABS: ANION GAP 5 (5-19); BLOOD UREA NITROGEN 10 mg/dL (7-20); CALCIUM 8.5 mg/dL (8.4-10.2); CARBON DIOXIDE 32 mmol/L (22-30); CHLORIDE 100 mmol/L (98-107); GLUCOSE 119 mg/dL (75-110); POTASSIUM 4.9 mmol/L (3.6-5.0)
[2020-03-21] MEDS: ACETYLCYSTEINE 20% SOLN 800 MG/4 ML VIAL.NEB NEB SCH ×2 (08:09→20:55)
[2020-03-21] MEDS: BUDESONIDE NEB 0.5 MG/2 ML AMPUL NEB SCH ×2 (08:09→20:55)
[2020-03-21] MEDS: DOCUSATE SODIUM 100 MG CAPSULE PO SCH ×2 (09:45→18:03)
[2020-03-21] MEDS: FAMOTIDINE 20 MG TABLET PO SCH ×2 (10:54→21:22)
--- NOTE | 2020-03-21 14:23 | XCELERA REPORT ---
[address] [address] Transthoracic Echocardiogram Report Name: MOON ALEJO JR Age: 29 yrs Gender: Male : 1990 Patient Status: Inpatient Patient Location: [address] [place], [place] [id number] Study Date: 03/21/2020 10:20 AM Height: 64 in Weight: 488 lb BSA: 2.9 m2 Procedure: A two-dimensional transthoracic echocardiogram with color flow and Doppler was performed in limited views only. Study Quality: Poor. Poor endocardial and doppler interogation. Reason For Study: CHF, pulmonary hypertension Ordering Physician: RAJESH COPELAND Performed By: Diane Deluca Interpretation Summary Grossly normal size.Probably nawaf is mild LVH.Probably no defenite regional wall motion abnormality.LVEF probably normal at 60%.Probably normal LV diastolic function. The right ventricle is not well visualized secondary to technical limitations Right atrium not well visualized secondary to technical limitations Probably mild LA enlargement. The left atrium is not well visualized secondary to technical limitations There is no mitral valve stenosis. Probaly trace MR. Probablyno or AR. There is a trace to mild amount of tricuspid regurgitation There is moderate pulmonary hypertension by echo RVSP is 55 to 60 mm of Hg , with RA mean of 15 to 20. The pulmonic valve is not well visualized. The aortic root is not well visualized. There is no pericardial effusion. MMode/2D Measurements & Calculations IVSd: 1.3 cm LVIDd: 5.6 cm FS: 34.1 % Ao root diam: 1.9 cm LVIDs: 3.7 cm EDV(Teich): 152.8 ml Ao root area: 2.7 cm2 LVPWd: 1.3 cm ESV(Teich): 57.4 ml LA dimension: 4.4 cm EF(Teich): 62.4 % Doppler Measurements & Calculations MV E max dorinda: MV P1/2t max dorinda: Ao V2 max: LV V1 max P.6 cm/sec 144.6 cm/sec 159.0 cm/sec 6.2 mmHg MV A max dorinda: MV P1/2t: 34.1 msec Ao max PG: LV V1 max: 66.1 cm/sec MVA(P1/2t): 6.4 cm2 10.1 mmHg 120.0 cm/sec MV E/A: 2.2 MV dec slope: 1240 cm/sec2 MV dec time: 0.11 sec PA V2 max: TR max dorinda: MV P1/2t-pr_phl: 115.5 cm/sec 317.6 cm/sec 34.1 msec PA max P.3 mmHgTR max P.4 mmHg Left Ventricle Grossly normal size.Probably nawaf is mild LVH.Probably no defenite regional wall motion abnormality.LVEF probably normal at 60%.Probably normal LV diastolic function. Right Ventricle The right ventricle is not well visualized secondary to technical limitations. Atria Right atrium not well visualized secondary to technical limitations. Probably mild LA enlargement. The left atrium is not well visualized secondary to technical limitations. Mitral Valve The mitral valve is not well visualized. There is no mitral valve stenosis. Probaly trace MR. Aortic Valve The aortic valve is not well visualized secondary to technical limitations. Probablyno or AR. Tricuspid Valve There is no tricuspid stenosis. There is a trace to mild amount of tricuspid regurgitation. There is moderate pulmonary hypertension by echo. RVSP is 55 to 60 mm of Hg , with RA mean of 15 to 20. Pulmonic Valve The pulmonic valve is not well visualized. Great Vessels The aortic root is not well visualized. The inferior vena cava appeared dilated and decreased < 50% with respiration (RAP 15-20 mmHg). Effusions There is no pericardial effusion. : RAJESH COPELAND Lakshmi
[2020-03-21] MEDS ORDERED: IRON SUCROSE COMPLEX INJ/PF 100 MG/5 ML SDV IV ONE (17:03)
--- NOTE | 2020-03-21 17:05 | PDOC DISCHARGE SUMMARY ---
Impression - Admit/DC Date/PCP Admission Date/Primary Care Provider: 03/19/20 21:28 KAYLIE BEAR MD Discharge Date: 03/21/20 - Discharge Diagnosis (1) Cellulitis of groin Is this a current diagnosis for this admission?: Yes (2) Microcytic anemia Is this a current diagnosis for this admission?: Yes (3) Cellulitis of right lower extremity Is this a current diagnosis for this admission?: Yes (4) Lymphedema of both lower extremities Is this a current diagnosis for this admission?: Yes (5) Morbid (severe) obesity with alveolar hypoventilation Is this a current diagnosis for this admission?: Yes (6) Morbid obesity with BMI of 70 and over, adult Is this a current diagnosis for this admission?: Yes (7) Venous stasis Is this a current diagnosis for this admission?: Yes - Assessment Summary: Patient is admitted to the medical floor where he will receive routine supportive and symptomatic cares. He will be treated with supplemental oxygen as needed to maintain an adequate oxygen saturation and determination of an oxygen requirement necessitating home oxygen will be made during his hospital stay. He will receive IV antibiotics for the and his groin area cellulitis utilizing Zyvox and Levaquin. He will receive aggressive pulmonary toilet utilizing Xopenex, Pulmicort, Atrovent and Mucomyst delivered via nebulizer. He will use morphine sulfate 2 to 4 mg IV every 2 hours as needed for pain. He will use Ativan 1 mg IV every 4 hours as needed for anxiety or restlessness. He will be continued on his usual home medications, as appropriate, when his medication list has been verified and reconciled. CBCs, metabolic profiles and additional laboratory and/or radiographic evaluations will be obtained as ne eded. - Additional Information Resuscitation Status: Full Code Discharge Diet: As Tolerated, Other (Comments) - Vegan Discharge Activity: Activity As Tolerated, Balance Activity w/Rest Referrals: KAYLIE BEAR MD [Primary Care Provider] - Follow up as needed Prescriptions: Clindamycin HCl 600 mg PO Q8 #30 capsule Furosemide [Lasix 20 mg Tablet] 20 mg PO QAM #30 tablet Home Medications: Albuterol Sulfate [Proair HFA Inhalation Aerosol 8.5 gm MDI] 2 puff IH Q4HP PRN 06/28/18 Levothyroxine Sodium [Synthroid 0.025 mg Tablet] 0.025 mg PO Q6AM #30 tablet 01/11/20 Fluticasone Propion/Salmeterol [Wixela 250-50 Inhub] 1 each IH BID 03/20/20 Clindamycin HCl 600 mg PO Q8 #30 capsule 03/21/20 Furosemide [Lasix 20 mg Tablet] 20 mg PO QAM #30 tablet 03/21/20 History of Present Illiness History of Present Illness: Per Admitting Physician: "MOON ALEJO JR is a 29 year old male who presented the emergency room with a 2-month history of bilateral lower extremity infections. He admits progressively worsening "skin infection" in his bilateral groin/inguinal regions extending into the thighs since he was discharged from the hospital 2 months ago. His skin infection has been accompanied by local pain which worsens with movement of the affected areas. His skin infection is associated with increased dyspnea and dyspnea on exertion which he has been using his mother's oxygen machine. He admits several prior similar episodes. He denies other associated or accompanying signs and symptoms. He has not identified any aggravating or ameliorating factors for his lower extremity infections. In the emergency room he was found to be hypoxic on room air and was noted to have bilateral inguinal, groin and thigh cellulitis. Chest x-ray showed a right upper lobe pneumonia. He was subsequently admitted hospital for further evaluation treatment." Hospital Course Hospital Course: Per Admitting Physician: "MOON ALEJO JR is a 29 year old male who presented the emergency room with a 2-month history of bilateral lower extremity infections. He admits progressively worsening "skin infection" in his bilateral groin/inguinal regions extending into the thighs since he was discharged from the hospital 2 months ago. His skin infection has been accompanied by local pain which worsens with movement of the affected areas. His skin infection is associated with increased dyspnea and dyspnea on exertion which he has been using his mother's oxygen machine. He admits several prior similar episodes. He denies other associated or accompanying signs and symptoms. He has not identified any aggravating or ameliorating factors for his lower extremity infections. In the emergency room he was found to be hypoxic on room air and was noted to have bilateral inguinal, groin and thigh cellulitis. Chest x-ray showed a right upper lobe pneumonia. He was subsequently admitted hospital for further evaluation treatment." 03/20/2020 Evaluated patient's lower extremity cellulitis which seems to be primarily located in his right upper medial thigh, already seems to be healing to some degree with some scabbing and receding erythema. Blood culture pending. Hemoglobin a bit lower. Patient certainly does not appear clinically is someone who has pneumonia despite what may be seen on the imaging. He has absolutely no respiratory symptoms per my discussion with him. More likely, he has some vascular congestion related to possible pulmonary hypertension from SHAN/OHS and I will get an echocardiogram to see if this is the case. He has never had an echocardiogram per our records here. Continued on antibiotics, tolerating these well. He has no new complaints today seems to be rather ambivalent about his current state. Patient stable for discharge, wound is nearly completely healed with cellulitis resolving/resolved. Patient qualifies for home oxygen with exertion and this is been ordered. Oral clindamycin prescribed at discharge for an additional 5 days. Extensive conversation with patient regarding weight loss with a primary focus on switching to a vegan diet with vitamin and protein supplementation. 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 He has been started on low-dose daily Lasix to help with his pulmonary pressures and his lymphedema. (1) Cellulitis of groin resolved/resolving Is this a current diagnosis for this admission?: Yes Plan: Gradual improvement in erythema, no obvious underlying abscess Started on linezolid and Levaquin on admission, probably overkill given he is not septic and has never grown resistant bacteria from the wound in the past Narrowed antibiotics to oral clindamycin monotherapy, complete 7-day course total, still has 5 days prescribed at discharge Blood culture negative Also on way too much narcotics only IV formulation as well, narrowed this down to oral Percocet which he will not need at discharge Significant improvement in wounds, nearly completely resolved at discharge Would benefit from lymphedema clinic (2) Microcytic anemia improved Is this a current diagnosis for this admission?: Yes Plan: Iron studies Has history of iron deficiency anemia in the past Given Venofer Has oral iron supplements at home and patient wishes to continue taking these after discharge (3) Cellulitis of right lower extremity Is this a current diagnosis for this admission?: Yes (4) Lymphedema of both lower extremities Is this a current diagnosis for this admission?: Yes Plan: Chronic, severe Needs referral to lymphedema clinic (5) Morbid (severe) obesity with alveolar hypoventilation Is this a current diagnosis for this admission?: Yes (6) Morbid obesity with BMI of 70 and over, adult Is this a current diagnosis for this admission?: Yes Plan: Longevity likely severely impacted negatively by markedly elevated BMI It is imperative that the patient take weight loss seriously in the future Recommend vegan diet Very long extensive detailed conversation with patient regarding weight loss strategies with a strong emphasis on diet and a very strong recommendation that the patient switch to a vegan diet with iron/protein/B vitamin supplementation (7) Venous stasis Is this a current diagnosis for this admission?: Yes Pulmonary hypertension 20 mg oral Lasix daily started Needs follow-up with pulmonology Needs weight loss Needs PSG and likely CPAP for SHAN/OHS Requires long-term oxygen with exertion, 3 L nasal cannula ordered at discharge Physical Exam Vital Signs: Temp Pulse Resp BP Pulse Ox 97.4 F 94 22 H 134/68 H 95 03/21/20 11:59 03/21/20 11:59 03/21/20 11:59 03/21/20 11:59 03/21/20 11:59 Intake & Output 03/20/20 03/21/20 03/22/20 06:59 06:59 06:59 Intake Total 1130 1530 472 Balance 1130 1530 472 Weight 221.6 kg 221.6 kg 221.6 kg Exam: General appearance: PRESENT: no acute distress, well-developed, well-nourished, states he feels well and would like to be discharged home Head exam: PRESENT: atraumatic, normocephalic Eye exam: PRESENT: conjunctiva pink Mouth exam: PRESENT: moist Respiratory exam: PRESENT: clear to auscultation les. ABSENT: rales, rhonchi, wheezes Cardiovascular exam: PRESENT: RRR. ABSENT: diastolic murmur, rubs, systolic murmur GI/Abdominal exam: PRESENT: normal bowel sounds, soft. ABSENT: distended, guarding, mass, organolmegaly, rebound, tenderness Extremities exam: PRESENT: +2 edema - Chronic lymphedema Neurological exam: PRESENT: alert, awake, oriented to person, oriented to place, oriented to time, oriented to situation Psychiatric exam: PRESENT: appropriate affect, normal mood Skin exam: PRESENT: dry, erythema - Right lower extremity medial upper thigh with some mild to moderate erythema seems to be receding, a few scabbed areas did not appear to have underlying abscess, warm Results Laboratory Results: WBC 8.7 10^3/uL (4.0-10.5) 03/21/20 05:02 RBC 3.38 10^6/uL (4.35-5.55) L 03/21/20 05:02 Hgb 7.9 g/dL (13.5-17.0) L 03/21/20 05:02 Hct 24.1 % (37.9-51.0) L 03/21/20 05:02 MCV 71 fl (80-97) L 03/21/20 05:02 MCH 23.2 pg (27.0-33.4) L 03/21/20 05:02 MCHC 32.6 g/dL (32.0-36.0) 03/21/20 05:02 RDW 20.2 % (11.5-14.0) H 03/21/20 05:02 Plt Count 450 10^3/uL (150-450) 03/21/20 05:02 Lymph % (Auto) 9.7 % (13-45) L 03/21/20 05:02 [place] % (Auto) 5.3 % (3-13) 03/21/20 05:02 Eos % (Auto) 3.0 % (0-6) 03/21/20 05:02 Baso % (Auto) 0.4 % (0-2) 03/21/20 05:02 Reticulocyte # 0.128 10^6/uL (0.028-0.122) H 03/20/20 03:52 Absolute Neuts (auto) 7.1 10^3/uL (1.7-8.2) 03/21/20 05:02 Absolute Lymphs (auto) 0.8 10^3/uL (0.5-4.7) 03/21/20 05:02 Absolute Monos (auto) 0.5 10^3/uL (0.1-1.4) 03/21/20 05:02 Absolute Eos (auto) 0.3 10^3/uL (0.0-0.6) 03/21/20 05:02 Absolute Basos (auto) 0.0 10^3/uL (0.0-0.2) 03/21/20 05:02 Seg Neutrophils % 81.6 % (42-78) H 03/21/20 05:02 Retic Count (auto) 3.61 % (0.66-2.85) H 03/20/20 03:52 Carbonic Acid 1.30 mmol/L (1.05-1.35) 03/19/20 21:15 HCO3/H2CO3 Ratio 22:1 03/19/20 21:15 ABG pH 7.44 (7.35-7.45) 03/19/20 21:15 ABG pCO2 43.1 mmHg (35-45) 03/19/20 21:15 ABG pO2 96.4 mmHg (80-100) 03/19/20 21:15 ABG HCO3 28.6 mmol/L (20-24) H 03/19/20 21:15 ABG Total CO2 29.9 mmol/L (23-27) H 03/19/20 21:15 ABG O2 Saturation 97.5 % (94-98) 03/19/20 21:15 ABG Base Excess 4.1 mmol/L 03/19/20 21:15 VBG pH 7.34 (7.30-7.42) 03/19/20 16:50 VBG pCO2 60.2 mmHg (35-63) 03/19/20 16:50 VBG HCO3 32.0 mmol/L (20-32) 03/19/20 16:50 VBG Base Excess 5.2 mmol/L 03/19/20 16:50 FiO2 28% 03/19/20 21:15 Sodium 137.1 mmol/L (137-145) 03/21/20 05:02 Potassium 4.9 mmol/L (3.6-5.0) 03/21/20 05:02 Chloride 100 mmol/L (98-107) 03/21/20 05:02 Carbon Dioxide 32 mmol/L (22-30) H 03/21/20 05:02 Anion Gap 5 (5-19) 03/21/20 05:02 BUN 10 mg/dL (7-20) 03/21/20 05:02 Creatinine 0.70 mg/dL (0.52-1.25) 03/21/20 05:02 Est GFR ( Amer) > 60 (>60) 03/21/20 05:02 Est GFR (MDRD) Non-Af > 60 (>60) 03/21/20 05:02 Glucose 119 mg/dL (75-110) H 03/21/20 05:02 Lactic Acid 2.1 mmol/L (0.7-2.1) 03/19/20 16:40 Calcium 8.5 mg/dL (8.4-10.2) 03/21/20 05:02 Iron 27.6 ug/dL (49-181) L 03/20/20 03:52 TIBC 331 ug/dL (250-450) 03/20/20 03:52 % Saturation 8 % 03/20/20 03:52 Ferritin 104.00 ng/mL (17.9-464.0) 03/20/20 03:52 Total Bilirubin 0.9 mg/dL (0.2-1.3) 03/19/20 16:40 Direct Bilirubin 0.4 mg/dL (0.0-0.4) 03/19/20 16:40 Neonat Total Bilirubin Not Reportable 03/19/20 16:40 Neonat Direct Bilirubin Not Reportable 03/19/20 16:40 Neonat Indirect Bili Not Reportable 03/19/20 16:40 AST 30 U/L (17-59) 03/19/20 16:40 ALT 28 U/L (<50) 03/19/20 16:40 Alkaline Phosphatase 110 U/L (38-126) 03/19/20 16:40 Creatine Kinase 87 U/L (55-170) 03/19/20 16:40 CK-MB (CK-2) 2.14 ng/mL (<4.55) 03/19/20 16:40 Troponin I < 0.012 ng/mL 03/19/20 16:40 NT-Pro-B Natriuret Pep 372 pg/mL (<125) H 03/19/20 16:40 Total Protein 7.5 g/dL (6.3-8.2) 03/19/20 16:40 Albumin 3.3 g/dL (3.5-5.0) L 03/19/20 16:40 Vitamin B12 656.0 pg/mL (239-931) 03/20/20 03:52 Folate 6.70 ng/mL (>2.76) 03/20/20 03:52 03/19/20 16:40 CK-MB (CK-2) 2.14 Troponin I < 0.012 NT-Pro-B Natriuret Pep 372 H Impressions: Chest X-Ray 03/19/20 16:28 IMPRESSION: Right lung pneumonia. Vascular congestion. Plan Plan of Treatment: Follow-up with PCP Follow-up with sleep medicine for sleep study Follow-up with pulmonology Clindamycin for an additional 5 days at discharge Daily Lasix Time Spent: Greater than 30 Minutes Stroke Is this a Stroke Patient?: No Acute Heart Failure Is this a Heart Failure Patient?: No
[2020-03-21] MEDS: ACETAMINOPHEN 325 MG TABLET PO PRN (17:13)
[2020-03-21] MEDS ORDERED: IRON SUCROSE COMPLEX 400 MG in NORMAL SALINE 250 ML IV ONE (20:00)
[2020-03-22] MEDS: IPRATROPIUM BROMIDE 0.02% NEB 0.5 MG/2.5 ML AMPUL NEB SCH ×3 (00:01→15:24)
[2020-03-22] MEDS: LEVALBUTEROL HCL NEB 1.25 MG/3 ML AMPUL NEB SCH ×3 (00:01→15:24)
[2020-03-22] MEDS: CLINDAMYCIN 600 MG/D5W RTU 600 MG/50 ML RTUPB IV SCH ×2 (05:39→14:02)
[2020-03-22] MEDS: HEPARIN SOD (PORCINE) 5,000 UNIT/ML 1 ML VIAL SUBCUT SCH ×2 (05:42→14:22)
[2020-03-22] MEDS: BUDESONIDE NEB 0.5 MG/2 ML AMPUL NEB SCH (08:08)
[2020-03-22] MEDS: ACETYLCYSTEINE 20% SOLN 800 MG/4 ML VIAL.NEB NEB SCH (08:08)
[2020-03-22] MEDS: DOCUSATE SODIUM 100 MG CAPSULE PO SCH (09:54)
[2020-03-22] MEDS: ACETAMINOPHEN 325 MG TABLET PO PRN (10:04)
[2020-03-22] MEDS: FAMOTIDINE 20 MG TABLET PO SCH (10:06)
--- NOTE | 2020-03-22 13:50 | PDOC PROGRESS REPORT ---
Subjective Progress Note for:: 03/22/20 Subjective:: Patient feels well today. He states that he uses his mom's oxygen concentrator at home. He does not have insurance was applied in the past. We are working on trying to set him up with home oxygen at this point. Reason For Visit: COMMUNITY-ACQUIRED RIGHT UPPER LOBE PNEUMONIA,ACUT Physical Exam Vital Signs: Temp Pulse Resp BP Pulse Ox 97.7 F 96 24 H 150/72 H 96 03/22/20 11:25 03/22/20 11:25 03/22/20 11:25 03/22/20 11:25 03/22/20 11:25 Intake & Output 03/21/20 03/22/20 03/23/20 06:59 06:59 06:59 Intake Total 1530 1428 300 Balance 1530 1428 300 Weight 221.6 kg 232.3 kg General appearance: PRESENT: no acute distress, cooperative, morbidly obese Neck exam: ABSENT: JVD Respiratory exam: PRESENT: clear to auscultation les, symmetrical, unlabored. ABSENT: tachypnea, wheezes Cardiovascular exam: PRESENT: RRR, +S1, +S2. ABSENT: tachycardia Neurological exam: PRESENT: alert, awake Results Laboratory Results: 03/21/20 05:02 03/21/20 05:02 03/19/20 03/19/20 16:40 16:40 Creatine Kinase 87 CK-MB (CK-2) 2.14 Troponin I < 0.012 NT-Pro-B Natriuret Pep 372 H Impressions: Chest X-Ray 03/19/20 16:28 IMPRESSION: Right lung pneumonia. Vascular congestion. Assessment and Plan - Diagnosis (1) Cellulitis of groin Is this a current diagnosis for this admission?: Yes (3) Cellulitis of right lower extremity Is this a current diagnosis for this admission?: Yes (4) Lymphedema of both lower extremities Is this a current diagnosis for this admission?: Yes (5) Morbid (severe) obesity with alveolar hypoventilation Is this a current diagnosis for this admission?: Yes (6) Morbid obesity with BMI of 70 and over, adult Is this a current diagnosis for this admission?: Yes - Plan Summary Summary: Patient cellulitis has improved significantly and continues on clindamycin. Plan was for discharge home with clindamycin to complete therapy. He notably has hypoxia which is very likely chronic from his morbid obesity and possible obesity hypoventilation and will require home oxygen. Nursing notes 91% at rest and then going as low as 84% on room air when ambulating. Requires 3 L nasal cannula to maintain SPO2 above 88%. Discharge planning working on getting patient set up through [facility] - Time Time Spent with patient: Less than 15 minutes Anticipated Discharge Disposition: Home, Self Care Anticipated Discharge Timeframe: within 36 hours
[2020-03-22 16:13] VITALS: BP 148/72
[2020-03-22] MEDS ORDERED: CLINDAMYCIN HCL 150 MG CAPSULE PO SCH (22:00)
== END 2020-03-22 18:00 | disposition home or self-care (01) | DRG 602 ==
LOC: ER 16:26 → EH 21:28 → 4W 03-20 00:05 → 4N 03-20 19:01
PROVIDERS: ADMIT Emergency Medicine; ATTEND Internal Medicine
PROC: 5A09357 Assistance with Respiratory Ventilation, Less than 24 Consecutive Hours, Continuous Positive Airway Pressure (ICD-10-PCS; principal; 2020-03-21)
DX: L03.314 Cellulitis of groin (principal); J18.9 Pneumonia, unspecified organism; J96.11 Chronic respiratory failure with hypoxia; E66.2 Morbid (severe) obesity with alveolar hypoventilation; Z68.45 Body mass index [BMI] 70 or greater, adult; L03.115 Cellulitis of right lower limb; I27.20 Pulmonary hypertension, unspecified; I89.0 Lymphedema, not elsewhere classified; D50.9 Iron deficiency anemia, unspecified; I87.8 Other specified disorders of veins; E03.9 Hypothyroidism, unspecified; M19.90 Unspecified osteoarthritis, unspecified site; J45.20 Mild intermittent asthma, uncomplicated; Z79.899 Other long term (current) drug therapy; Z86.14 Personal history of Methicillin resistant Staphylococcus aureus infection; Z87.01 Personal history of pneumonia (recurrent)
CPT/HCPCS: 36415; 36600; 71045; 80048; 80053; 82550; 82553; 82607; 82728; 82746; 82803; 83540; 83550; 83605; 83880; 84484; 85025; 85027; 85045; 87040; 93005; 93010; 93306; 94640; 94660; 96365; 96367; 99291; J0456; J0696; J1644; J1756; J1956; J2020; J3490; J7050; J7614; J7644

== ENCOUNTER → 2020-05-05 | Outpatient (CLI) | payer OTHER ==
[2020-05-05 17:48] LABS: ABSOLUTE EOSINOPHILS # (AUTO) 0.3 10^3/uL (0.0-0.6); ABSOLUTE LYMPHOCYTES (AUTO) 1.1 10^3/uL (0.5-4.7); ABSOLUTE MONOCYTES (AUTO) 0.7 10^3/uL (0.1-1.4); ABSOLUTE NEUT (AUTO) 7.7 10^3/uL (1.7-8.2); BASOPHILS % (AUTO) 0.3 % (0-2); EOSINOPHILS % (AUTO) 2.9 % (0-6); HEMATOCRIT 30.2 % (37.9-51.0); MEAN CORPUSCULAR HEMOGLOBIN 23.5 pg (27.0-33.4); MEAN CORPUSCULAR HGB CONC 33.1 g/dL (32.0-36.0); MEAN CORPUSCULAR VOLUME 71 fl (80-97); MONOCYTES % (AUTO) 7.4 % (3-13); PLATELET COUNT 413 10^3/uL (150-450); RED BLOOD COUNT 4.24 10^6/uL (4.35-5.55); RED CELL DISTRIBUTION WIDTH 20.5 % (11.5-14.0); SEGMENTED NEUTROPHILS % (AUTO) 78.4 % (42-78); TOTAL CELLS COUNTED % (AUTO) 100 %; WHITE BLOOD COUNT 9.8 10^3/uL (4.0-10.5)
[2020-05-05 18:19] LABS: ALKALINE PHOSPHATASE 97 U/L (38-126); ANION GAP 11 (5-19); ASPARTATE AMINO TRANSFERASE 28 U/L (17-59); BILIRUBIN,DIRECT 0.3 mg/dL (0.0-0.4); BILIRUBIN,TOTAL 0.8 mg/dL (0.2-1.3); BLOOD UREA NITROGEN 16 mg/dL (7-20); C-REACTIVE PROTEIN 42.7 mg/L (<10.0); CALCIUM 9.4 mg/dL (8.4-10.2); CARBON DIOXIDE 28 mmol/L (22-30); CHLORIDE 100 mmol/L (98-107); GLUCOSE 114 mg/dL (75-110); POTASSIUM 4.2 mmol/L (3.6-5.0); TOTAL PROTEIN 8.3 g/dL (6.3-8.2)
[2020-05-05 18:29] LABS: ERYTHROCYTE SEDIMENTATION RATE 61 mm/hr (0-15)
== END ==
LOC: CCC 16:21
PROVIDERS: ATTEND Nurse Practitioner Family
DX: L97.212 Non-pressure chronic ulcer of right calf with fat layer exposed (principal)
CPT/HCPCS: 36415; 80053; 85025; 85652; 86140

== ENCOUNTER → 2020-05-16 | Outpatient (CLI) | payer OTHER ==
--- NOTE | 2020-05-17 10:52 | RADIOLOGY REPORT (SQ) ---
EXAM DESCRIPTION: ARTERIAL LOWER EXTREM BILAT IMAGES COMPLETED DATE/TIME: 05/16/2020 3:39 pm REASON FOR STUDY: RT CALF ULCER L97.212 NON-PRESSURE CHRONIC ULCER OF RIGHT CALF W FAT LAYER COMPARISON: None. TECHNIQUE: Dynamic and static boyer scale and color images acquired of the lower extremity arteries. Additional selected spectral images recorded. LIMITATIONS: Difficult and limited exam due to the patient's body habitus which precluded evaluation of ABIs. FINDINGS: RIGHT LEG: FEMORAL ARTERIES: The common femoral, profunda femoris and superficial femoral arteries are patent a nd there are multiphasic spectral waveforms throughout. There is no stenosis or aneurysm of the vess els. POPLITEAL ARTERY: Patent with normal multiphasic spectral waveforms and no stenosis or aneurysm. PATENT TIBIOPERONEAL TRUNK AND 3 VESSEL RUNOFF: Patent with multiphasic spectral waveforms and no ellie nosis. OTHER: No other findings. LEFT LEG: FEMORAL ARTERIES: The common femoral, profunda femoris and superficial femoral arteries are patent an d there are multiphasic spectral waveforms throughout. There is no stenosis or aneurysm of the vesse ls. POPLITEAL ARTERY: Patent with normal multiphasic spectral waveforms and no stenosis or aneurysm. PATENT TIBIOPERONEAL TRUNK AND 3 VESSEL RUNOFF: Patent with multiphasic spectral waveforms and no ellie nosis. OTHER: No other findings. IMPRESSION: DIFFICULT AND LIMITED DOPPLER ULTRASOUND DUE TO THE PATIENT'S BODY HABITUS WHICH PRECLUD ED EVALUATION OF ABIs. THERE IS NO EVIDENCE OF A HEMODYNAMICALLY SIGNIFICANT STENOSIS. TECHNICAL DOCUMENTATION: JOB ID: [id number] 2010 [employer]- All Rights Reserved Reading location - IP/workstation name: [email or web address]
== END ==
LOC: SP 13:16
PROVIDERS: ATTEND Nurse Practitioner Family
DX: L97.212 Non-pressure chronic ulcer of right calf with fat layer exposed (principal)
CPT/HCPCS: 93925